=== PATIENT | female | born 1950 | race African-American/Black ===

== ENCOUNTER → 2020-05-21 10:21 | Outpatient (CLI) | payer MEDICARE, OTHER, SELFPAY ==
--- NOTE | ~2020-05-21 | MM_ITS ---
EXAMINATION: MM screening [facility] BI w delmy HISTORY: Screening TECHNIQUE: Craniocaudal and mediolateral oblique 3-D tomosynthesis images were obtained and synthetic 2-D images were generated. CAD analysis was submitted and interpreted. COMPARISON: Comparison to multiple prior studies sequentially, with oldest reviewed study dated 06/2014. BREAST PARENCHYMAL COMPOSITION: The breasts are heterogeneously dense, which may obscure small masses . FINDINGS: There is no evidence of suspicious mass, calcification, or architectural distortion to sugg est malignancy in either breast. There has been no suspicious interval change. IMPRESSION: 1. No mammographic evidence of malignancy. 2. Recommend routine screening mammography in one year. BI-RADS Category 1: Negative Reviewed, dictated and finalized at location A.
== END ==
PROVIDERS: PCP Family Medicine; Visit Provider Family Medicine
DX: Z12.31 Encounter for screening mammogram for malignant neoplasm of breast (principal)
CPT/HCPCS: 77063; 77067

== ENCOUNTER 2020-05-25 05:09 | Emergency (ER) | payer MEDICARE, OTHER, SELFPAY ==
[2020-05-25] VITALS (13 sets, daily range): BP systolic 131–153; BP diastolic 80–92; PULSE 80–97; RESP 15–27; TEMP 36.6; O2SAT 96–100
--- NOTE | ~2020-05-25 | CT_ITS ---
EXAMINATION: CT brain wo con DATE: 05/25/2020 06:30 INDICATION: Dizziness TECHNIQUE: Computed tomography (CT) of the head was performed without intravenous contrast. Sagittal and coronal reconstructions were performed. The mA was adjusted according to patient size. Iterative reconstruction technique was employed. The dose-length product was 605.33 mGy-cm. COMPARISON: None FINDINGS: No acute intracranial hemorrhage, acute infarction or abnormal extra axial fluid collection. There is moderate scattered white matter hypoattenuation consistent with chronic small vessel ischemic diseas e. Ventricles are normal and symmetric. No mass/mass effect. Mucosal thickening in the left maxillary and right ethmoid sinuses. The orbits and mastoid air cells are normal. IMPRESSION: 1. Moderate scattered white matter hypoattenuation consistent with chronic small vessel ischemic dise ase. No acute intracranial process. Reviewed, dictated and finalized at location A. IMPRESSION: 1. Moderate scattered white matter hypoattenuation consistent with chronic smal l vessel ischemic disease. No acute intracranial process.
--- NOTE | 2020-05-25 05:40 | PC.NURSE ---
Pt presents to ED with complaints of lightheadedness and dizziness that onset yesterday night at 1900 after eating dinner. Pt states she was sitting with when dizziness onset. Pt states she began to feel lightheaded and shortly after she vomit. 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 Pt states emesis and nausea onset every time she moved. Norvasc 10mg taken at approx 2130 and pt states shortly after she vomit. States that every time she ambulated she needed assistance from her because she felt as if she was being pushed backward. Pt denies similar events in the past and also denies dx of vertigo. Pt is alert and oriented x4 and resting on cart with complaints that the room feels as if it is spinning at times. present at bedside. Call button and personal items within reach. Advised to press call button for assistance.
--- NOTE | 2020-05-25 05:44 | ECG_ITS ---
Measurements Intervals [place] Rate: 84 P: 26 [place]: 203 QRS: -4 QRSD: 96 T: 20 QT: 387 QTc: 460 Interpretive Statements SINUS RHYTHM VOLTAGE CRITERIA FOR LVH BORDERLINE T WAVE ABNORMALITY- ANT/INF LEADS BASELINE ARTIFACT- I, II, V3-V4 BORDERLINE ECG Electronically Signed On 05-25-2020 8:46:11 CDT by Shahid Martin D.O.
--- NOTE | 2020-05-25 05:57 | ED.GENADULT ---
HPI - General Adult General Chief complaint: Dizziness <Kirill Arnold MD - Last Filed: 05/25/20 07:00> Stated complaint: dizzy/ light headed <Kirill Arnold MD - Last Filed: 05/25/20 07:00> Time Seen by Provider: 05/25/20 05:45 <Kirill Arnold MD - Last Filed: 05/25/20 07:00> History of Present Illness HPI narrative: Patient 69-year-old female presents the emergency department chief complaint of dizziness. Patient states that around 7 PM she noticed that it felt like the room was moving around her and felt like she was coming off balance patient reports that she started to become nauseated and vomited. Patient reports that earlier this week she been having some issues with constipation took 2 antivirals and has taken a laxative several times. The patient states that she has started to have a small bowel movement afterwards but now still feels as though she has not had complete elimination. Patient states that she is not having any chest pain or shortness of breath reports that she does have history of hypertension no prior history of stroke. Patient states that she is a non-smoker and nondrinker <Kirill Arnold MD - Last Filed: 05/25/20 07:00> Related Data Allergies/adverse reactions: Allergies Allergy/AdvReac Type Severity Reaction Status Date / Time propoxyphene Allergy Mild NAUSEA AND Verified 05/25/20 05:23 VOMITING NSAIDS (Non-Steroidal Allergy Unknown RASH Verified 05/25/20 05:23 Anti-Inflamma Opioids - Morphine Analogues Allergy Unknown RASH Verified 05/25/20 05:23 Sulfa (Sulfonamide Allergy Unknown Rash Verified 05/25/20 05:23 Antibiotics) acetaminophen AdvReac Intermediate Hives / Verified 05/25/20 05:23 Red Face oxycodone AdvReac Intermediate Hives / Verified 05/25/20 05:23 Red Face TUMERIC Allergy Unknown Rash Uncoded 05/25/20 05:23 <Kirill Arnold MD - Last Filed: 05/25/20 07:00> Review of Systems Review of Systems: Narrative: A 10 system review of systems was completed on the patient and is negative except for what is stated in the HPI. Nursing and ancillary documentation was reviewed. <Kirill Arnold MD - Last Filed: 05/25/20 07:00> PMFSH Family History Family History: Family History Sibling Family history of coronary artery disease Father Hypertension Mother Hypertension Family history of diabetes mellitus in first degree relative <Kirill Arnold MD - Last Filed: 05/25/20 07:00> Social History Social History: Social History Smoking status: Never smoker Second hand tobacco smoke exposure: No Alcohol intake: never Substance use: never Substance use type: does not use Gender identity (if verbalized by the patient): Female Sexual Orientation (if Verbalized by the Patient): Straight or Heterosexual <Kirill Arnold MD - Last Filed: 05/25/20 07:00> Exam Narrative: Exam Narrative: GENERAL: Well-appearing, well-nourished, and in no acute distress. HEAD: Normocephalic, atraumatic. EYES: PERRLA and EOMI. ENT: Nares clear, no rhinorrhea or epistaxis. Mucous membranes moist. NECK: Supple. CHEST: Clear to auscultation. No respiratory distress. HEART: Regular rate and rhythm. No murmur heard. Normal peripheral pulses. ABDOMEN: Soft, nontender, nondistended, normal active bowel sounds. EXTREMITIES: Normal range of motion. No edema. SKIN: Warm, dry, no rash. NEURO: No focal deficits. Alert and oriented x3. PSYCH: Normal mood and affect. <Kirill Arnold MD - Last Filed: 05/25/20 07:00> Course Course Emergency Course: Patient is starting to feel better now after the fluids nausea medication and Antivert <Kirill Arnold MD - Last Filed: 05/25/20 07:00> Vital Signs Vital signs: Vital Signs
[2020-05-25 06:07] LABS: Basophils Percent Auto 0.4 % (0.2-1.2); Eosinophils Percent Auto 0.1 % (0-4.4); Hematocrit 37.3 % (37.0-47.0); Hemoglobin 13.1 g/dL (12.0-15.0); Immature Granulocyte Absolute 0.03 K/mm3 (0.00-0.031); Immature Granulocyte Percent A 0.3 % (0-0.5); Lymphocytes Absolute Auto 1.18 K/mm3 (0.9-3.2); Lymphocytes Percent Auto 10.8 % (18.3-44.2); Mean Corpuscular HGB Conc 35.1 g/dl (32-36); Mean Corpuscular Hemoglobin 30.3 pg (26-34); Mean Corpuscular Volume 86.3 fl (80-100); Monocytes Absolute Auto 0.4 K/mm3 (0.1-0.6); Monocytes Percent Auto 3.8 % (2.6-8.5); Neutrophils Absolute Auto 9.3 K/mm3 (1.3-6.7); Neutrophils Percent Auto 84.6 % (45.5-73.1); Platelet Count Result 348 k/mm3 (150-375); Red Blood Count 4.32 M/mm3 (4.2-5.4); Red Cell Distribution Width 13.9 % (11.5-14.5)
[2020-05-25] MEDS: MECLIZINE HCL 25 MG TABLET PO (06:09)
[2020-05-25] MEDS: SODIUM CHLORIDE 0.9% IV 1,000 ML 999 ML IV CONT (06:09)
[2020-05-25] MEDS: PROCHLORPERAZINE EDISYLATE 10 MG/2 ML VIAL IV PUSH (06:09)
[2020-05-25 06:12] LABS: Alanine Aminotransferase 22 U/L (4-35); Albumin Level 4.7 g/dL (3.5-5.1); Alkaline Phosphatase 80 U/L (38-126); Anion Gap 9 mmol/L (8-16); Aspartate Amino Transferase 31 U/L (14-36); Bilirubin,Total 0.4 mg/dL (0.2-1.3); Blood Urea Nitrogen 19 mg/dL (7-17); Calcium 9.5 mg/dL (8.4-10.2); Carbon Dioxide 30 mmol/L (22-30); Chloride 105 mmol/L (98-107); Estimated CRCL calculation 46 ml/min; Estimated Glomerular Filt Rate > 60; Glucose 184 mg/dL (65-105); Potassium 3.2 mmol/L (3.4-5.0); Sodium 144 mmol/L (137-145)
[2020-05-25 06:32] LABS: Troponin I < 0.012 ng/mL (0.000-0.034)
[2020-05-25 06:47] LABS: Add Urine Microscopic? YES; Appearance Urine Cloudy (Clear); Bacteria Urine Trace /hpf; Bilirubin Urine Negative (Negative); Blood Urine Negative (Negative); Color Urine Yellow (Yellow); Glucose Urine UA Negative (Negative); Ketones Urine Negative (Negative); Leukocyte Esterase Ur 1+ LEU/UL (Negative); Nitrate Urine Negative (Negative); Protein Urine 1+ mg/dL (Negative); RBC Urine 0-2 /hpf (0-2); Specific Grav Ur 1.011 (1.001-1.035); Squamous Epithelial Cell Urine Rare /hpf (Few); Urobilinogen Urine Negative mg/dL (<2.0)
--- NOTE | 2020-05-25 06:50 | PC.NURSE ---
Pt states she feels better since administration of medications. Pt states dizziness is very mild at this time and denies nausea and emesis at this moment. Pt remains alert and oriented x4 with stable vitals and is in no obvious distress. Spouse remains at bedside. Pt advised to press call button for assistance.
[2020-05-25] MEDS: HYDROGEN PEROXIDE 3% SOLN(*SP) 473 ML BOTTLE (07:46)
[2020-05-25] MEDS: POTASSIUM CHLORIDE 20 MEQ PACKET (FOR LIQUID) 40 MEQ PO (10:14)
== END 2020-05-25 10:16 | disposition home or self-care (01) ==
PROVIDERS: Emergency Medicine; Emergency Provider Emergency Medicine; PCP Family Medicine
DX: R42 Dizziness and giddiness (principal); H61.21 Impacted cerumen, right ear; R82.998 Other abnormal findings in urine; R94.31 Abnormal electrocardiogram [ECG] [EKG]
CPT/HCPCS: 36415; 70450; 80053; 81001; 84484; 85025; 87086; 87088; 93005; 96361; 96374; 99284; A9270; J0780; J7030

== ENCOUNTER → 2021-08-05 10:45 | Outpatient (CLI) | payer MEDICARE, OTHER, SELFPAY ==
--- NOTE | ~2021-08-05 | MM_ITS ---
EXAMINATION: MM screening [facility] BI w delmy HISTORY: Screening TECHNIQUE: Craniocaudal and mediolateral oblique 3-D tomosynthesis images were obtained and synthetic 2-D images were generated. CAD analysis was submitted and interpreted. COMPARISON: Comparison to multiple prior studies sequentially, with oldest reviewed study dated 06/2014. BREAST PARENCHYMAL COMPOSITION: There are scattered areas of fibroglandular density. FINDINGS: There is no evidence of suspicious mass, calcification, or architectural distortion to sugg est malignancy in either breast. There has been no suspicious interval change. IMPRESSION: 1. No mammographic evidence of malignancy. 2. Recommend routine screening mammography in one year. BI-RADS Category 1: Negative Reviewed, dictated and finalized at location A.
== END ==
PROVIDERS: PCP Family Medicine; Visit Provider Family Medicine
DX: Z12.31 Encounter for screening mammogram for malignant neoplasm of breast (principal)
CPT/HCPCS: 77063; 77067

== ENCOUNTER → 2022-03-10 10:25 | Outpatient (CLI) | payer MEDICARE, OTHER, SELFPAY ==
--- NOTE | ~2022-03-10 | MMUS_ITS ---
EXAMINATION: MM diagnostic [facility] LT w delmy, US breast LT complete HISTORY: Left nipple itching TECHNIQUE: Additional 3-D tomosynthesis images of the left breast were performed and synthetic 2-D im ages were generated. CAD analysis was submitted and interpreted. High resolution complete left breast ultrasound was performed. COMPARISON: Comparison to multiple prior studies sequentially, with oldest reviewed study dated 03/2015. BREAST PARENCHYMAL COMPOSITION: The breasts are heterogeneously dense, which may obscure small masses FINDINGS: MAMMOGRAPHIC FINDINGS: There are no suspicious masses, calcifications or architectural distortion in the left breast to sugg est malignancy. ULTRASOUND: Complete US of all 4 quadrants of the left breast and retroareolar region was reviewed. At 3:00, 6 cm from the nipple there is a 4 mm cyst. No suspicious masses, calcifications or architectural distorti on in the left breast to suggest malignancy. IMPRESSION: 1. No evidence for malignancy in the left breast. 2. Routine yearly screening mammogram and regular clinical breast examination are recommended. BI-RADS Category 2: Benign finding(s). Reviewed, dictated and finalized at location A. 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 No evidence for malignancy in the left breast. 2. Routine yearly screening mammogram and regular clinical breast examination a re recommended. BI-RADS Category 2: Benign finding(s).
== END ==
PROVIDERS: PCP Family Medicine; Visit Provider Nurse Practitioner Obstetrics & Gynecology
DX: N63.20 Unspecified lump in the left breast, unspecified quadrant (principal); L29.9 Pruritus, unspecified; N64.53 Retraction of nipple
CPT/HCPCS: 76641; 77061; 77065; G0279

== ENCOUNTER → 2022-07-09 09:03 | Outpatient (CLI) | payer MEDICARE, OTHER, SELFPAY ==
--- NOTE | ~2022-07-09 | US_ITS ---
US breast LT complete DATE: 07/09/2022 09:53 INDICATION: Changes in breast examination since February 2022. Inflamed nipple, nipple tenderness. TECHNIQUE: Real-time imaging of complete left breast COMPARISON: 03/10/2022 diagnostic left mammogram and complete left breast ultrasound 08/05/2021 bilateral screening mammogram FINDINGS: 3:00 7 cm from nipple: Parallel circumscribed 1.3 x 4.5 x 6 mm circumscribed sonolucency without inte rnal vascular posterior shadowing, benign in appearance 6:00 subareolar area: Parallel circumscribed hypoechoic lesion measuring 2.5 x 1.2 x 3.2 mm, without internal vascularity or posterior shadowing. No suspicious mass or suspicious shadowing or suspicious vascularity of the breast is evident. If the clinical findings do not resolve or worsens, consider repeat diagnostic mammogram and possibly MR breast examination. Otherwise 6 month diagnostic left mammogram and left breast. Follow-up are re commended. IMPRESSION: BI-RADS Category 3: Probably benign Six-month follow-up diagnostic left mammogram and left breast ultrasound examination are recommended. If symptoms persist or increase, consider MR breast imaging. Reviewed, dictated and finalized at Location A. Reviewed, dictated and finalized at location A. IMPRESSION: BI-RADS Category 3: Probably benign Six-month follow-up diagnostic left mammogram and left breast ultrasound examin ation are recommended. If symptoms persist or increase, consider MR breast imag ing.
== END ==
PROVIDERS: PCP Nurse Practitioner Obstetrics & Gynecology; Visit Provider Nurse Practitioner Obstetrics & Gynecology
DX: L29.9 Pruritus, unspecified (principal); N63.20 Unspecified lump in the left breast, unspecified quadrant; N64.53 Retraction of nipple
CPT/HCPCS: 76641

== ENCOUNTER 2024-03-27 13:36 | Outpatient (CLI) | payer MEDICARE, OTHER, SELFPAY ==
[2024-03-27 14:40] LABS: Influenza A QL RT-PCR Negative (Negative); Influenza B QL RT-PCR Negative (Negative); RSV RNA, RT-PCR Negative (Negative); SARS-CoV-2 RNA PCR Positive (Negative)
--- OUTSIDE RECORDS SUMMARY | 2024-03-27 16:11 | XMS_ITS | Clinical Summary ---
Author Organization [facility] [address] [facility] Address [address] [place] [address] Phone Care Team Providers Care Field Sales Engineer Name Role Phone Ramyon Juarez MD Primary Care Provider Allergies Active Allergy Reactions Criticality Noted Date Comments Nsaids (Non-Steroidal Anti-I nflammatory Drug) Unknown 12/01/2016 Sulfa (Sulfonamide Antibiotics) Unknown 11/09 Medications amLODIPine (NORVASC) 10 mg tablet 08/19/2016 Active cholecalciferol , vitamin D3, (D3-2000 ORAL) Take 1,000 Int'l Units by mouth Active aspirin 81 mg enteric coated tablet Take 1 tablet (81 mg total) by mouth daily Active calcium citrate/vitamin D3 (CITRACAL + D ORAL) Take by mouth Active UNABLE TO FIND On 4 chemo meds Active alendronate (FOSAMAX) 70 mg tablet TAKE 1 TABLET BY MOUTH ONCE EVERY 7 DAYS BEFORE A MEAL. 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 Still with right shoulder pain with activity. Did receive a corticosteroid injection into right shoulder last month with benefit for a few days but not longer. Also with stiffness/pain in hips/proximal lower extremities with inactivity although pain resolved within a few minutes of activity. I suspect may have right shoulder and hip OA and possibly right rotator cuff tendonopathy. Feels well today and has no current clinical evidence of an inflammatory process although PMR remains possible with her proximal lower extremity involvement. CRP remains elevated at 14.4 mg/L which is improved. Pt is doing PT and water aerobics, both which she feels helps with her pain complaints. Would recommend to continue this. Will do a trial of skelaxin 800 mg qHS prn as she has been on this before with benefit. If symptoms progress will consider prednisone for PMR although my suspicion for this is low currently. Pt to call for follow up if symptoms fail to improve or worsen. Myalgia 11/10/2016 Overview (12/01/2016): Has had generalized pain and stiffness, worse in shoulder girdle and thighs since July. Has had difficulty ambulating and getting up from a sitted position due to symptoms in legs. Also with elevated CRP at 17.7 mg/L, 22.5 mg/L Symptoms resolved completely with medrol dose pack. Assessment & Plan (01/25/2017 4:03 PM VALVE MECHANIC): Assessment & Plan (12/01/2016 11:22 AM CDT): Symptoms worse in right shoulder and to lesser degree proximal lower extremities. All symptoms resolved with 21 day course of prednisone as prescribed by Dr. Juarez. Serology unremarkable other than CRP remains high at 22.5 mg/L, previously 17 mg/L. Based on distribution of symptoms, elevated CRP and response to prednisone PMR remains possible although is unusual left shoulder girdle is not affected. Symptoms are tolerable per pt and she is doing PT for right shoulder and water aerobics which she feels helps overall. I discussed starting prednisone for presumed PMR although pt wants to hold off and continue her current regimen of ibuprofen prn, PT for right shoulder and water aerobics. If symptoms progress she will reconsider. Will repeat ESR and CRP before next appointment. F/u 2 months. Assessment & Plan (11/10/2016 2:37 PM CDT): Has had generalized pain and stiffness, worse in shoulder girdle and thighs since July. Has had difficulty ambulating and getting up from a sitted position due to symptoms in legs. Also with elevated CRP at 17.7 mg/L. Symptoms resolved completely with medrol dose pack. Pt took last dose today and has essentially no complaints. Has no significant peripheral joint complaints. Exam findings minimal today and she reports feeling well. Based on distribution of symptoms, elevated CRP, and response to the medrol dose pack I suspect PMR. Other less likely etiologies are an inflammatory myositis, inflammatory arthritis, SpA, SLE, or other connective tissue disease. Will obtain labs as below. As she is feeling so well will hold off on resuming prednisone although will give her a script of prednisone 15 mg daily to start taking if her symptoms recur prior to her first follow up appointment. F/u 2 weeks. Hypertension Hypercholesterolemia Resolved Problems Problem Noted Date Diagnosed Date Resolved Date Abnormal laboratory test result 11/10/2016 12/01/2016 Assessment & Plan (11/10/2016 2:40 PM CDT): CRP 17.7 mg/L per labs last week as drawn by PCP for arthralgias, myalgias. Likely due to PMR based on history and exam findings. Will repeat labs as below. Surgical History Surgery Date Site/Laterality Comments ROTATOR CUFF REPAIR Bilateral Medical History Medical History Date Comments Hypertension Skin disorder left leg 2016 Heart valve disease Murmur Family History Medical History Relation Name Comments Parkinson Brother Heart failure Father Kidney failure Father Pneumonia Mother Relation Name Status Comments Brother (Age 70) Father (Age 90) Mother (Age 87) Social History Tobacco Use Types Packs/Day Years Used Date Smoking Tobacco: Never Smokeless Tobacco: Never Tobacco Cessation:Counseling Given: Not Answered Alcohol Use Standard Drinks/Week Comments No 0 (1 standard drink = 0.6 oz pur e alcohol) Personal Safety Answer Date Recorded Getting School Help Needed Not on file 02/18 Comments Unknown Sex and Gender Information Value Date Recorded Sex Assigned at Not on file Legal Sex Female 12:32 AM VALVE MECHANIC Gender Identity Not on file Sexual Orientation Not on file Obstetrics History Last Filed Vital Signs Vital Sign Reading Time Taken Comments Blood Pressure 118/72 10/18/2023 9:11 AM CDT Pulse 93 10/18/2023 9:11 AM CDT Temperature - - Respiratory Rate - - Oxygen Saturation 95% 10/18/2023 9:11 AM CDT Inhaled Oxygen Concentration - - Weight 62.6 kg (138 lb) 10/18/2023 9:11 AM CDT Height 157.5 cm (5' 2 ) 10/18/2023 9:11 AM CDT Body Mass Index 25.24 10/18/2023 9:11 AM CDT Plan of Treatment Health Maintenance Due Date Last Done Comments Colon Cancer Screening-Colonoscopy 1950 Depression Screening 1950 Fall Risk Assessment 1950 Hepatitis C Screening 1950 DTaP/Tdap/Td Vaccine (1 - Tdap) 1961 Hepatitis B Screening 1968 Pneumococcal vaccine 65+ (1 of 2 - PCV) 1969 Zoster Vaccine (1 of 2) 1969 Well Visit 65+ 06/01/2015 Influenza Vaccine (#1) 2023 Breast Cancer Screening-Mammogram 08/16/2024 08/17/2023, 08/17/2023, 08/13/2022 Osteoporosis Screening-Bone Density Scan 02/10/2025 02/10/2023, 02/10/2023 Insurance MEDICARE [place] MEDICARE [place] MEDICARE [facility] [place] [address] Care Teams Field Sales Engineer Relationship Specialty Start Date End Date Raymon Juarez MD [address] [facility] [address] [place], [place] [id number] PCP - General Family Medicine 11/05/16
--- OUTSIDE RECORDS SUMMARY | 2024-03-27 16:11 | XMS_ITS | Data Portability ---
Author Organization 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 Plan of Treatment Reminders Order Date Submit Date Provider Last Modified By Organization Details Last Modified Time Details Appointments None recorded. Lab None recorded. Referral breast surgery referral - Lump in central portion of left breast. Nipple mass/skin non-healing /itch.Jacque e contact this patient to schedule an appointment with a breast specialist KELLEE for a consultatio n.If you have any questions, please call [phone].Thank you,Shani, Referral's 2022 023 BARRY Chu MD ( [facility]), [address] [facility] [address], [place], [address], 3 05:01:16 Procedures None recorded. Surgeries None recorded. Imaging US, breast, unilateral, complete - Changes in breast exam today 2022 023 [facility], [address], [place], [address], 3 10:00:26 MAMMO, diagnostic, unilateral - Patient may leave once imaging is completed & our office will notify her of the next steps. 2022 023 jacky [facility], [address], [place], [address], 3 11:27:23 US, breast, unilateral, complete - Patient may leave once imaging is completed & our office will notify her of the next steps. 2022 023 [facility], [address], [place], [address], 3 16:07:36 Medication Orders triamcinolo ne acetonide 0.5 % topical ointment 2023 024 [facility] [address], [place], [address], 4 11:31:37 nystatin 100,000 unit/gram topical ointment [address] [facility] [address] [place], [address], 3 09:53:23 hydrocortis one 0.5 % topical ointment [address] [facility] [address] [place], [address], 3 11:03:31 Patient TargetsNo targets recorded. Patient InstructionsNo instructions recorded. Reason for Referral Breast Surgery Referral for Mass of central portion of left breast Nipple mass/skin non-healing/itch Lump in central portion of left breast. Nipple mass/skin non-healing/itch.Please contact this patient to schedule an appointment with a breast specialist KELLEE for a consultation.If you have any questions, please call [phone].Thank you,Shani Referral's Referring Physician: Yisel Sahu, AUTO TECHNICIAN MECHANIC, Encounter Date: 07/09/2022 Results Created Date Observation Date Name Description Value Unit Range Abnormal Flag Note LastModifiedBy Organization Detail LastModifiedTime 03/10/1903/10/2022 US, breas t, unila teral , compl ete No observ ation record ed. [email or web address] [facility] [address], [place], [address], 03/19/2022 16:08:22 07/10/19 23 07/09/2022 US, breas t, unila teral , compl ete No observ ation record ed. [facility] [address], [place], [address], 07/14/2022 10:00:27 Result Notes None recorded. Problems Name Problem SNOMED Code Status Onset Date Resolution Date Notes Provider Name and Address Organization Details Recorded Time Leukocyto sis 100819383 Active 2011 LEUKOCYTOS IS NOS;Record ed Elsewhere: No Locatio n: [facility] rce: EHR Chroni c: N Practice ID: 0001 Billa ble Time: 10:45:00 AM Not Available [facility] 0 18:10:46 Finding of trunk structure 387581251 Active 2012 Abdominal or pelvic swelling, mass, or lump, generalize d;Recorded Elsewhere: No Locatio n: [facility] rce: EHR Chroni c: N Practice ID: 0001 Billa ble Time: 03:30:00 PM Not Available [facility] 0 18:10:[address] Concept Active 2018 Encntr for general adult medical exam w/o abnormal findings;R ecorded Elsewhere: No Locatio n: [facility] rce: EHR Chroni c: N Practice ID: 0001 Billa ble Time: 08:30:00 AM Not Available [facility] 0 18:10:46 Left lower quadrant pain 177889771 Active 2016 LLQ pain;Recor ded Elsewhere: No Locatio n: [facility] rce: EHR Chroni c: N Practice ID: 0001 Billa ble Time: 11:30:00 AM Not Available [facility] 0 18:10:46 Pelvic and perineal pain 551513103 Active 2016 Pelvic and perineal pain;Recor ded Elsewhere: No Locatio n: [facility] rce: EHR Chroni c: N Practice ID: 0001 Billa ble Time: 09:00:00 AM Not Available [facility] 0 18:10:46 Specializ ed medical examinati on Active 2014 Gynecologi christopher Examinatio n;Recorded Elsewhere: No Locatio n: [facility] rce: EHR Chroni c: N Practice ID: 0001 Billa ble Time: 11:30:00 AM Not Available [facility] 0 18:10:46 Screening for malignant neoplasm of cervix Active 2016 Encounter for screening for malignant neoplasm of cervix;Rec orded Elsewhere: No Locatio n: [facility] rce: EHR Chroni c: N Practice ID: 0001 Billa ble Time: 11:30:00 AM Not Available [facility] 0 18:10:46 Adult health examinati on Active 2014 ROUTINE MEDICAL EXAM;Recor ded Elsewhere: No Locatio n: [facility] rce: EHR Chroni c: N Practice ID: 0001 Billa ble Time: 11:30:00 AM Not Available [facility] 0 18:10:46 Screening for malignant neoplasm of rectum Active 2019 Encounter for screening for malignant neoplasm of rectum;Rec orded Elsewhere: No Locatio n: [facility] rce: EHR Chroni c: N Practice ID: 0001 Billa ble Time: 08:45:00 AM Not Available [facility] 0 18:10:46 Pain of breast 15460245 Active 2011 Mastodynia ;Recorded Elsewhere: No Locatio n: [facility] rce: EHR Chroni c: N Practice ID: 0001 Billa ble Time: 04:00:00 PM Not Available [facility] 0 18:10:46 Finding of trunk structure 953763600 Active 2018 Generalize d intra-abd and pelvic swelling, mass and lump;Recor ded Elsewhere: No Locatio n: [facility] rce: EHR Chroni c: N Practice ID: 0001 Billa ble Time: 03:00:00 PM Not Available [facility] 0 18:10:[address] Concept Active 2015 Well woman check w/o abnormal finding;Re corded Elsewhere: No Locatio n: [facility] rce: EHR Chroni c: N Practice ID: 0001 Billa ble Time: 11:00:00 AM Not Available [facility] 0 18:10:47 Uterine leiomyoma 49892355 Active 2012 Leiomyoma of uterus, unspecifie d;Recorded Elsewhere: No Locatio n: [facility] rce: EHR Chroni c: N Practice ID: 0001 Billa ble Time: 03:30:00 PM Not Available [facility] 0 18:10:47 Screening for malignant neoplasm of colon Active 2010 Special screening for malignant neoplasms, colon;Prac domingo ID: 0001 Not Available [facility] 0 18:10:48 Problem Notes None recorded. Procedures Surgical History Date Name Laterality Status Provider Name and Address Organization Details Recorded Time 09/10/19 23 lumpectomy of breast completed Sangeeta Gupta [facility] 06/08/2023 11:16:32 07/10/19 22 Date of Last Mammogram completed Clara Camejo [facility] 03/10/2022 10:48:18 02/25/19 19 Date of Last Pap Smear completed [facility] 12/13/2021 09:20:04 02/08/19 09 Dilation and Curettage completed [facility] 12/13/2021 09:17:58 06/09/19 04 complete repair of rotator cuff completed [facility] 12/13/2021 09:18:37 02/08/18 79 Tubal Ligation completed [facility] 12/13/2021 09:17:23 shoulder manipulation completed [facility] 12/13/2021 09:18:19 Imaging Results Imaging Date Name Status LastModified by Organiz ation Details LastModified Time 03/10/2022 US, breast, unilateral, complete completed [email or web address] [facility] [address], [place], [address], 03/19/2022 16:08:22 07/09/2022 US, breast, unilateral, complete completed [facility] [address], [place], [address], 07/14/2022 10:00:27 Procedure Notes None recorded. Medical Equipment None Reported. Allergies Allergen ID Allergen Name Allergen Category Reaction Reaction Severity Criticality Documentation Date Start Date Code Code System Note Provider Name and Address Organization Details Recorded Time 46625 acetamino phen medicatio n Not available Not available Not available 01/26/2020 161 RxNorm Comme nt: [facility]at [facility] C[facility] sativ e Agent : Darvo cet-N 100; Not Available [facility] 0 14:14:54 69157 iodine medicatio n Not available Not available Not available 01/26/2020 5933 RxNorm React ion: hive (mild );Sev erity : mild; Comme nt: [facility]at [facility]; Not Available [facility] 0 14:14:54 68107 Non-stero idal anti-infl ammatory agent (product) medicatio n Not available Not available Not available 01/26/2020 38540 005 SNOMED Comme nt: [facility]at [facility]: [facility]; Not Available [facility] 0 14:14:55 26029 Substance with morphinan structure and opioid receptor agonist mechanism of action (substanc e) medicatio n Not available Not available Not available 01/26/2020 00008 9000 SNOMED Comme nt: [facility]at [facility]: [facility]; Not Available [facility] 0 14:14:55 98186 Substance with sulfonami de structure and antibacte rial mechanism of action (substanc e) medicatio n Not available Not available Not available 01/26/2020 19540 8003 SNOMED Comme nt: Locat ion: Karl burciaga; Not Available [facility] 0 14:14:55 01663 Product containin g glucocort icoid (product) medicatio n Not available Not available low 01/26/2020 66300 6006 SNOMED Oral only not topic alCom ment: Locat ion: [facility]; Sangeeta Gupta [facility] 3 09:39:58 56626 Product containin g 3-hydroxy -3-methyl glutaryl- coenzyme A reductase inhibitor (product) medicatio n Not available Not available Not available 03/10/2022 97473 009 SNOMED Clara Camejo [facility] 3 10:46:05 68379 Keflex medicatio n Not available Not available Not available 03/10/2022 80737 7 RxNorm Clara Camejo [facility] 3 10:46:17 Medications Name Sig Start Date Stop Date Status Note LastModified by Organization Details LastModified Time furosemid e 40 mg tablet TAKE 1 TABLET BY MOUTH ONCE DAILY FOR 5 DAYS THEN 1/2 (ONE-LAURA F) ONCE DAILY THEREAFT ER 06/07 completed Not Available Not Available Not Available silver sulfadiaz ine 1 % topical cream APPLY CREAM EXTERNAL LY TO AFFECTED AREA TWICE DAILY 06/07 completed Not Available Not Available Not Available anastrozo le 1 mg tablet TAKE 1 TABLET BY MOUTH ONCE DAILY active Not Available Not Available No t Available nystatin 100,000 unit/gram topical ointment APPLY OINTMENT TOPICALL Y TO AFFECTED AREA TWICE DAILY NEEDED active Not Available Not Available No t Available fluconazo le 150 mg tablet TAKE 1 TABLET BY MOUTH A ONE TIME DOSE 06/07 completed Not Available Not Available Not Available cephalexi n 250 mg capsule TAKE 1 CAPSULE BY MOUTH THREE TIMES DAILY FOR 10 DAYS 12/13 completed Not Available Not Available Not Available ondansetr on HCl 8 mg tablet TAKE 1 TABLET BY MOUTH EVERY 8 HOURS NEEDED FOR NAUSEA/V OMITING 06/07 completed Not Available Not Available Not Available alendrona te 70 mg tablet TAKE ONE TABLET BY MOUTH EVERY 7 DAYS BEFORE A MEAL , TAKE IN THE MORNING WITH A FULL GLASS OF WATER ON AN EMPTY STOMACH AND REMAIN UPRIGHT FOR 30 MINUTES active Not Available Not Available No t Available triamcino lone acetonide 0.5 % topical ointment APPLY A THIN LAYER OF OINTMENT TOPICALL Y TO THE AFFECTED AREA(S) TWICE DAILY NEEDED active Not Available Not Available No t Available fluocinon pooja 0.05 % topical ointment APPLY TO THE AFFECTED AREAS ON THE LEG TWICE DAILY FOR 2 WEEKS PER MONTH. active Not Available Not Available No t Available prochlorp erazine maleate 10 mg tablet TAKE 1 TABLET BY MOUTH EVERY 6 HOURS NEEDED FOR NAUSEA/V OMITING active Not Available Not Available No t Available aspirin 81 mg tablet,de layed release take 1 tablet by oral route every day 12/13 completed Prescrib ed Elsewher e: Yes Loca tion: Santhosh radha [facility] odify By: mitch jackson DateTime : 02/28/19 08:45:00 AM Not Available Not Available Not Available amoxicill in 500 mg tablet take 1 tablet by oral route 3 times every day for 10 days 10/20 completed Prescrib ed Elsewher e: No Locat ion: Vikash garcia [facility] odify By: mónica Patel r DateTime : 10/12/19 15 02:38:38 PM Not Available Not Available Not Available lidocaine -prilocai ne 2.5 %-2.5 % topical cream APPLY 2.5G TO AFFECTED AREA ONCE FOR 1 DOSE 06/07 completed Not Available Not Available Not Available Vitamin B-12 50 mcg tablet active Prescrib ed Elsewher e: Yes Loca tion: Vikash [facility] odify By: vinh hamlin DateTime : 07/28/19 12 04:00:00 PM Not Available Not Available Not Available flaxseed oil 1,000 mg capsule 04/15 completed Prescrib ed Elsewher e: Yes Loca tion: Vikash garcia [facility] odify By: karen Patel r DateTime : 07/28/19 12 04:00:00 PM Not Available Not Available Not Available Vitamin D3 10 mcg (400 unit) tablet 10/01 completed Prescrib jeyson Vargas e: Yes Loca tion: Vikash garcia [facility] Lizbet baltazar By: garcia Radha renetta DateTime : 09/08/19 12 10:45:00 AM Not Available Not Available Not Available potassium chloride ER 20 mEq tablet,ex tended release(p art/cryst ) TAKE 1 TABLET BY MOUTH ONCE DAILY active Not Available Not Available No t Available amlodipin e 10 mg tablet TAKE 1 TABLET BY MOUTH ONCE DAILY active Not Available Not Available No t Available benzonata te 100 mg capsule TAKE 1 TO 2 CAPSULES BY MOUTH THREE TIMES DAILY NEEDED FOR COUGH . DO NOT EXCEED 6 PER 24 HOURS . 06/07 completed Not Available Not Available Not Available hydrocodo ne 7.5 mg-acetam inophen 325 mg tablet TAKE 1 TABLET BY MOUTH EVERY 6 HOURS NEEDED FOR PAIN 06/07 completed Not Available Not Available Not Available methylpre dnisolone 8 mg tablet PLEASE TAKE FOUR TABLETS BY MOUTH [address] SCAN AND FOUR TABLETS [address] SCAN. 06/07 completed Not Available Not Available Not Available pantopraz ole 40 mg tablet,de layed release TAKE 1 TABLET BY MOUTH ONCE DAILY active Not Available Not Available No t Available triamcino lone acetonide 0.1 % topical ointment APPLY TO RED, ITCHY AREAS ON THE LEGS TWICE DAILY FOR UP TO 2 WEEKS PER MONTH. 12/13 completed Not Available Not Available Not Available dexametha sone 4 mg tablet DURING CYCLES 1 THROUGH 6, TAKE 2 TABLETS BY MOUTH ONCE DAILY ON DAY 2,3,4 OF EACH 21 DAY CYCLE. 06/07 completed Not Available Not Available Not Available prednison e 50 mg tablet TAKE 1 TABLET BY MOUTH 13 HOURS, 7 HOURS, AND 1 HOUR BEFORE CONTRAST MEDIUM ADMINIST RATION 06/07 completed Not Available Not Available Not Available lorazepam 1 mg tablet TAKE 1 TABLET BY MOUTH 30 MINUTES BEFORE MRI AND THEN REPEAT IF NEEDED. 06/07 completed Not Available Not Available Not Available hydrocort isone 0.5 % topical ointment APPLY A THIN LAYER TO THE AFFECTED AREA(S) BY TOPICAL ROUTE 2 TIMES PER DAY PRN 01/31/ 2023 active Not Available Not Available Not Avai lable methylpre dnisolone 4 mg tablets in a dose pack TAKE BY MOUTH DIRECTED ON INSIDE OF PACKAGE 12/13 completed Not Available Not Available Not Available Os-Christopher 500 + D3 500 mg-5 mcg (200 unit) tablet active Prescrib ed Elsewher e: Yes Loca tion: [facility] odify By: taz Garcia ncounter DateTime : 09/01/19 13 09:30:00 AM Not Available Not Available Not Available Asprin Ec Low Dose 81 mg tablet,de layed release Take 1 tablet every day by oral route. 07/09 completed Not Available Not Available Not Available rosuvasta tin 5 mg tablet TAKE 1 TABLET BY MOUTH ONCE DAILY 03/10 completed Not Available Not Available Not Available Norvasc 07/09 completed Not Available Not Available Not Available Vitamin D3 50 mcg (2,000 unit) capsule take 1 by Oral route once 2014 active Prescrib ed Elsewher e: Yes Loca tion: [facility] odify By: garcia Garcia ncounter DateTime : 10/02/19 15 11:30:00 AM Not Available Not Available Not Available Multi Vitamin 9 mg iron/15 mL oral liquid 2016 active Prescrib ed Elsewher e: Yes Loca tion: [facility] odify By: garcia Garcia ncounter DateTime : 12/23/19 17 11:30:00 AM Not Available Not Available Not Available Phesgo 1,200 mg-600 mg-30,000 unit/15 mL subcutane ous solution Inject by subcutan eous route. active Not Available Not Available No t Available Paxlovid 300 mg (150 mg x 2)-100 mg tablets in a dose pack TAKE 3 TABLETS TOGETHER (TWO 150 MG NIRMATRE LVIR TABLETS AND ONE 100 MG RITONAVI R TABLET) BY MOUTH TWICE DAILY FOR 5 DAYS. 06/07 completed Not Available Not Available Not Available Vitals Date Recorded Body height Body mass index (BMI) Body weight Provider Name and Address Organization Details Last Updated DateTime 12/13/2021 154.94 cm 25.9 kg/m2 18789.15 g Isabel Skelton [place] [facility] 12/13/2021 10:57:01 Date Recorded Systolic blood pressure Diastolic blood pressure Provider Name and Address Organization Details Last Updated DateTime 12/13/2021 126 mm[Hg] 76 mm[Hg] Yisel Sahu, [facility]- [address], [place], [address], [facility] 12/13/2021 11:07:42 Date Recorded Body height Body mass index (BMI) Body weight Systolic blood pressure Diastolic blood pressure Provider Name and Address Organization Details Last Updated DateTime 03/10/2022 154.94 cm 26.3 kg/m2 76623.06 g 127 mm[Hg] 75 mm[Hg] Clara Camejo [facility] 3 10:45:58 Date Recorded Body height Body mass index (BMI) Body weight Systolic blood pressure Diastolic blood pressure Provider Name and Address Organization Details Last Updated DateTime 07/09/2022 154.94 cm 26.1 kg/m2 85069.75 g 127 mm[Hg] 74 mm[Hg] Sangeeta [facility] 3 09:39:44 Date Recorded Body height Body mass index (BMI) Body weight Systolic blood pressure Diastolic blood pressure Provider Name and Address Organization Details Last Updated DateTime 06/08/2023 154.94 cm 25.9 kg/m2 12657.15 g 124 mm[Hg] 69 mm[Hg] Sangeeta [facility] 4 11:09:23 Social History Question Answer Notes LastModified by Organizat ion Details LastModified Time Tobacco Smoking Status Never Smoker Isabel romero, [facility] 12/13/2021 09:18:54 What Is Your Level Of Alcohol Consumption? None Information not available 12/13/2021 Are You Blind Or Do You Have Difficulty Seeing? No Information n ot available 03/10/2022 In The 14 Days Before Symptom Onset, Have You Had Close Contact With A Laboratory-confirm ed COVID-19 While That Case Was Ill? No Information n ot available 07/09/2022 In The 14 Days Before Symptom Onset, Have You Had Close Contact With A Person Who Is Under Investigation For COVID-19 While That Person Was Ill? No Information not available 07/09/2022 Have You Been To An Area Known To Be High Risk For COVID-19? No Information not available 07/09/2022 Are You Deaf Or Do You Have Serious Difficulty Hearing? No Information not available 03/10/2022 What Type Of Diet Are You Following? REGULAR Information n ot available 03/10/2022 Do You Use Any Illicit Or Recreational Drugs? No Information not available 12/13/2021 Has Tobacco Cessation Counseling Been Provided? No Information not available 12/13/2021 Do You Or Have You Ever Used Any Other Forms Of Tobacco Or Nicotine? No Information not available 12/13/2021 Sex: Unknown Functional Status Question Answer Note LastModified by Organizat ion Details LastModified Time Do you have difficulty walking or climbing stairs? No Information not available 03/10/2022 Are you able to walk? YESWOREST Information not available 03/10/2022 Are you able to care for yourself? Yes Information not available 03/10/2022 Do you have difficulty dressing or bathing? No Information not available 03/10/2022 What is your exercise level? Moderate Information not available 03/10/2022 Mental Status None recorded. Family History Relationship Description Onset Age of this Age Resolved Age Notes LastModified by Organization Details LastModified Time Brother Parkinson's disease Not available 2022 10:47:28 Father Hypertensive disorder Not available 2022 10:47:33 Mother Hypertensive disorder Not available 2022 10:47:38 Mother Diabetes mellitus Not available 2022 10:47:44 Medical History Condition Response Allergies (Food, seasonal, environmental ) N Other N Breast Cancer Y Drug/Latex Allergies/Reactions N Blood Transfusion N Dermatologic Disorders N Lung Disease N Defects or Inherited Disease N Breast Problem N Gestational Diabetes N Hematologic disorders N Anesthesia Complications N History of STI N Deep Vein Thrombosis N Polycystic ovary syndrome N Anxiety Disorder N Autoimmune disease N Arthritis N Infertility N Polyps N Acid Reflux (GERD) N History of abnormal pap N Cancer N Stroke N Varicosities N Neurologic/Epilepsy N Endometriosis N High Cholesterol N Headaches N Fibromyalgia N Kidney Disease N Heart Problems N Kidney or Bladder Problems N Thyroid Problems N GI Problems N Eating Disorder N Anemia N Art (IVF or FET) N Psychiatric Illness N Ovarian Cancer N Diabetes N Pulmonary (TB, Asthma) N Hepatitis/Liver Disease N No Past Medical History N Eczema N Urinary Tract Infection N Abuse/Domestic Violence N Asthma N Trauma/Violence N Depression/ depression N Heart Disease N Pre-Eclampsia N Hypertension Y Osteoporosis N Thrombophilias N Gynecological History Statement/Question Response If Post Menopausal, Age at Menopause Date of Last Mammogram 07/09/2021 Date of LMP 02/08/2006 Sexually Active? Y STIs/STDs N Menses Monthly N Age of first menstrual cycle 18 HPV Vaccine N Date of Last Pap Smear 02/25/2018 Sexual Problems? N Current Control Method Tubal Ligat ion LMP Unknown Obstetrics History GPAL:G 2 P 2 0 0 2 Type Value Full Term 2 Living 2 Total 2 Past Encounters Encounter ID Performer Location Encounter Start Date Encounter Closed Date Diagnosis/Indication Diagnosis SNOMED-CT Code Diagnosis ICD10 Code Diagnosis Note [id number] Yisel Sahu [facility] [address] [address] 12/13/2021 10:45:05 12/23/2021 15:18:26 Skin irritation 424576294 L30.9 Exam WNLAdvised use of coconut oil or solid crisco for dry skin especially in winter months.Rec ent Mammo was wnlMonthly SBE encouraged RTO x 1yr or prn Time spent in visit is a total of 15 mins with at least 50% of visit consisting of counseling and review of plan of care. [id number] [facility] [address] [address] 03/10/2022 10:36:27 03/10/2022 11:27:23 Mass of central portion of left breast [id number] 15134 N63.20 N64.53 L29.9 Today we agreed on updated diagnostic mammo with US of left breastConc erns of nipple itching, notable.Un certain of prognosis at this time.Once we have imaging we will determine next steps.Ques tion if biopsy of this area is required & breast specialist referral.A ll questions answeredSt at order placed to preferred location. Time spent in visit is a total of 26 mins with at least 50% of visit consisting of counseling and review of plan of care. [id number] [place] [address] [address] 07/09/2022 09:23:38 07/09/2022 10:10:56 Mass of central portion of left breast [id number] 64963 N63.20 N64.53 L29.9 Today we agreed on updated US of left breast as feel this area is now more prominent. Uncertain of prognosis at this time.Did not contact office after trial of ointment after a couple of weeks.We will refer to breast specialist for further consultati on/evaluat ion.All questions answered Time spent in visit is a total of 26 mins with at least 50% of visit consisting of counseling and review of plan of care. 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 She will use triamcinol one prn.She already follows VCG'sShe is not a cadidate for vaginal estrogen due to breast cancer hx/treatme nt.Likely anastrozol e adds to these drying postmenopa usal effects.Un derstandin g verbalized . Time spent in visit is a total of 22 mins with at least 50% of visit consisting of counseling and review of plan of care. Health Concerns Section Related Observation LastModified by Organization Detai ls LastModified Time None Recorded Concern Status LastModified by Organization Details LastModified Time None Recorded Advance Directives Directive None Recorded Payers Encounter Date Sequence Insurance Name Policy Number Policy Jiménez Covered Member ID Jiménez Member ID Guarantor Name 12/13/2021 1 [place] Zaida Flores [id number] Zaida B Flores 12/13/2021 2 [employer] [place] (MEDICARE SUPPLEMENT) Zaida B Flores [id number] Zaida B Flores 03/10/2022 1 [place] Zaida B Flores [id number] Zaida B Flores 03/10/2022 2 [employer] [place] (MEDICARE [place]PPLE[place]) Zaida B Flores [id number] Zaida B Flores 07/09/2022 1 [place] Zaida B Flores [id number] Zaida B Flores 07/09/2022 2 [employer] [place] (MEDICARE [place]PPLE[place]) Zaida B Flores [id number] Zaida B Flores 06/08/2023 1 [place] Zaida B Flores [id number] Zaida B Flores 06/08/2023 2 [employer] [place] (MEDICARE [place]PPLE[place]) Zaida B Flores [id number] Zaida B Flores Notes Date Note Type Note Provider Name and Address Organization Details Recorded Time 12/13/2021 text/html Breast ProblemsReported bypatient.Location:le ft; at the nipple (Ext nipple/areola feels irritated. Bought new sports bra-works out 5 days a week; thinks it might have rubbed the skin until it was irritated but wanted to have a breast exam to ensure no other issues. She does her own SBE's. Had recent mammogram 07/2021 WNL (Copy of report viewed)) Onset/Timin day; unrelated to menses (Postmenopausal) Duration:constant Quality:asymptomatic; no bloody discharge; no brown discharge; no milky discharge; no yellow-clear discharge; no yellow-green discharge; non-tender; improving; no mass Severity:mild Context:prior mammogram normal; performs breast self-examination; no breast implants; no family history of breast cancer; no history of breast cancer; no radiation treatment; no chemotherapy; no cancer; no previous biopsies; no miscarriages; recent MRI normal; lymph node status negative; postmenopausal; no current estrogen use Modifying Factors:no recent change in exercise habits; no recent changes in weight; no recent changes in diet; no recent changes in medication dosage of hormone replacement therapy Aggravating Factors:none Associated Symptoms:no fever; no chills; no breast reddening; no nipple discharge; no sore nipples; no nipple inversion; breasts feel normal; no breast swelling; no arm pain; no arm swelling; no chest pain; no malaise; no breast lump; no change in breast skin [address], [place], [address], [facility] 12/23/2021 09:31:08 03/10/2022 text/html Breast PainRepor angelina bypatient.Location:le ft; central (Nipple); at the nipple Onset/Timing:>1 month (>1yr) Duration:constant Quality:localized (Itches & sometimes feels irritated. Noticeably irritated on outside.) Severity:mild Context:post menopause Associated Symptoms:no fever; no chills; no skin redness; no nipple discharge; breasts not full, sore, unable to express milk; no breast swelling; no arm pain; no arm swelling; no chest pain; no malaise; no breast lump;sore nipples(left over) [address], [place], [address], [facility] 03/10/2022 11:15:56 07/09/2022 text/html Here today for continued nipple lump/non-healing skin on top nipple/itch.Has been using ointment triamcinolone and coconut oil.It has not cleared up this area.Did not reach out after 2wks of this trial as originally planned but presents now for this ongoing problem.Unsure, but feels it looks different. Nothing is helping. [address], [place], [address], [facility] 07/09/2022 10:04:45 06/08/2023 text/html Vaginal/Vulvar ProblemReported bypatient.Location:vu lva Onset/Timing:abrupt Duration:present for 1-7 days Quality:itching; irritation; dry Severity:moderate Context:not sexually active (monogamous); postmenopausal Alleviating Factors:none Aggravating Factors:OTC antifungal medication Associated Symptoms:no vaginal itching; no vaginal irritation; no vaginal pain; no vulvar swelling/erythema; no vulvar pain; no vulvar lesions; no pelvic pain; no dyspareunia; no dysuria; no fever; no abdominal pain;vulvar itching/irritation Yisel Sahu LAINA- [address], [place], [address], [facility] 06/08/2023 11:36:27 OBGyn Episode Ob Episode Information Episode Created Date Number of Fetuses Patient Bloodtype Patient rh Status Prepregnancy Weight lbs Domestic Partner Domestic Partner Phone Father Name Home Specialist Status 12/14/19 22 1 CLOSED Fetus Data First Name Last Name Admitted to NICU Weight (g) Sex Living Outcome Pediatric Complications Fetus ID Race Codes Race Delivery Type F Full Term [id number] Vaginal Delivery Bony Calculation Initial Bony Date Initial Exam Date Initial Exam Provider Initial Ultrasound Date Last Menstrual Period Date Ultra Sound Weeks Gestation 0 Eighteen To Twenty Week Bony Update Ultra Sound Date Fundal Height At Umbil Quickening Date Ultra Sound Latest Weeks Gestation Final Bony Confirmed By Final Bony Confirmed Date Final Bony Date Ultra Sound Latest Days Gestation 0 0 Menstrual History Last Menstrual Date Menses Monthly On Bcp Conception Prior Menses Frequency Hcg Plus Date Menarche Onset Age Delivery Information Delivery Date Delivery Type Labor Anesthesia Weeks Gestation Incision Type Labor Labor Length Hrs Delivered By Post Complications Tubal Sterilization Discharge Date Comments 3 Discharge Information Feeding Method Contraceptive Method Maternal HG B and HCT Levels Ob Episode Information Episode Created Date Number of Fetuses Patient Bloodtype Patient rh Status Prepregnancy Weight lbs Domestic Partner Domestic Partner Phone Father Name Home Specialist Status 12/14/19 22 1 CLOSED Fetus Data First Name Last Name Admitted to NICU Weight (g) Sex Living Outcome Pediatric Complications Fetus ID Race Codes Race Delivery Type F Full Term [id number] Vaginal Delivery Bony Calculation Initial Bony Date Initial Exam Date Initial Exam Provider Initial Ultrasound Date Last Menstrual Period Date Ultra Sound Weeks Gestation 0 Eighteen To Twenty Week Bony Update Ultra Sound Date Fundal Height At Umbil Quickening Date Ultra Sound Latest Weeks Gestation Final Bony Confirmed By Final Bony Confirmed Date Final Bony Date Ultra Sound Latest Days Gestation 0 0 Menstrual History Last Menstrual Date Menses Monthly On Bcp Conception Prior Menses Frequency Hcg Plus Date Menarche Onset Age Delivery Information Delivery Date Delivery Type Labor Anesthesia Weeks Gestation Incision Type Labor Labor Length Hrs Delivered By Post Complications Tubal Sterilization Discharge Date Comments 1 Discharge Information Feeding Method Contraceptive Method Maternal HG B and HCT Levels
--- OUTSIDE RECORDS SUMMARY | 2024-03-27 16:11 | XMS_ITS | Referral Summary ---
Author Organization [facility] [address] Address [address] [place] [address] Phone Care Team Providers Care Fitness Management Director Name Role Phone Raymon Juarez MD Primary Care Provider Allergies Active [...] 01/25/2017 Assessment & Plan (01/25/2017 4:10 PM TOOL GRINDER OPERATOR EXTERNAL): Feeling better overall. Still with right shoulder [...] pack. Assessment & Plan (01/25/2017 4:03 PM TOOL GRINDER OPERATOR EXTERNAL): Assessment & Plan (12/01/2016 11:22 AM CDT): [...] exam findings. Will repeat labs as below. Social History Tobacco Use Types Packs/Day Years [...] on file Legal Sex Female 12:32 AM TOOL GRINDER OPERATOR EXTERNAL Gender Identity Not on file Sexual Orientation Not on file Last Filed Vital Signs Vital Sign Reading [...] 10/18/2023 9:11 AM CDT Plan of Treatment Not on file Insurance MEDICARE [facility] MEDICARE [employer] [place] MEDICARE [employer] [place] Care Teams Fitness Management Director Relationship Specialty Start Date End Date Raymon Juarez MD [address] [facility] [address] [place] [address] PCP - General Family Medicine 11/05/16
--- OUTSIDE RECORDS SUMMARY | 2024-03-27 16:12 | XMS_ITS | Encounter Summary ---
Author Organization [facility] Health Address [address] [facility] [place] [address] Care Team Providers Care Wire Insulator Name Role Phone Raymon Juarez MD Primary Care Provider [phone] Encounter Details Date Type Department Care Team (Late Contact Info) Description 11/03/2023 [facility] Outpatient Visit [facility] [address] [address] Taj Childers MD [address] [place] [address] Social History Tobacco Use Types Packs/Day Years Used Date Smoking Tobacco: Never Smokeless Tobacco: Never Alcohol Use Standard Drinks/Week Comments Never 0 (1 standard drink = 0.6 oz pur e alcohol) PHQ-2 Answer Date Recorded Patient Health Questionnaire-2 Score 0 11/03/2023 Hunger Vital Sign Answer Date Recorded Within the past 12 months, y ou worried that your food would run out before you got the money to buy more. Never true 08/08/19 23 Within the past 12 months, t he food you bought just didn't last and you didn't have money to get more. Never true 08/07/2022 Sex and Gender Information Value Date Recorded Sex Assigned at Not on file Gender Identity Not on file Sexual Orientation Not on file documented as of this encounter Plan of Treatment Upcoming Encounters Date Type Department Care Team (Late Contact Info) Description 06/05/2024 1:20 PM CDT Documentation [facility] [address] [facility] [address] [place] [address] 06/05/2024 1:40 PM CDT Office Visit [facility] [address] [facility] [address] [place] [phone] Lori Rodríguez, CLAIMS ATTORNEY-FURNITURE SANDER [address] [facility] [address] [place] [address] 08/17/2024 10:00 AM CDT Appointment [facility] Breast Care [address] [place] [address] 08/17/2024 10:30 AM CDT Office Visit [facility] Medical [facility] - Surgery [address] [place] [address], [address] [phone] Valeria Chu MD [address] [place] [address] 10/05/2024 1:20 PM CDT Documentation [facility] Cancer Care [address] [place] [address] 10/05/2024 1:40 PM CDT Office Visit [facility] [address] [address] Taj Childers MD [address] [address] 02/19/2025 11:[address] PRODUCTION GENERAL MANAGER Office Visit [facility] - Rad/Onc [address] [place] [phone] Michaela Anderson MD [facility] [place] [phone] documented as of this encounter Visit Diagnoses Not on filedocumented in this encounter Care Teams Wire Insulator Relationship Specialty Start Date End Date Raymon Juarez MD [address] [place] [address] PCP - General Family Medicine 07/30/22 documented as of this encounter
--- OUTSIDE RECORDS SUMMARY | 2024-03-27 16:12 | XMS_ITS | Encounter Summary ---
Author Organization [facility] Health Address [address] [facility] [place] [address] Care Team Providers Care It Trainee Name Role Phone Raymon Juarez MD Primary Care Provider [phone] Encounter Details Date Type Department Care Team (Late Contact Info) Description 10/06/2023 [facility] Outpatient Visit [facility] [address] [address] Taj Childesr MD [address] [place] [address] Social History Tobacco Use Types Packs/Day Years Used Date Smoking Tobacco: Never Smokeless Tobacco: Never Alcohol Use Standard Drinks/Week Comments Never 0 (1 standard drink = 0.6 oz pur e alcohol) PHQ-2 Answer Date Recorded Patient Health Questionnaire-2 Score 0 10/06/2023 Hunger Vital Sign Answer Date Recorded Within [...] CDT Documentation [facility] [address] [facility] [address] [place] [address] 06/05/2024 1:40 PM CDT Office Visit [facility] Care [address] [facility] [address] [place] [phone] Lori Rodríguez, TECHNOLOGY MANAGER-COORDINATOR CARDIOPULMONARY SERVICES [address] [facility] [address] [place] [address] 08/17/2024 10:00 AM CDT Appointment [facility] Breast Care [address] [place] [address] 08/17/2024 10:30 AM CDT Office Visit [facility] Medical [facility] - Surgery [address] [place] [address], [address] [phone] Valeria Chu MD [address] [place] [address] 10/05/2024 1:20 PM CDT Documentation [facility] Care [address] [place] [address] 10/05/2024 1:40 PM CDT Office Visit [facility] [address] [address] Taj Childers MD [address] [address] 02/19/2025 11:00 AM TIEDOWN OPERATOR Office Visit [facility] - Rad/Onc [address] [place] [phone] Michaela [place] MD [facility] [place] [phone] documented as of this encounter Visit Diagnoses Not on filedocumented in this encounter Care Teams It Trainee Relationship Specialty Start Date End Date Raymon Juarez MD [address] [place] [address] PCP - General Family Medicine 07/30/22 documented as of this encounter
--- OUTSIDE RECORDS SUMMARY | 2024-03-27 16:12 | XMS_ITS ---
Author Organization [facility] Address [address] [place] [address] Care Team Providers Care Marketing Information Analyst Name Role Phone Raymon Juarez MD Primary Care Provider [phone] Active Problems Problem Noted Date Diagnosed Date High risk for chemotherapy-induced infectious co mplication 10/07/2022 Hepatic cyst 09/22/2022 Encounter for long-term (current) use of medicat ions 08/07/2022 Essential hypertension 08/07/2022 Mitral valve prolapse 08/07/2022 Malignant neoplasm of centra l portion of left breast in female, estrogen receptor positive 07/30/2022 Cancer Staging:Clinical stage from 08/06/2022:Stage IIIB(cT4b, cN0, cM0, G2, ER+, VA-, HER2+) - Signed by Valeria Chu MD on 09/20/2022 Pathologic stage from 09/20/2022:Stage IIIB(pT4b, pN0(i+)(sn), cM0, G2, ER+, VA-, HER2+) - Signed by Valeria Chu MD on 09/20/2022 Overview (01/22/2023): Breast Cancer Diagnosis/Pathology: Pathology- surgical pathology: infiltrating ductal carcinoma, grade 2, 16 mm and DCIS Direct extension into epidermis with focal cutaneous ulceration and perineural and lymphovascular space invasion including invasion of dermal lymphatics Negative margins, on of 2 sentinel lymph nodes with isolated tumor cells ER Positive, VA Negative , Her2 Positive on prior core biopsy CT and bone scan no metastatic disease, liver masses most consistent with cysts per MRI abdomen. Diagnosis: 07/30/22 Ultrasound-guided core needle biopsy left breast, of a an area of hypoechoic tissue and the sub areolar region directly posterior to the nipple, pathology: Invasive ductal carcinoma, grade 2, at least 12 mm in diameter on core needle biopsy, ER positive 91-100%, VA negative, Her2 positive 3+, Ki-67- 80 % Breast Cancer Treatment: Breast Surgery: 09/09/22 left partial mastectomy/lumpectomy (with removal of nipple areolar complex) and left axillary sentinel lymph node biopsy , Radiation Oncology: will plan referral after chemotherapy, patient aware radiation will be recommended Medical Oncology: adjuvant chemotherapy TCHP started 10/07/22 - aure prior to surgery and discussed option of neoadjuvant chemotherapy, but patient opted to have surgery first Current Oncology Plans BREAST ADJ (PERTUZUMAB/TRASTUZUMAB SUBCUTANEOUS DOCETAXEL CARBOPLATIN) Q21 DAYS --> (PERTUZUMAB/TRASTUZUMAB SUBCUTANEOUS) Q21 DAYS TO COMPLETE 1 YEAR* Plan Start Date:10/06/2022 Plan Provider:Taj Childers MD Linked Problems Malignant neoplasm of centra l portion of left breast in female, estrogen receptor positive (HCC) Treatment Medications CARBOplatin (Paraplatin) Inf usion (AUC Dosing)DOCEtaxel (Taxotere)DOCEtaxel (Taxotere) 250 mL ulfoupupeulzezwoth-yvxtiioiyzg-kehsxgsiukjar-zzxf (Phesgo) [phone] mg-mg-u/15 oSjplsacwxrp-ssaopqmugjm-qjkkwxokfcsiq-zzxf (Phesgo) [phone] mg-mg-u/10 mL Past Plans No past plan information found. Radiation Treatments * Plan Last Treated On Elapsed Days Fractions Treated Prescribed Fraction Dose Prescribed Total Dose Lt Breast Bst 04/09/2023 8 of 8 1,600 cGy DIBH L Breast 03/30/2023 28 5,040 cGy Reference Point Last Treated On Elapsed Days Session Dose Total Dose Lifetime Dose Tracking * Chemical Lifetime Dose Automatic Entry Manual Entr y Dose Length Product 1,245.23 mGy-cm 1,245.23 mGy-cm 0 mGy-cm
--- OUTSIDE RECORDS SUMMARY | 2024-03-27 16:12 | XMS_ITS | Clinical Summary ---
Author Organization [facility] Address [address] [facility] [address] [facility] [place] [address] Care Team Providers Care Farm Contractor Buyer Name Role Phone Raymon Juarez MD Primary Care Provider [phone] Source Comments [facility],non-owned Affiliates and Associated Physician Practices is amultiple site organization consisting of ambulatory clinics and hospital sitesin [place], [place], [place] and [place]. This disclosure is being madepursuant to the Care Everywhere program and may not contain all information available regarding this patient. Last updated 17.[facility] Allergies Active Allergy Reactions Criticality Noted Date Comments Cephalexin Other 07/30/2022 Hmg-Coa-R Inhibitors Other 07/30/2022 Medications * Be aware that medications may not be up to date on this document. Alwaysverify current medications with the patient. Medication Sig Dispensed Refills Start Date End Date Status amLODIPine (Norvasc) 10 MG tablet amlodipine 10 mg tablet TAKE 1 TABLET BY MOUTH ONCE DAILY Active Nutritional Supplements (ENSURE PLUS PO) Take by mouth once daily Active prochlorperazine (Compazine) 10 MG tabletIndications: Malignant neoplasm of central portion of left breast in female, estrogen receptor positive (HCC) Take 1 (one) tablet by mouth every 6 hours as needed for Nausea/Vomiting 30 tablet 6 09/30/2022 Active Additional Information Patient not taking.Reported on 07/14/2023 ondansetron (Zofran) 8 MG tabletIndications: Malignant neoplasm of central portion of left breast in female, estrogen receptor positive (HCC) Take 1 (one) tablet by mouth every 8 hours as needed for Nausea/Vomiting 20 tablet 6 09/30/2022 Active Additional Information Patient not taking.Reported on 07/14/2023 Biotin 5000 MCG Active acetaminophen (Tylenol) 500 MG tablet Take 1 (one) tablet by mouth every 4 hours as needed for Fever or Pain Maximum allowable Acetaminophen amount = 4 Grams (4000 mg) / 24 hours. Active Cholecalciferol (Vitamin D-3) 125 MCG (5000 UT) Take by mouth once daily Active triamcinolone acetonide (Kenalog) 0.5 % ointment APPLY A THIN LAYER OF OINTMENT TOPICALLY TO THE AFFECTED AREA(S) TWICE DAILY NEEDED 06/09/2023 Active anastrozole (Arimidex) 1 MG tablet Take 1 (one) tablet by mouth once daily -90 day supply 90 tablet 4 02/03/2024 Active cyclobenzaprine (Flexeril) 5 MG tabletIndications: Malignant neoplasm of central portion of left breast in female, estrogen receptor positive (HCC),Osteopenia of multiple sites,Normocytic anemia,Muscle spasm Take 1 (one) tablet by mouth 3 times daily as needed 60 tablet 1 02/03/2024 Active Active Problems Problem Noted Date Diagnosed Date High risk for chemotherapy-induced infectious co mplication 10/07/2022 Hepatic cyst 09/22/2022 Encounter for long-term (current) use of medicat ions 08/07/2022 Essential hypertension 08/07/2022 Mitral valve prolapse 08/07/2022 Malignant neoplasm of centra l portion of left breast in female, estrogen receptor positive 07/30/2022 Cancer Staging:Clinical stage from 08/06/2022:Stage IIIB(cT4b, cN0, cM0, G2, ER+, MI-, HER2+) - Signed by Valeria Chu MD on 09/20/2022 Pathologic stage from 09/20/2022:Stage IIIB(pT4b, pN0(i+)(sn), cM0, G2, ER+, MI-, HER2+) - Signed by Valeria Chu MD on 09/20/2022 Overview (01/22/2023): Breast Cancer Diagnosis/Pathology: Pathology- surgical pathology: infiltrating ductal carcinoma, grade 2, 16 mm and DCIS Direct extension into epidermis with focal cutaneous ulceration and perineural and lymphovascular space invasion including invasion of dermal lymphatics Negative margins, on of 2 sentinel lymph nodes with isolated tumor cells ER Positive, MI Negative , Her2 Positive on prior core [...] on core needle biopsy, ER positive 91-100%, MI negative, Her2 positive 3+, Ki-67- 80 % Breast Cancer Treatment: Breast Surgery: 09/09/22 left partial mastectomy/lumpectomy (with removal of nipple areolar complex) and left axillary sentinel lymph node biopsy , Radiation Oncology: will plan referral after chemotherapy, patient aware radiation will be recommended Medical Oncology: adjuvant chemotherapy TCHP started 10/07/22 - saw prior to surgery and discussed option of neoadjuvant chemotherapy, but patient opted to have surgery first Encounters Date Type Department Care Team Description 03/24/2024 1:20 PM ASTROCHEMIST Office Visit [facility] - [facility] [address] [facility] [address] [place] [address] Belen Early MD Arrived 03/24/2024 Travel 02/21/2024 10:30 AM ASTROCHEMIST - 03/24/2024 11:59 PM ASTROCHEMIST Hospital Encounter [facility] - Radiation Oncology [address] [place] [id number] Michaela Anderson MD Discharge Disposition: Home or Self Care 02/21/2024 10:30 AM ASTROCHEMIST Office Visit [facility] - Rad/Onc [address] [place] [address] Michaela Anderson MD Malignant neoplasm of central portion of left breast in female, estrogen receptor positive (HCC) (Primary Dx) 02/21/2024 Travel 02/07/2024 Telephone [facility] [address] [facility] [address] [place] [address] Taj Childers MD General 02/03/2024 1:20 PM ASTROCHEMIST Office Visit [facility] [address] [facility] [address] [place] [address] Taj Childers MD Malignant neoplasm of central portion of left breast in female, estrogen receptor positive (HCC) (Primary Dx); Osteopenia of multiple sites; Normocytic anemia; Muscle spasm; Anti-cardiolipin antibody positive 01/28/2024 Travel from Last 3 Months Immunizations Name Administration Dates Next Due COVID PFIZER BIVALENT 12Y+ 30mcg/0.3ML Family History Medical History Relation Name Comments Other Maternal Cousin 1 GI cancer Cancer - Breast Maternal Cousin 2 Relation Name Status Comments Maternal Cousin 1 Alive Maternal Cousin 2 Alive Social History Tobacco Use Types Packs/Day Years Used Date Smoking Tobacco: Never Smokeless Tobacco: Never Tobacco Cessation:Counseling Given: Not Answered Alcohol Use Standard Drinks/Week Comments Never 0 (1 standard drink = 0.6 oz pur e alcohol) PHQ-2 Answer Date Recorded Patient Health Questionnaire-2 Score 0 02/21/2024 Hunger Vital Sign Answer Date Recorded Within [...] Sign Reading Time Taken Comments Blood Pressure 120/70 03/24/2024 2:34 PM ASTROCHEMIST Pulse 90 02/21/2024 10:39 AM ASTROCHEMIST Temperature 36.9 C (98.4 F) 02/21/2024 10:39 AM ASTROCHEMIST Respiratory Rate 18 02/21/2024 10:39 AM ASTROCHEMIST Oxygen Saturation 97% 02/21/2024 10:39 AM ASTROCHEMIST Inhaled Oxygen Concentration - - Weight 59.9 kg (132 lb) 03/24/2024 2:34 PM ASTROCHEMIST Height 157.5 cm (5' 2 ) 03/24/2024 2:34 PM ASTROCHEMIST Body Mass Index 24.14 03/24/2024 2:34 PM ASTROCHEMIST Plan of Treatment Upcoming Encounters Date Type Department Care Team (Late st Contact Info) Description 06/05/2024 1:20 PM CDT Documentation [facility] [address] [place] [address] [place] [phone] 06/05/2024 1:40 PM CDT Office Visit [facility] [address] [place] [address] [place] [phone] Marcos Lori E, PHLEBOTOMY INSTRUCTOR-EEG TECHNICIAN [address] [facility] [address] [place] [address] 08/17/2024 10:00 AM CDT Appointment [facility] [address] [place] [address] [place] [address] 08/17/2024 10:30 AM CDT Office Visit [facility] - Surgery [address] [place] [address], [facility] [address] [place] [phone] Valeria Chu MD [address] [place] [address] 10/05/2024 1:20 PM CDT Documentation [facility] [address] [place] [address] 10/05/2024 1:40 PM CDT Office Visit [facility] [address] [address] [place] [address] [place] [address] 02/19/2025 11:00 AM ASTROCHEMIST Office Visit [facility] - Rad/Onc [address] [place] [phone] Michaela Anderson MD [facility] [place] [phone] Health Maintenance Due Date Last Done Comments COLOGUARD (AGES 45-75) - COLON CA SCREENING 1950 COLON MONITORING 1950 COLONOSCOPY - COLON CA SCREENING 1950 CT COLONOGRAPHY - COLON CA SCREENING 1950 Colorectal Cancer Screening 1950 FIT - COLON CA SCREENING 1950 FLEX SIG - COLON CA SCREENING 1950 MEDICARE AWV 12 MONTHS 1950 HEPATITIS C SCREENING 05/26/1968 DTAP/TDAP/TD VACCINES (1 - Tdap) 1969 PNEUMOCOCCAL VACCINE 50+ (1 of 1 - PCV) 2000 ZOSTER VACCINE (1 of 2) 2000 Respiratory Syncytial Virus (RSV) Vaccine Pt: or over 60 yrs (1 - Risk 60-74 years 1-dose series) 2010 COVID-19 VACCINE (2023- season) 2023 12/07/2022, 01/08/2022, 06/07/2021, Additional history exists INFLUENZA VACCINE (#1) 2023 MAMMOGRAM 08/16/2025 08/17/2023, 07/0 07/2022, 08/13/2022, Additional history exists LIPID TESTING 08/24/2028 08/25/2023 BONE DENSITY TESTING Completed 02/10/2023 DEPRESSION SCREENING Completed 02/21/2024, 02/10/2023, 08/07/2022 HEPATITIS B VACCINE Aged Out No longe r eligible based on patient's age to complete this topic HIB VACCINE Aged Out No longer eligi ble based on patient's age to complete this topic HPV VACCINE Aged Out No longer eligi ble based on patient's age to complete this topic MENINGOCOCCAL (Group B) VACCINE Aged Out No longer eligible based on patient's age to complete this topic MENINGOCOCCAL VACCINE Aged Out No shorty tatyana eligible based on patient's age to complete this topic Medical Devices Implanted Type Area Mechanical Design Drafter Device Identifier Shelf Expiration Date Model / Serial / Lot Port Implinfn Powerport Mri Argd Chrnflx Implanted:Qty: 1 on 10/02/2022 by Valeria Chu MD at [facility] Right: Chest [employer] Peripheral Vascular 09/08/2023 [id number] / / [id number] Procedures Procedure Name Priority Date/Time Associated Diagnosis Comments CARDIOLIPIN ANTIBODY IGG/IGM PANEL Routine 02/03/2024 2:52 PM ASTROCHEMIST PHOSPHORUS BLOOD Routine 02/03/2024 2:52 PM ASTROCHEMIST MAGNESIUM BLOOD Routine 02/03/2024 2:52 PM ASTROCHEMIST C-REACTIVE PROTEIN Routine 02/03/2024 2: 52 PM ASTROCHEMIST IMMUNOGLOBULINS IGG/IGM/IGA PANEL Routine 02/03/2024 2:52 PM ASTROCHEMIST Malignant neoplasm of central portion of left breast in female, estrogen receptor positive (HCC) Osteopenia of multiple sites Normocytic anemia Muscle spasm VITAMIN D 25-HYDROXY Routine 02/03/2024 2:52 PM ASTROCHEMIST Malignant neoplasm of central portion of left breast in female, estrogen receptor positive (HCC) Osteopenia of multiple sites Normocytic anemia Muscle spasm COMPREHENSIVE METABOLIC PANEL Routine 02/03/2024 2:52 PM ASTROCHEMIST Malignant neoplasm of central portion of left breast in female, estrogen receptor positive (HCC) Osteopenia of multiple sites Normocytic anemia Muscle spasm CBC W AUTO DIFFERENTIAL (CANCER CARE) Routine 02/03/2024 1:16 PM ASTROCHEMIST Malignant neoplasm of central portion of left breast in female, estrogen receptor positive (HCC) Normocytic anemia LIPID PROFILE Routine 08/25/2023 10:19 AM CDT Malignant neoplasm of central portion of left breast in female, estrogen receptor positive (HCC) Osteopenia of multiple sites Encounter for long-term (current) use of medications Normocytic anemia Aromatase inhibitor use MAMMO BILAT DIAGNOSTIC W KENYA Routine 08/17/2023 10:26 AM CDT Malignant neoplasm of central portion of left breast in female, estrogen receptor positive (HCC) DEXA BONE DENSITY AXIAL SKELETON Routine 02/10/2023 11:11 AM ASTROCHEMIST Malignant neoplasm of central portion of left breast in female, estrogen receptor positive (HCC) Anemia, unspecified type Essential hypertension Asymptomatic menopausal state from Last 3 Months or Most Recently Relevant to Health Maintenance Results * (ABNORMAL) CARDIOLIPIN ANTIBODY IGG/IGM PANEL (02/03/2024 2:52 PM ASTROCHEMIST) [facility] Cardiolipin Antibody IgG <9 0 - 14 GPL U/mL [facility] INSURANCE BILL Comment: Negative: <15 Indeterminate: 15 - 20 Low-Med Positive: >20 - 80 High Positive: >80 Cardiolipin Antibody IgM 26(H) 0 - 12 MPL U/mL [facility] INSURANCE BILL Comment: Negative: <13 Indeterminate: 13 - 20 Low-Med Positive: >20 - 80 High Positive: >80 02/03/2024 2:52 PM ASTROCHEMIST 02/03/2024 Comment:Blood Release to [facility] INSURANCE BILL - 02/04/2024 3:07 PM ASTROCHEMIST Performed at: [address] [place] [address] [place] [id number] Ethylbenzene Oxidizer: Blair Michael PhD, Phone: [phone] Taj Childers MD LAB - SEROLOGY ORDER TALI [facility] INSURANCE BILL [address] [place] [address] * C-REACTIVE PROTEIN (02/03/2024 2:52 PM ASTROCHEMIST) [facility] C-Reactive Protein 0.23 <=0.50 mg/dL [facility] INSURANCE BILL 02/03/2024 2:52 PM ASTROCHEMIST 02/03/2024 Comment:Blood Release to [facility] INSURANCE BILL - 02/03/2024 9:06 PM ASTROCHEMIST Performed at: [address] [place] [address] [place] [id number] Ethylbenzene Oxidizer: Michael Baxter MD, Phone: [phone] Taj Childers MD LAB - CHEMISTRY TREMAINE FIORE Performing Organization Address City/[facility]/ZIP Co de Phone Number [facility] INSURANCE BILL [address] [place] [address] * VITAMIN D 25-HYDROXY (02/03/2024 2:52 PM ASTROCHEMIST) [facility] Vitamin D, 25 Hydroxy 31.7 30 - 80 ng/mL [facility] INSURANCE BILL Comment: Vitamin D Status: Deficiency <20 ng/mL Insufficiency 20-30 ng/mL Sufficiency 30-100 ng/mL Toxicity >100 ng/mL Blood BLOOD SPECIMEN / Unknown 02/03/2024 2:52 PM ASTROCHEMIST 02/03/2024 Comment:Blood Release to [facility] INSURANCE BILL - 02/03/2024 11:06 PM ASTROCHEMIST Performed at: [address] [place] [id number] Ethylbenzene Oxidizer: Michael Baxter MD, Phone: [phone] Taj Childers MD LAB - CHEMISTRY TREMAINE FIORE [facility] INSURANCE BILL [address] [place] [address] * (ABNORMAL) COMPREHENSIVE METABOLIC PANEL (02/03/2024 2:52 PM ASTROCHEMIST) Pathologist [facility] Glucose 86 70 - 99 mg/dL [facility] INSURANCE BILL BUN 21 7 - 26 mg/dL [facility] INSURANCE BILL Creatinine 0.92 0.57 - 1.11 mg/dL [facility] INSURANCE BILL eGFR by CKD-EPI 66(L) >=90 mL/min/1.7 3 m2 [facility] INSURANCE BILL Sodium 140 136 - 145 mmol/L [facility] INSURANCE BILL Potassium 3.9 3.5 - 5.1 mmol/L [facility] INSURANCE BILL Chloride 107 98 - 107 mmol/L [facility] INSURANCE BILL CO2 27 22 - 29 mmol/L [facility] INSURANCE BILL Calcium 9.3 8.4 - 10.4 mg/dL [facility] INSURANCE BILL Protein Total 6.9 6.4 - 8.3 gm/dL [facility] INSURANCE BILL Albumin 3.7 3.4 - 5.0 gm/dL [facility] INSURANCE BILL Bilirubin Total 0.4 0.2 - 1.2 mg/dL [facility] INSURANCE BILL Alkaline Phosphatase 41 40 - 150 U/L [facility] INSURANCE BILL AST 15 5 - 34 U/L [facility] INSURANCE BILL ALT 18 0 - 55 U/L [facility] INSURANCE BILL Blood BLOOD SPECIMEN / Unknown 02/03/2024 2:52 PM ASTROCHEMIST 02/03/2024 Comment:Blood Release to pat i Narrative [facility] INSURANCE BILL - 02/03/2024 9:06 PM ASTROCHEMIST Performed at: [address] [place] [id number] Ethylbenzene Oxidizer: Michael Baxter MD, Phone: [phone] Taj Childers MD LAB - CHEMISTRY TREMAINE FIORE Performing Organization Address City/[facility] Co de Phone Number [facility] INSURANCE BILL [address] [place] [address] * PHOSPHORUS BLOOD (02/03/2024 2:52 PM ASTROCHEMIST) Phosphorus 3.2 3.0 - 4.3 mg/dL [facility] INSURANCE BILL 02/03/2024 2:52 PM ASTROCHEMIST 02/03/2024 Comment:Blood Release to pa ti Narrative [facility] INSURANCE BILL - 02/04/2024 11:08 AM ASTROCHEMIST Performed at: [address] [id number] Ethylbenzene Oxidizer: Blair Michael PhD, Phone: [phone] Taj Childers MD LAB - CHEMISTRY TREMAINE FIORE Performing Organization Address [facility] Co de Phone Number [facility] INSURANCE BILL [address] [place] [address] * MAGNESIUM BLOOD (02/03/2024 2:52 PM ASTROCHEMIST) Magnesium 2.3 1.6 - 2.6 mg/dL [facility] INSURANCE BILL 02/03/2024 2:52 PM ASTROCHEMIST 02/03/2024 Comment:Blood Release to pat i Narrative [facility] INSURANCE BILL - 02/03/2024 9:06 PM ASTROCHEMIST Performed at: [address] [place] [id number] Ethylbenzene Oxidizer: Mcihael Baxter MD, Phone: [phone] Taj Childers MD LAB - CHEMISTRY TREMAINE FIORE [facility] INSURANCE BILL [address] [place] [address] * IMMUNOGLOBULINS IGG/IGM/IGA PANEL (02/03/2024 2:52 PM ASTROCHEMIST) [facility] IgG Quantitative 1,108 586 - 1,602 mg/dL [facility] INSURANCE BILL IgA Quantitative 169 64 - 422 mg/dL [facility] INSURANCE BILL IgM Quantitative 136 26 - 217 mg/dL [facility] INSURANCE BILL Blood BLOOD SPECIMEN / Unknown 02/03/2024 2:52 PM ASTROCHEMIST 02/03/2024 Comment:Blood Release to [facility] INSURANCE BILL - 02/04/2024 7:07 AM ASTROCHEMIST Performed at: [address] [id number] Ethylbenzene Oxidizer: Blair Michael PhD, Phone: [phone] Taj Childers MD LAB - CHEMISTRY TREMAINE FIORE Performing Organization Address City/[facility]/ZIP Co de Phone Number [facility] INSURANCE BILL [address] [place] [address] * (ABNORMAL) CBC W AUTO DIFFERENTIAL (CANCER CARE) (02/03/2024 1:16 PM ASTROCHEMIST) [facility] WBC 7.3 4.4 - 10.7 x10E9/L 02/03/2024 1:23 PM ASTROCHEMIST [facility] Neutrophils % 73.6(H) 44.0 - 73.0 % 02/03/2024 1:23 PM ASTROCHEMIST [facility] Lymphocytes % 17.8(L) 20.0 - 43.0 % 02/03/2024 1:23 PM ASTROCHEMIST [facility] Monocytes % 7.6 5.0 - 13.0 % 02/03/2024 1:23 PM ASTROCHEMIST [facility] Eosinophils % 0.0 0.0 - 6.0 % 02/03/2024 1:23 PM ASTROCHEMIST [facility] Basophils % 0.3 0.0 - 2.0 % 02/03/2024 1:23 PM ASTROCHEMIST [facility] Immature Granulocytes 0.7 <=1 % 02/03/2024 1:23 PM ASTROCHEMIST [facility] Neutrophil Absolute 5.35 2.01 - 7.14 x10E9/L 02/03/2024 1:23 PM [facility] Lymphocytes Absolute 1.29 1.07 - 3.94 x10E9/L 02/03/2024 1:23 PM [facility] Monocytes Absolute 0.55 0.26 - 1.07 x10E9/L 02/03/2024 1:23 PM [facility] Eosinophils Absolute 0.00 0 - 0.47 x10E9/L 02/03/2024 1:23 PM [facility] Basophils Absolute 0.02 0 - 0.08 x10E9/L 02/03/2024 1:23 PM [facility] RBC 3.74(L) 3.80 - 5.20 x10E12/L 02/03/2024 1:23 PM [facility] Hemoglobin 11.7(L) 12.0 - 15.6 gm/dL 02/03/2024 1:23 PM [facility] Hematocrit 34.3(L) 35.9 - 45.5 % 02/03/2024 1:23 PM [facility] MCV 91.7 80.7 - 98.3 fl 02/03/2024 1:23 PM [facility] MCH 31.3 26.7 - 34.0 pg 02/03/2024 1:23 PM [facility] MCHC 34.1 30.8 - 35.9 gm/dL 02/03/2024 1:23 PM [facility] RDW-CV 16.0(H) 12.1 - 14.9 % 02/03/2024 1:23 PM [facility] Platelet Count 250 153 - 416 x10E9/L 02/03/2024 1:23 PM [facility] MPV 8.5(L) 9.4 - 12.9 fl 02/03/2024 1:23 PM [facility] NRBC 0.0 <=0 /100 WBC 02/03/2024 1:23 PM [facility] Blood BLOOD SPECIMEN / Unknown 02/03/2024 1:16 PM ASTROCHEMIST 02/03/2024 1:16 PM ASTROCHEMIST Taj Childers MD LAB - HEMATOLOGY ORD ERABLES [facility] [address] [address], [facility] * (ABNORMAL) LIPID PROFILE (LIPID PANEL) (08/25/2023 10:19 AM CDT) Cholesterol 199 <200 mg/dL [facility] INSURANCE BILL Triglycerides 75 <150 mg/dL [facility] INSURANCE BILL HDL Cholesterol 48 >40 mg/dL [facility] INSURANCE BILL VLDL Calculated 15 <=30 mg/dL [facility] INSURANCE BILL LDL Calculated 136(H) <130 mg/dL [facility] INSURANCE BILL Blood BLOOD SPECIMEN / Unknown 08/25/2023 10:19 AM CDT 08/25/2023 Narrative Resulting Agency Comment Lab Testing performed at: [facility] [address] [facility] [id number] Lori Rodríguez APRN-EEG TECHNICIAN LAB - CHEM ISTRY ORDERABLES [facility] INSURANCE BILL [address] [place] [address] * MAMMO BILAT DIAGNOSTIC W KENYA (08/17/2023 10:26 AM CDT) Anatomical Region Laterality Modality Breast Bilateral Mammography 08/17/2023 10:3 4 AM CDT Impressions 08/17/2023 10:38 AM CDT : There are findings of left breast conservation therapy are noted. To the extent of visualization, no new suspicious abnormality is identified within either breast. OVERALL FINAL ASSESSMENT: BI-RADS Category 2: Benign. Annual diagnostic mammography is recommended. > Interpreting Provider: Criselda Mesa MD on 08/17/2023 10:38 AM Narrative 08/17/2023 10:38 AM CDT EXAMINATION: BILATERAL DIGITAL DIAGNOSTIC MAMMOGRAM AND BILATERAL BREAST TOMOSYNTHESIS HISTORY: Personal history of left breast cancer in 2022, treated with left breast conserving therapy. COMPARISON: Serial examinations dating back to 2022 TECHNIQUE: BILATERAL digital breast tomosynthesis (DBT) and synthetic 2D digital mammogram images were obtained (bilateral craniocaudal and mediolateral oblique projections) including computer aided detection (CAD.) BREAST PARENCHYMAL COMPOSITION: Category C: The breasts are heterogeneously dense which may obscure small masses. MAMMOGRAM FINDINGS: Imaging is suboptimal due to patient's exquisite tenderness. There is inadequate compression and motion artifact. Findings compatible with prior left breast conservation therapy are noted. Grossly, no new suspicious abnormality is identified within either breast. Valeria Chu MD MAMMO ORDERABLES * DEXA BONE DENSITY AXIAL SKELETON (02/10/2023 11:11 AM ASTROCHEMIST) Anatomical Region Laterality Modality Nuclear Medicine 02/10/2023 11:2 2 AM ASTROCHEMIST Impressions 02/10/2023 11:22 AM ASTROCHEMIST IMPRESSION: WHO category: Osteopenia WORLD HEALTH ORGANIZATION DEFINITIONS NORMAL= T-Score at or above -1.0 SD OSTEOPENIA = T-Score between -1 and -2.5 SD OSTEOPOROSIS = T-Score at or below -2.5 SD > Interpreting Provider: Dharmesh Harris DO on 02/10/2023 11:22 AM Narrative 02/10/2023 11:22 AM ASTROCHEMIST PROCEDURE: DEXA BONE DENSITY AXIAL SKELETON DATE/TIME OF EXAM: 02/10/2023 11:11 AM CLINICAL INFORMATION: None relevant/not provided if blank. Indication: C50.112: Malignant neoplasm of central portion of left female breast (CMS-HCC) Z17.0: Estrogen receptor positive status (ER+) D64.9: Anemia, unspecified I10: Essential (primary) hypertension Z78.0: Asymptomatic menopausal state COMPARISON: None. INDICATION: 72-year-old for osteoporosis screening. FINDINGS: The mean bone mineral content of the lumbar spine is 1.055 g/cm2 and T-score is -1.0. The mean bone mineral content of the left femoral neck is 0.824 g/cm2 and T-score is -1.5. The mean bone mineral content of the left total hip is 0.802 g/cm2 and T-score is -1.6. The mean bone mineral content of the right femoral neck is 0.819 g/cm2 and T-score is -1.6. The mean bone mineral content of the right total hip is 0.786 g/cm2 and T-score is -1.8. FRAX 10 year fracture risk Major osteoporotic fracture: 4.9% Hip fracture: 0.9% Procedure Note Dharmesh Harris DO - 03/02/2023 PROCEDURE: DEXA BONE DENSITY AXIAL SKELETON DATE/TIME OF EXAM: 02/10/2023 11:11 AM CLINICAL INFORMATION: None relevant/not provided if blank. Indication: C50.112: Malignant neoplasm of central portion of leftfemale breast ([facility]) Z17.0: Estrogen receptor positive status (ER+) D64.9: Anemia, unspecified I10: Essential (primary) hypertension Z78.0: Asymptomatic menopausal state COMPARISON: None. INDICATION: 72-year-old for osteoporosis screening. FINDINGS: The mean bone mineral content of the lumbar spine is 1.055 g/cm2 and T-score is -1.0. The mean bone mineral content of the left femoral neck is 0.824 g/cm2and T-score is -1.5. The mean bone mineral content of the left total hip is 0.802 g/cm2 and T-score is -1.6. The mean bone mineral content of the right femoral neck is 0.819 g/cm2and T-score is -1.6. The mean bone mineral content of the right total hip is 0.786 g/cm2 and T-score is -1.8. FRAX 10 year fracture risk Major osteoporotic fracture: 4.9% Hip fracture: 0.9% IMPRESSION: WHO category: Osteopenia WORLD HEALTH ORGANIZATION DEFINITIONS NORMAL= T-Score at or above -1.0 SD OSTEOPENIA = T-Score between -1 and -2.5 SD OSTEOPOROSIS = T-Score at or below -2.5 SD > Interpreting Provider: Dharmesh Harris DO on 02/10/2023 11:22 AM Taj Childers MD DEXA ORDERABLES from Last 3 Months or Most Recently Relevant to Health Maintenance Advance Directives Documents on File Type Date Recorded Patient Nuclear Unit Operator Expl anation Adv Directive/Living Will/POA 09/11/2022 3:53 PM Care Teams Farm Contractor Buyer Relationship Specialty Start Date End Date Raymon Juarez MD [address] [employer] [address] [place] [address] PCP - General Family Medicine 07/30/22
--- OUTSIDE RECORDS SUMMARY | 2024-03-27 16:12 | XMS_ITS | Referral Summary ---
Author Organization [facility] Address [address] [place] [address] Care Team Providers Care Orthotist Prosthetist Name Role Phone Raymon Juarez MD Primary Care Provider [phone] Source Comments [facility],non-owned Affiliates and Associated Physician Practices is amultiple site organization consisting of ambulatory clinics and hospital sitesin [place], [place], [place] and [place]. This disclosure is being madepursuant to the Care Everywhere program and may not contain all information available regarding this patient. Last updated 17.[facility] Encounters Date Type Department Care Team Description 03/24/2024 Travel 03/24/2024 1:20 PM RACE STEWARD Office Visit [facility] - SENIOR ELECTRICAL CONTROLS ENGINEER [address] [facility] [address] [place] [address] Belen Early MD Arrived 02/21/2024 10:30 AM RACE STEWARD - 03/24/2024 11:59 PM RACE STEWARD Hospital Encounter [facility] - Radiation Oncology [address] [place] [address] Michaela Anderson MD Discharge Disposition: Home or Self Care 02/21/2024 Travel 02/21/2024 10:30 AM RACE STEWARD Office Visit [facility] - Rad/Onc [address] [place] [phone] Michaela Anderson MD Malignant neoplasm of central portion of left breast in female, estrogen receptor positive (HCC) (Primary Dx) 02/07/[address] [address] Taj Childers MD General 02/03/2024 1:20 PM RACE STEWARD Office Visit [address] [address] Taj Childers MD Malignant neoplasm of central portion of left breast in female, estrogen receptor positive (HCC) (Primary Dx); Osteopenia of multiple sites; Normocytic anemia; Muscle spasm; Anti-cardiolipin antibody positive 01/28/2024 Travel from Last 3 Months Allergies Active Allergy Reactions Criticality Noted Date [...] from 08/06/2022:Stage IIIB(cT4b, cN0, cM0, G2, ER+, IN-, HER2+) - Signed by Valeria Chu MD on 09/20/2022 Pathologic stage from 09/20/2022:Stage IIIB(pT4b, pN0(i+)(sn), cM0, G2, ER+, IN-, HER2+) - Signed by Valeria Chu MD on 09/20/2022 Overview (01/22/2023): Breast Cancer Diagnosis/Pathology: Pathology- surgical pathology: infiltrating ductal carcinoma, grade 2, 16 mm and DCIS Direct extension into epidermis with focal cutaneous ulceration and perineural and lymphovascular space invasion including invasion of dermal lymphatics Negative margins, on of 2 sentinel lymph nodes with isolated tumor cells ER Positive, IN Negative , Her2 Positive on prior core [...] on core needle biopsy, ER positive 91-100%, IN negative, Her2 positive 3+, Ki-67- 80 % [...] but patient opted to have surgery first Immunizations Name Administration Dates Next Due COVID PFIZER BIVALENT 12Y+ 30mcg/0.3ML Social History Tobacco Use Types Packs/Day Years [...] Comments Blood Pressure 120/70 03/24/2024 2:34 PM RACE STEWARD Pulse 90 02/21/2024 10:39 AM RACE STEWARD Temperature 36.9 C (98.4 F) 02/21/2024 10:39 AM RACE STEWARD Respiratory Rate 18 02/21/2024 10:39 AM RACE STEWARD Oxygen Saturation 97% 02/21/2024 10:39 AM RACE STEWARD Inhaled Oxygen Concentration - - Weight 59.9 kg (132 lb) 03/24/2024 2:34 PM RACE STEWARD Height 157.5 cm (5' 2 ) 03/24/2024 2:34 PM RACE STEWARD Body Mass Index 24.14 03/24/2024 2:34 PM RACE STEWARD Plan of Treatment Upcoming Encounters Date Type Department Care Team (Late st Contact Info) Description 06/05/2024 1:20 PM CDT Documentation [address] [address] 06/05/2024 1:40 PM CDT Office Visit [facility] [address] [facility] [address] [place] [phone] Lori Rodríguez APRN-DIRECTOR HOUSEKEEPING [address] [facility] [address] [place] [address] 08/17/2024 10:00 AM CDT Appointment [facility] Breast [facility] [address] [place] [address] [address] [place] [address] 08/17/2024 10:30 AM CDT Office Visit [facility] Medical [facility] - Surgery [address] [place] [address], [facility] [address] [place] [phone] Valeria Chu MD [facility] [address] [address] 10/05/2024 1:20 PM CDT Documentation [facility] Cancer [facility] [address] [address] 10/05/2024 1:40 PM CDT Office Visit [facility] Cancer [facility] [address] [place] [address] Taj Childers MD [address] [address] 02/19/2025 11:00 AM RACE STEWARD Office Visit [facility] - Rad/Onc [address] [place] [phone] Michaela Anderson MD [facility] [place] [phone] Medical Devices Implanted Type Area Cancer Program Director Device Identifier Shelf Expiration Date Model / Serial / Lot Port Implinfn Powerport Mri Argd Chrnflx Implanted:Qty: 1 on 10/02/2022 by Valeria Chu MD at [facility] Right: Chest [employer] 09/08/2023 [id number] / / [id number] Procedures Procedure Name Priority Date/Time Associated Diagnosis Comments CARDIOLIPIN ANTIBODY IGG/IGM PANEL Routine 02/03/2024 2:52 PM RACE STEWARD PHOSPHORUS BLOOD Routine 02/03/2024 2:52 PM RACE STEWARD MAGNESIUM BLOOD Routine 02/03/2024 2:52 PM RACE STEWARD C-REACTIVE PROTEIN Routine 02/03/2024 2: 52 PM RACE STEWARD IMMUNOGLOBULINS IGG/IGM/IGA PANEL Routine 02/03/2024 2:52 PM RACE STEWARD Malignant neoplasm of central portion of left breast in female, estrogen receptor positive (HCC) Osteopenia of multiple sites Normocytic anemia Muscle spasm VITAMIN D 25-HYDROXY Routine 02/03/2024 2:52 PM RACE STEWARD Malignant neoplasm of central portion of left breast in female, estrogen receptor positive (HCC) Osteopenia of multiple sites Normocytic anemia Muscle spasm COMPREHENSIVE METABOLIC PANEL Routine 02/03/2024 2:52 PM RACE STEWARD Malignant neoplasm of central portion of left breast in female, estrogen receptor positive (HCC) Osteopenia of multiple sites Normocytic anemia Muscle spasm CBC W AUTO DIFFERENTIAL (CANCER CARE) Routine 02/03/2024 1:16 PM RACE STEWARD Malignant neoplasm of central portion of left [...] DENSITY AXIAL SKELETON Routine 02/10/2023 11:11 AM RACE STEWARD Malignant neoplasm of central portion of left breast in female, estrogen receptor positive (HCC) Anemia, unspecified type Essential hypertension Asymptomatic menopausal state from Last 3 Months or Most Recently Relevant to Health Maintenance Results * (ABNORMAL) CARDIOLIPIN ANTIBODY IGG/IGM PANEL (02/03/2024 2:52 PM RACE STEWARD) Cardiolipin Antibody IgG <9 0 - 14 GPL U/mL [facility] INSURANCE BILL Comment: Negative: <15 Indeterminate: 15 - 20 Low-Med Positive: >20 - 80 High Positive: >80 Cardiolipin Antibody IgM 26(H) 0 - 12 MPL U/mL [facility] INSURANCE BILL Comment: Negative: <13 Indeterminate: 13 - 20 Low-Med Positive: >20 - 80 High Positive: >80 02/03/2024 2:52 PM RACE STEWARD 02/03/2024 Comment:Blood Release to [facility] INSURANCE BILL - 02/04/2024 3:07 PM RACE STEWARD Performed at: [address] [place] [id number] Patented Hogshead Assembler: Blair Michael PhD, Phone: [phone] Taj Childers MD LAB - SEROLOGY ORDER TALI Performing Organization Address City/[facility] Co de Phone Number [email or web address] INSURANCE BILL [address] [place] [address] * C-REACTIVE PROTEIN (02/03/2024 2:52 PM RACE STEWARD) Pathologist [facility] C-Reactive Protein 0.23 <=0.50 mg/dL [facility] INSURANCE BILL 02/03/2024 2:52 PM RACE STEWARD 02/03/2024 Comment:Blood Release to [facility] INSURANCE BILL - 02/03/2024 9:06 PM RACE STEWARD Performed at: [address] [place] [address] [address] [place], [place] [id number] Patented Hogshead Assembler: Michael Baxter MD, Phone: [phone] Taj Childers MD LAB - CHEMISTRY TREMAINE FIORE Performing Organization Address City/[facility]/ZIP Co de Phone Number [facility] INSURANCE BILL [address] [place] [address] * VITAMIN D 25-HYDROXY (02/03/2024 2:52 PM RACE STEWARD) Vitamin D, 25 Hydroxy 31.7 30 - 80 ng/mL [facility] INSURANCE BILL Comment: Vitamin D Status: Deficiency <20 ng/mL Insufficiency 20-30 ng/mL Sufficiency 30-100 ng/mL Toxicity >100 ng/mL Blood BLOOD SPECIMEN / Unknown 02/03/2024 2:52 PM RACE STEWARD 02/03/2024 Comment:Blood Release to [facility] anita Grissom [facility] INSURANCE BILL - 02/03/2024 11:06 PM RACE STEWARD Performed at: [address] [place] [id number] Patented Hogshead Assembler: Michael Baxter MD, Phone: [phone] Taj Childers MD LAB - CHEMISTRY TREMAINE FIORE [facility] INSURANCE BILL [address] [place] [address] * (ABNORMAL) COMPREHENSIVE METABOLIC PANEL (02/03/2024 2:52 PM RACE STEWARD) Glucose 86 70 - 99 mg/dL [facility] [...] BLOOD SPECIMEN / Unknown 02/03/2024 2:52 PM RACE STEWARD 02/03/2024 Comment:Blood Release to pat i Narrative [facility] INSURANCE BILL - 02/03/2024 9:06 PM RACE STEWARD Performed at: [address] [place] [id number] Patented Hogshead Assembler: Michael Baxter MD, Phone: [phone] Taj Childers MD LAB - CHEMISTRY TREMAINE FIORE Performing Organization Address City/[facility]/ZIP Co de Phone Number [facility] INSURANCE BILL [address] [place] [address] * PHOSPHORUS BLOOD (02/03/2024 2:52 PM RACE STEWARD) Phosphorus 3.2 3.0 - 4.3 mg/dL [facility] INSURANCE BILL 02/03/2024 2:52 PM RACE STEWARD 02/03/2024 Comment:Blood Release to pat i Narrative [facility] INSURANCE BILL - 02/04/2024 11:08 AM RACE STEWARD Performed at: [address] [id number] Patented Hogshead Assembler: Blair Michael PhD, Phone: [phone] Taj Childers MD LAB - CHEMISTRY TREMAINE FIORE Performing Organization Address City/[facility]/ZIP Co de Phone Number [facility] INSURANCE BILL [address] [place] [address] * MAGNESIUM BLOOD (02/03/2024 2:52 PM RACE STEWARD) Magnesium 2.3 1.6 - 2.6 mg/dL [facility] INSURANCE BILL 02/03/2024 2:52 PM RACE STEWARD 02/03/2024 Comment:Blood Release to pat i Narrative [facility] INSURANCE BILL - 02/03/2024 9:06 PM RACE STEWARD Performed at: [address] [place] [id number] Patented Hogshead Assembler: Michael Baxter MD, Phone: [phone] Taj Childers MD LAB - CHEMISTRY TREMAINE FIORE Performing Organization Address City/[facility]/ZIP Co de Phone Number [facility] INSURANCE BILL [address] [place] [address] * IMMUNOGLOBULINS IGG/IGM/IGA PANEL (02/03/2024 2:52 PM RACE STEWARD) Pathologist [facility] IgG Quantitative 1,108 586 - 1,602 mg/dL [facility] INSURANCE BILL IgA Quantitative 169 64 - 422 mg/dL [facility] INSURANCE BILL IgM Quantitative 136 26 - 217 mg/dL [facility] INSURANCE BILL Blood BLOOD SPECIMEN / Unknown 02/03/2024 2:52 PM RACE STEWARD 02/03/2024 Comment:Blood Release to [facility] INSURANCE BILL - 02/04/2024 7:07 AM RACE STEWARD Performed at: [address] [place] [id number] Patented Hogshead Assembler: Blair Michael PhD, Phone: [phone] Taj Childers MD LAB - CHEMISTRY TREMAINE FIORE Performing Organization Address [facility] Co de Phone Number [facility] INSURANCE BILL [address] [place] [address] * (ABNORMAL) CBC W AUTO DIFFERENTIAL (CANCER CARE) (02/03/2024 1:16 PM RACE STEWARD) Pathologist [facility] WBC 7.3 4.4 - 10.7 x10E9/L 02/03/2024 1:23 PM RACE STEWARD [facility] Neutrophils % 73.6(H) 44.0 - 73.0 % 02/03/2024 1:23 PM RACE STEWARD [facility] Lymphocytes % 17.8(L) 20.0 - 43.0 % 02/03/2024 1:23 PM RACE STEWARD [facility] Monocytes % 7.6 5.0 - 13.0 % 02/03/2024 1:23 PM RACE STEWARD [facility] Eosinophils % 0.0 0.0 - 6.0 % 02/03/2024 1:23 PM RACE STEWARD [facility] Basophils % 0.3 0.0 - 2.0 % 02/03/2024 1:23 PM RACE STEWARD [facility] Immature Granulocytes 0.7 <=1 % 02/03/2024 1:23 PM RACE STEWARD [facility] Neutrophil Absolute 5.35 2.01 - 7.14 x10E9/L 02/03/2024 1:23 PM RACE STEWARD [facility] Lymphocytes Absolute 1.29 1.07 - 3.94 x10E9/L 02/03/2024 1:23 PM RACE STEWARD [facility] Monocytes Absolute 0.55 0.26 - 1.07 x10E9/L 02/03/2024 1:23 PM RACE STEWARD [facility] Eosinophils Absolute 0.00 0 - 0.47 x10E9/L 02/03/2024 1:23 PM RACE STEWARD [facility] Basophils Absolute 0.02 0 - 0.08 x10E9/L 02/03/2024 1:23 PM RACE STEWARD [facility] RBC 3.74(L) 3.80 - 5.20 x10E12/L 02/03/2024 1:23 PM RACE STEWARD [facility] Hemoglobin 11.7(L) 12.0 - 15.6 gm/dL 02/03/2024 1:23 PM RACE STEWARD [facility] Hematocrit 34.3(L) 35.9 - 45.5 % 02/03/2024 1:23 PM RACE STEWARD [facility] MCV 91.7 80.7 - 98.3 fl 02/03/2024 1:23 PM RACE STEWARD [facility] MCH 31.3 26.7 - 34.0 pg 02/03/2024 1:23 PM RACE STEWARD [facility] MCHC 34.1 30.8 - 35.9 gm/dL 02/03/2024 1:23 PM RACE STEWARD [facility] RDW-CV 16.0(H) 12.1 - 14.9 % 02/03/2024 1:23 PM RACE STEWARD [facility] Platelet Count 250 153 - 416 x10E9/L 02/03/2024 1:23 PM RACE STEWARD [facility] MPV 8.5(L) 9.4 - 12.9 fl 02/03/2024 1:23 PM RACE STEWARD [facility] NRBC 0.0 <=0 /100 WBC 02/03/2024 1:23 PM RACE STEWARD [facility] Blood BLOOD SPECIMEN / Unknown 02/03/2024 1:16 PM RACE STEWARD 02/03/2024 1:16 PM RACE STEWARD Taj Childers MD LAB - HEMATOLOGY ORD ERABLES Performing Organization Address City/[facility]/ZIP Co de Phone Number [facility] [address] * (ABNORMAL) LIPID PROFILE (LIPID PANEL) (08/25/2023 [...] Resulting Agency Comment Lab Testing performed at: [facility] [address] [facility] [id number] Lori Rodríguez APRN-DIRECTOR HOUSEKEEPING LAB - CHEM ISTRY ORDERABLES Performing Organization Address City/[facility]/ZIP Co de Phone Number [facility] INSURANCE BILL [address] [place] [address] * MAMMO BILAT DIAGNOSTIC W KENYA (08/17/2023 [...] BONE DENSITY AXIAL SKELETON (02/10/2023 11:11 AM RACE STEWARD) Anatomical Region Laterality Modality Nuclear Medicine 02/10/2023 11:2 2 AM RACE STEWARD Impressions 02/10/2023 11:22 AM RACE STEWARD IMPRESSION: WHO category: Osteopenia WORLD HEALTH ORGANIZATION DEFINITIONS NORMAL= T-Score at or above -1.0 SD OSTEOPENIA = T-Score between -1 and -2.5 SD OSTEOPOROSIS = T-Score at or below -2.5 SD > Interpreting Provider: Dharmesh Harris DO on 02/10/2023 11:22 AM Narrative 02/10/2023 11:22 AM RACE STEWARD PROCEDURE: DEXA BONE DENSITY AXIAL SKELETON DATE/TIME [...] neoplasm of central portion of leftfemale breast (CMS-HCC) Z17.0: Estrogen receptor positive status [...] Documents on File Type Date Recorded 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
--- OUTSIDE RECORDS SUMMARY | 2024-03-27 16:12 | XMS_ITS | Patient Health Summary ---
Author Organization [facility] Address [address] [place] [address] Care Team Providers Care Nailing Machine Feeder Name Role Phone Raymon Juarez MD Primary Care Provider [phone] Note from [facility],non-owned Affiliates and Associated Physician Practices is amultiple site organization consisting of ambulatory clinics and hospital sitesin [place], [place], [place] and [place]. This disclosure is being madepursuant to the Care Everywhere program and may not contain all information available regarding this patient. Last updated 17.[facility] Allergies * Cephalexin(Other) * Hmg-Coa-R Inhibitors(Other) * Acetaminophen(Unknown),Inactive * Allergy(Rash) -Medium Criticality,Inactive * Contrast-Iodinated Agents For Ct/Other(Other),Inactive * Iodine(Other),Inactive * Morphine(Other,Unknown),Inactive * Nsaids(Other),Inactive * Sulfa Drugs(Unknown),Inactive Medications * Be aware that medications may not be up to date on this document. Alwaysverify current medications with the patient. * amLODIPine (Norvasc) 10 MG tablet amlodipine 10 mg tablet TAKE 1 TABLET BY MOUTH ONCE DAILY * Nutritional Supplements (ENSURE PLUS PO) Take by mouth once daily * prochlorperazine (Compazine) 10 MG tablet(Started 09/30/2022) Take 1 (one) tablet by mouth every 6 hours as needed for Nausea/Vomiting 6 refills by 09/30/2023 * ondansetron (Zofran) 8 MG tablet(Started 09/30/2022) Take 1 (one) tablet by mouth every 8 hours as needed for Nausea/Vomiting 6 refills by 09/30/2023 * Biotin 5000 MCG * acetaminophen (Tylenol) 500 MG tablet Take 1 (one) tablet by mouth every 4 hours as needed for Fever or Pain Maximum allowable Acetaminophen amount = 4 Grams (4000 mg) / 24 hours. * Cholecalciferol (Vitamin D-3) 125 MCG (5000 UT) Take by mouth once daily * triamcinolone acetonide (Kenalog) 0.5 % ointment(Started 06/09/2023) APPLY A THIN LAYER OF OINTMENT TOPICALLY TO THE AFFECTED AREA(S) TWICE DAILY NEEDED * anastrozole (Arimidex) 1 MG tablet(Started 02/03/2024) Take 1 (one) tablet by mouth once daily -90 day supply 4 refills by 02/02/2025 * cyclobenzaprine (Flexeril) 5 MG tablet(Started 02/03/2024) Take 1 (one) tablet by mouth 3 times daily as needed 1 refill by 02/02/2025 Active Problems Problem Noted Date Diagnosed Date High risk for chemotherapy-induced infectious co mplication 10/07/2022 Hepatic cyst 09/22/2022 Encounter for long-term (current) use of medicat ions 08/07/2022 Essential hypertension 08/07/2022 Mitral valve prolapse 08/07/2022 Malignant neoplasm of centra l portion of left breast in female, estrogen receptor positive 07/30/2022 Cancer Staging:Clinical stage from 08/06/2022:Stage IIIB(cT4b, cN0, cM0, G2, ER+, AZ-, HER2+) - Signed by Valeria Chu MD on 09/20/2022 Pathologic stage from 09/20/2022:Stage IIIB(pT4b, pN0(i+)(sn), cM0, G2, ER+, AZ-, HER2+) - Signed by Valeria Chu MD on 09/20/2022 Immunizations * COVID PFIZER BIVALENT 12Y+ 30mcg/0.3ML(Given 12/07/2022) Social History Tobacco Use Types Packs/Day Years [...] Comments Blood Pressure 120/70 03/24/2024 2:34 PM 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 Pulse 90 02/21/2024 10:39 AM 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 Temperature 36.9 C (98.4 F) 02/21/2024 10:39 AM 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 Respiratory Rate 18 02/21/2024 10:39 AM 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 Oxygen Saturation 97% 02/21/2024 10:39 AM 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 Inhaled Oxygen Concentration - - Weight 59.9 kg (132 lb) 03/24/2024 2:34 PM 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 Height 157.5 cm (5' 2 ) 03/24/2024 2:34 PM 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 Body Mass Index 24.14 03/24/2024 2:34 PM 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 Medical Devices Implanted Type 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 Device 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 Shelf Expiration Date Model / Serial / Lot Port Implinfn Powerport Mri Argd Chrnflx Implanted:Qty: 1 on 10/02/2022 by Valeria Chu MD at [facility] Right: Chest [employer] 09/08/2023 [id number] / / [id number] Procedures * CARDIOLIPIN ANTIBODY IGG/IGM PANEL(Performed 02/03/2024) * PHOSPHORUS BLOOD(Performed 02/03/2024) * MAGNESIUM BLOOD(Performed 02/03/2024) * C-REACTIVE PROTEIN(Performed 02/03/2024) * IMMUNOGLOBULINS IGG/IGM/IGA PANEL(Performed 02/03/2024) Performed for Malignant neoplasm of central portion of left breast in female, estrogen receptor positive (HCC), Osteopenia of multiple sites, Normocytic anemia, Muscle spasm * VITAMIN D 25-HYDROXY(Performed 02/03/2024) Performed for Malignant neoplasm of central portion of left breast in female, estrogen receptor positive (HCC), Osteopenia of multiple sites, Normocytic anemia, Muscle spasm * COMPREHENSIVE METABOLIC PANEL(Performed 02/03/2024) Performed for Malignant neoplasm of central portion of left breast in female, estrogen receptor positive (HCC), Osteopenia of multiple sites, Normocytic anemia, Muscle spasm * CBC W AUTO DIFFERENTIAL (CANCER CARE)(Performed 02/03/2024) Performed for Malignant neoplasm of central portion of left breast in female, estrogen receptor positive (HCC), Normocytic anemia * AMB REFERRAL TO RHEUMATOLOGY(Performed 11/18/2023) Performed for Malignant neoplasm of central portion of left breast in female, estrogen receptor positive (HCC), History of high risk medication treatment, Joint stiffness, Osteopenia of multiple sites, High risk for chemotherapy- induced infectious complication, Aromatase inhibitor use, Normocytic anemia * BETA-2 GLYCOPROTEIN 1 ANTIBODY IGG/IGM PANEL(Performed 11/03/2023) Performed for Malignant neoplasm of central portion of left breast in female, estrogen receptor positive (HCC), History of high risk medication treatment, Joint stiffness, Osteopenia of multiple sites, High risk for chemotherapy- induced infectious complication, Aromatase inhibitor use, Normocytic anemia * CARDIOLIPIN ANTIBODY IGG/IGM PANEL(Performed 11/03/2023) Performed for Malignant neoplasm of central portion of left breast in female, estrogen receptor positive (HCC), History of high risk medication treatment, Joint stiffness, Osteopenia of multiple sites, High risk for chemotherapy- induced infectious complication, Aromatase inhibitor use, Normocytic anemia * LUPUS ANTICOAGULANT PANEL(Performed 11/03/2023) Performed for Malignant neoplasm of central portion of left breast in female, estrogen receptor positive (HCC), History of high risk medication treatment, Joint stiffness, Osteopenia of multiple sites, High risk for chemotherapy- induced infectious complication, Aromatase inhibitor use, Normocytic anemia * COMPREHENSIVE METABOLIC PANEL(Performed 11/03/2023) Performed for Malignant neoplasm of central portion of left breast in female, estrogen receptor positive (HCC) * MAGNESIUM BLOOD(Performed 11/03/2023) Performed for Malignant neoplasm of central portion of left breast in female, estrogen receptor positive (HCC), History of high risk medication treatment * CBC W AUTO DIFFERENTIAL (CANCER CARE)(Performed 11/03/2023) Performed for Malignant neoplasm of central portion of left breast in female, estrogen receptor positive (HCC) * NM BONE SCAN WHOLE BODY(Performed 10/25/2023) Performed for Malignant neoplasm of central portion of left breast in female, estrogen receptor positive (HCC) * CT CHEST ABDOMEN PELVIS W CONT(Performed 10/25/2023) Performed for Malignant neoplasm of central portion of left breast in female, estrogen receptor positive (HCC) * COMPREHENSIVE METABOLIC PANEL(Performed 10/06/2023) Performed for Malignant neoplasm of central portion of left breast in female, estrogen receptor positive (HCC) * MAGNESIUM BLOOD(Performed 10/06/2023) Performed for Malignant neoplasm of central portion of left breast in female, estrogen receptor positive (HCC) * CBC W AUTO DIFFERENTIAL (CANCER CARE)(Performed 10/06/2023) Performed for Malignant neoplasm of central portion of left breast in female, estrogen receptor positive (HCC) * MARY CARMEN 12 PLUS PROFILE(Performed 10/06/2023) * CARLOS STAINING PATTERNS REFLEXED(Performed 09/15/2023) * CK BLOOD(Performed 09/15/2023) Performed for Malignant neoplasm of central portion of left breast in female, estrogen receptor positive (HCC), Encounter for long-term (current) use of medications, Osteopenia of multiple sites, Normocytic anemia, Joint stiffness, History of high risk medication treatment * ERYTHROCYTE SEDIMENTATION RATE(Performed 09/15/2023) Performed for Malignant neoplasm of central portion of left breast in female, estrogen receptor positive (HCC), Encounter for long-term (current) use of medications, Osteopenia of multiple sites, Normocytic anemia, Joint stiffness, History of high risk medication treatment * C-REACTIVE PROTEIN(Performed 09/15/2023) Performed for Malignant neoplasm of central portion of left breast in female, estrogen receptor positive (HCC), Encounter for long-term (current) use of medications, Osteopenia of multiple sites, Normocytic anemia, Joint stiffness, History of high risk medication treatment * RHEUMATOID FACTOR BLOOD QUANTITATIVE(Performed 09/15/2023) Performed for Malignant neoplasm of central portion of left breast in female, estrogen receptor positive (HCC), Encounter for long-term (current) use of medications, Osteopenia of multiple sites, Normocytic anemia, Joint stiffness, History of high risk medication treatment * MARY CARMEN BLOOD SCREEN W/REFLEX TITER(Performed 09/15/2023) Performed for Malignant neoplasm of central portion of left breast in female, estrogen receptor positive (HCC), Encounter for long-term (current) use of medications, Osteopenia of multiple sites, Normocytic anemia, Joint stiffness, History of high risk medication treatment * MAGNESIUM BLOOD(Performed 09/15/2023) Performed for Malignant neoplasm of central portion of left breast in female, estrogen receptor positive (HCC) * COMPREHENSIVE METABOLIC PANEL(Performed 09/15/2023) Performed for Malignant neoplasm of central portion of left breast in female, estrogen receptor positive (HCC) * CBC W AUTO DIFFERENTIAL (CANCER CARE)(Performed 09/15/2023) Performed for Malignant neoplasm of central portion of left breast in female, estrogen receptor positive (HCC) * ECHO COMPLETE W CONTRAST(Performed 09/09/2023) Performed for Malignant neoplasm of central portion of left female breast, unspecified estrogen receptor status (HCC), Aromatase inhibitor use, Hx of high risk medication treatment * PHOSPHORUS BLOOD(Performed 08/25/2023) Performed for Malignant neoplasm of central portion of left breast in female, estrogen receptor positive (HCC), Osteopenia of multiple sites, Encounter for long-term (current) use of medications, Normocytic anemia, Aromatase inhibitor use, History of high risk medication treatment * VITAMIN D 25-HYDROXY(Performed 08/25/2023) Performed for Malignant neoplasm of central portion of left breast in female, estrogen receptor positive (HCC), Osteopenia of multiple sites, Encounter for long-term (current) use of medications, Normocytic anemia, Aromatase inhibitor use, History of high risk medication treatment * LIPID PROFILE(Performed 08/25/2023) Performed for Malignant neoplasm of central portion of left breast in female, estrogen receptor positive (HCC), Osteopenia of multiple sites, Encounter for long-term (current) use of medications, Normocytic anemia, Aromatase inhibitor use * MAGNESIUM BLOOD(Performed 08/25/2023) Performed for Malignant neoplasm of central portion of left breast in female, estrogen receptor positive (HCC), Osteopenia of multiple sites, Encounter for long-term (current) use of medications, Normocytic anemia, Aromatase inhibitor use * COMPREHENSIVE METABOLIC PANEL(Performed 08/25/2023) Performed for Malignant neoplasm of central portion of left breast in female, estrogen receptor positive (HCC), Osteopenia of multiple sites, Encounter for long-term (current) use of medications, Normocytic anemia, Aromatase inhibitor use * CBC W AUTO DIFFERENTIAL (CANCER CARE)(Performed 08/25/2023) Performed for Malignant neoplasm of central portion of left breast in female, estrogen receptor positive (HCC), Osteopenia of multiple sites, Encounter for long-term (current) use of medications, Normocytic anemia, Aromatase inhibitor use * MAMMO BILAT DIAGNOSTIC W KENYA(Performed 08/17/2023) Performed for Malignant neoplasm of central portion of left breast in female, estrogen receptor positive (HCC) * HEMOGLOBIN A1C(Performed 08/04/2023) Performed for Malignant neoplasm of central portion of left breast in female, estrogen receptor positive (HCC), Essential hypertension, High risk for chemotherapy-induced infectious complication, Normocytic anemia, Encounter for long-term (current) use of medications * COMPREHENSIVE METABOLIC PANEL(Performed 08/04/2023) Performed for Malignant neoplasm of central portion of left breast in female, estrogen receptor positive (HCC) * MAGNESIUM BLOOD(Performed 08/04/2023) Performed for Malignant neoplasm of central portion of left breast in female, estrogen receptor positive (HCC) * CBC W AUTO DIFFERENTIAL (CANCER CARE)(Performed 08/04/2023) Performed for Malignant neoplasm of central portion of left breast in female, estrogen receptor positive (HCC), Anemia, unspecified type * COMPREHENSIVE METABOLIC PANEL(Performed 07/14/2023) Performed for Malignant neoplasm of central portion of left breast in female, estrogen receptor positive (HCC) * MAGNESIUM BLOOD(Performed 07/14/2023) Performed for Malignant neoplasm of central portion of left breast in female, estrogen receptor positive (HCC) * CBC W AUTO DIFFERENTIAL (CANCER CARE)(Performed 07/14/2023) Performed for Malignant neoplasm of central portion of left breast in female, estrogen receptor positive (HCC), Anemia, unspecified type * COMPREHENSIVE METABOLIC PANEL(Performed 06/23/2023) Performed for Malignant neoplasm of central portion of left breast in female, estrogen receptor positive (HCC) * MAGNESIUM BLOOD(Performed 06/23/2023) Performed for Malignant neoplasm of central portion of left breast in female, estrogen receptor positive (HCC) * CBC W AUTO DIFFERENTIAL (CANCER CARE)(Performed 06/23/2023) Performed for Malignant neoplasm of central portion of left breast in female, estrogen receptor positive (HCC), Anemia, unspecified type * VITAMIN D 25-HYDROXY(Performed 06/02/2023) Performed for Osteopenia of multiple sites * MAGNESIUM BLOOD(Performed 06/02/2023) Performed for Malignant neoplasm of central portion of left breast in female, estrogen receptor positive (HCC), Anemia, unspecified type * COMPREHENSIVE METABOLIC PANEL(Performed 06/02/2023) Performed for Malignant neoplasm of central portion of left breast in female, estrogen receptor positive (HCC), Anemia, unspecified type * CBC W AUTO DIFFERENTIAL (CANCER CARE)(Performed 06/02/2023) Performed for Malignant neoplasm of central portion of left breast in female, estrogen receptor positive (HCC), Anemia, unspecified type * COMPREHENSIVE METABOLIC PANEL(Performed 05/12/2023) Performed for Malignant neoplasm of central portion of left breast in female, estrogen receptor positive (HCC), Anemia, unspecified type * MAGNESIUM BLOOD(Performed 05/12/2023) Performed for Malignant neoplasm of central portion of left breast in female, estrogen receptor positive (HCC), Anemia, unspecified type * CBC W AUTO DIFFERENTIAL (CANCER CARE)(Performed 05/12/2023) Performed for Malignant neoplasm of central portion of left breast in female, estrogen receptor positive (HCC), Anemia, unspecified type * ECHO COMPLETE(Performed 05/11/2023) Performed for Malignant neoplasm of central portion of left breast in female, estrogen receptor positive (HCC), High risk for chemotherapy-induced infectious complication * MAGNESIUM BLOOD(Performed 04/21/2023) Performed for Malignant neoplasm of central portion of left breast in female, estrogen receptor positive (HCC) * COMPREHENSIVE METABOLIC PANEL(Performed 04/21/2023) Performed for Malignant neoplasm of central portion of left breast in female, estrogen receptor positive (HCC) * CBC W AUTO DIFFERENTIAL (CANCER CARE)(Performed 04/21/2023) Performed for Malignant neoplasm of central portion of left breast in female, estrogen receptor positive (HCC) * RAD ONC ARIA SESSION SUMMARY(Performed 04/09/2023) * RAD ONC ARIA SESSION SUMMARY(Performed 04/08/2023) * RAD ONC ARIA SESSION SUMMARY(Performed 04/07/2023) * RAD ONC ARIA SESSION SUMMARY(Performed 04/06/2023) * RAD ONC ARIA SESSION SUMMARY(Performed 04/05/2023) * RAD ONC ARIA SESSION SUMMARY(Performed 04/02/2023) * RAD ONC ARIA SESSION SUMMARY(Performed 04/01/2023) * MAGNESIUM BLOOD(Performed 03/31/2023) Performed for Malignant neoplasm of central portion of left breast in female, estrogen receptor positive (HCC), Essential hypertension, Mitral valve prolapse, Anemia, unspecified type, High risk for chemotherapy-induced infectious complication * COMPREHENSIVE METABOLIC PANEL(Performed 03/31/2023) Performed for Malignant neoplasm of central portion of left breast in female, estrogen receptor positive (HCC), Essential hypertension, Mitral valve prolapse, Anemia, unspecified type, High risk for chemotherapy-induced infectious complication * CBC W AUTO DIFFERENTIAL (CANCER CARE)(Performed 03/31/2023) Performed for Malignant neoplasm of central portion of left breast in female, estrogen receptor positive (HCC), Essential hypertension, Mitral valve prolapse, Anemia, unspecified type, High risk for chemotherapy-induced infectious complication * RAD ONC ARIA SESSION SUMMARY(Performed 03/31/2023) * RAD ONC ARIA SESSION SUMMARY(Performed 03/30/2023) * RAD ONC ARIA SESSION SUMMARY(Performed 03/26/2023) * RAD ONC ARIA SESSION SUMMARY(Performed 03/25/2023) * RAD ONC ARIA SESSION SUMMARY(Performed 03/24/2023) * RAD ONC ARIA SESSION SUMMARY(Performed 03/23/2023) * RAD ONC ARIA SESSION SUMMARY(Performed 03/22/2023) * RAD ONC ARIA SESSION SUMMARY(Performed 03/19/2023) * RAD ONC ARIA SESSION SUMMARY(Performed 03/18/2023) * RAD ONC ARIA SESSION SUMMARY(Performed 03/17/2023) * RAD ONC ARIA SESSION SUMMARY(Performed 03/16/2023) * RAD ONC ARIA SESSION SUMMARY(Performed 03/15/2023) * RAD ONC ARIA SESSION SUMMARY(Performed 03/12/2023) * RAD ONC ARIA SESSION SUMMARY(Performed 03/11/2023) * COMPREHENSIVE METABOLIC PANEL(Performed 03/10/2023) Performed for Malignant neoplasm of central portion of left breast in female, estrogen receptor positive (HCC), Anemia, unspecified type * MAGNESIUM BLOOD(Performed 03/10/2023) Performed for Malignant neoplasm of central portion of left breast in female, estrogen receptor positive (HCC), Anemia, unspecified type * CBC W AUTO DIFFERENTIAL (CANCER CARE)(Performed 03/10/2023) Performed for Malignant neoplasm of central portion of left breast in female, estrogen receptor positive (HCC), Anemia, unspecified type * RAD ONC ARIA SESSION SUMMARY(Performed 03/10/2023) * RAD ONC ARIA SESSION SUMMARY(Performed 03/09/2023) * RAD ONC ARIA SESSION SUMMARY(Performed 03/08/2023) * RAD ONC ARIA SESSION SUMMARY(Performed 03/05/2023) * RAD ONC ARIA SESSION SUMMARY(Performed 03/04/2023) * RAD ONC ARIA SESSION SUMMARY(Performed 03/03/2023) * RAD ONC ARIA SESSION SUMMARY(Performed 03/02/2023) * RAD ONC ARIA SESSION SUMMARY(Performed 02/26/2023) * RAD ONC ARIA SESSION SUMMARY(Performed 02/25/2023) * RAD ONC ARIA SESSION SUMMARY(Performed 02/24/2023) * RAD ONC ARIA SESSION SUMMARY(Performed 02/23/2023) * RAD ONC ARIA SESSION SUMMARY(Performed 02/22/2023) * RAD ONC ARIA SESSION SUMMARY(Performed 02/19/2023) * RAD ONC ARIA SESSION SUMMARY(Performed 02/18/2023) * MAGNESIUM BLOOD(Performed 02/17/2023) Performed for Malignant neoplasm of central portion of left breast in female, estrogen receptor positive (HCC), Anemia, unspecified type * COMPREHENSIVE METABOLIC PANEL(Performed 02/17/2023) Performed for Malignant neoplasm of central portion of left breast in female, estrogen receptor positive (HCC), Anemia, unspecified type * CBC W AUTO DIFFERENTIAL (CANCER CARE)(Performed 02/17/2023) Performed for Malignant neoplasm of central portion of left breast in female, estrogen receptor positive (HCC), Anemia, unspecified type * RAD ONC ARIA SESSION SUMMARY(Performed 02/17/2023) * COMPREHENSIVE METABOLIC PANEL(Performed 02/10/2023) Performed for Malignant neoplasm of central portion of left breast in female, estrogen receptor positive (HCC), Anemia, unspecified type * MAGNESIUM BLOOD(Performed 02/10/2023) Performed for Malignant neoplasm of central portion of left breast in female, estrogen receptor positive (HCC), Anemia, unspecified type * IRON + TIBC + FERRITIN(Performed 02/10/2023) Performed for Malignant neoplasm of central portion of left breast in female, estrogen receptor positive (HCC), Anemia, unspecified type, Essential hypertension, High risk for chemotherapy-induced infectious complication, Mitral valve prolapse, APONTE (dyspnea on exertion), Cough, unspecified type * VITAMIN B12 FOLATE PANEL(Performed 02/10/2023) Performed for Malignant neoplasm of central portion of left breast in female, estrogen receptor positive (HCC), Anemia, unspecified type, Essential hypertension, High risk for chemotherapy-induced infectious complication, Mitral valve prolapse, APONTE (dyspnea on exertion), Cough, unspecified type * B-TYPE NATRIURETIC PEPTIDE(Performed 02/10/2023) Performed for Malignant neoplasm of central portion of left breast in female, estrogen receptor positive (HCC), Anemia, unspecified type, Essential hypertension, High risk for chemotherapy-induced infectious complication, Mitral valve prolapse, APONTE (dyspnea on exertion), Cough, unspecified type * ECHO COMPLETE(Performed 02/10/2023) Performed for Malignant neoplasm of central portion of left breast in female, estrogen receptor positive (HCC), Mitral valve prolapse * XR CHEST 2VW(Performed 02/10/2023) Performed for Malignant neoplasm of central portion of left breast in female, estrogen receptor positive (HCC), APONTE (dyspnea on exertion), Cough, unspecified type * DEXA BONE DENSITY AXIAL SKELETON(Performed 02/10/2023) Performed for Malignant neoplasm of central portion of left breast in female, estrogen receptor positive (HCC), Anemia, unspecified type, Essential hypertension, Asymptomatic menopausal state * CBC W AUTO DIFFERENTIAL (CANCER CARE)(Performed 02/10/2023) Performed for Malignant neoplasm of central portion of left breast in female, estrogen receptor positive (HCC), Anemia, unspecified type * MAGNESIUM BLOOD(Performed 01/20/2023) Performed for Malignant neoplasm of central portion of left breast in female, estrogen receptor positive (HCC), Anemia, unspecified type, Essential hypertension, Mitral valve prolapse, High risk for chemotherapy-induced infectious complication * COMPREHENSIVE METABOLIC PANEL(Performed 01/20/2023) Performed for Malignant neoplasm of central portion of left breast in female, estrogen receptor positive (HCC), Anemia, unspecified type, Essential hypertension, Mitral valve prolapse, High risk for chemotherapy-induced infectious complication * CBC W AUTO DIFFERENTIAL (CANCER CARE)(Performed 01/20/2023) Performed for Malignant neoplasm of central portion of left breast in female, estrogen receptor positive (HCC), Anemia, unspecified type * MAGNESIUM BLOOD(Performed 12/30/2022) Performed for Malignant neoplasm of central portion of left breast in female, estrogen receptor positive (HCC) * COMPREHENSIVE METABOLIC PANEL(Performed 12/30/2022) Performed for Malignant neoplasm of central portion of left breast in female, estrogen receptor positive (HCC) * CBC W AUTO DIFFERENTIAL (CANCER CARE)(Performed 12/30/2022) Performed for Malignant neoplasm of central portion of left breast in female, estrogen receptor positive (HCC), Anemia, unspecified type * COMPREHENSIVE METABOLIC PANEL(Performed 12/16/2022) Performed for Malignant neoplasm of central portion of left breast in female, estrogen receptor positive (HCC) * MAGNESIUM BLOOD(Performed 12/16/2022) Performed for Malignant neoplasm of central portion of left breast in female, estrogen receptor positive (HCC) * CBC W AUTO DIFFERENTIAL (CANCER CARE)(Performed 12/16/2022) Performed for Malignant neoplasm of central portion of left breast in female, estrogen receptor positive (HCC), Anemia, unspecified type * COMPREHENSIVE METABOLIC PANEL(Performed 12/09/2022) Performed for Malignant neoplasm of central portion of left breast in female, estrogen receptor positive (HCC) * MAGNESIUM BLOOD(Performed 12/09/2022) Performed for Malignant neoplasm of central portion of left breast in female, estrogen receptor positive (HCC) * CBC W AUTO DIFFERENTIAL (CANCER CARE)(Performed 12/09/2022) Performed for Malignant neoplasm of central portion of left breast in female, estrogen receptor positive (HCC), Anemia, unspecified type * IRON + TIBC + FERRITIN(Performed 11/25/2022) Performed for Malignant neoplasm of central portion of left breast in female, estrogen receptor positive (HCC), Anemia, unspecified type * MAGNESIUM BLOOD(Performed 11/25/2022) Performed for Malignant neoplasm of central portion of left breast in female, estrogen receptor positive (HCC) * COMPREHENSIVE METABOLIC PANEL(Performed 11/25/2022) Performed for Malignant neoplasm of central portion of left breast in female, estrogen receptor positive (HCC) * CBC W AUTO DIFFERENTIAL (CANCER CARE)(Performed 11/25/2022) Performed for Malignant neoplasm of central portion of left breast in female, estrogen receptor positive (HCC) * MAGNESIUM BLOOD(Performed 11/18/2022) Performed for Malignant neoplasm of central portion of left breast in female, estrogen receptor positive (HCC) * COMPREHENSIVE METABOLIC PANEL(Performed 11/18/2022) Performed for Malignant neoplasm of central portion of left breast in female, estrogen receptor positive (HCC) * CBC W AUTO DIFFERENTIAL (CANCER CARE)(Performed 11/18/2022) Performed for Malignant neoplasm of central portion of left breast in female, estrogen receptor positive (HCC), Encounter for long-term (current) use of medications * COMPREHENSIVE METABOLIC PANEL(Performed 11/04/2022) Performed for Malignant neoplasm of central portion of left breast in female, estrogen receptor positive (HCC) * MAGNESIUM BLOOD(Performed 11/04/2022) Performed for Malignant neoplasm of central portion of left breast in female, estrogen receptor positive (HCC) * CBC W AUTO DIFFERENTIAL (CANCER CARE)(Performed 11/04/2022) Performed for Malignant neoplasm of central portion of left breast in female, estrogen receptor positive (HCC) * MAGNESIUM BLOOD(Performed 10/28/2022) Performed for Malignant neoplasm of central portion of left breast in female, estrogen receptor positive (HCC) * COMPREHENSIVE METABOLIC PANEL(Performed 10/28/2022) Performed for Malignant neoplasm of central portion of left breast in female, estrogen receptor positive (HCC) * CBC W AUTO DIFFERENTIAL (CANCER CARE)(Performed 10/28/2022) Performed for Malignant neoplasm of central portion of left breast in female, estrogen receptor positive (HCC), Encounter for long-term (current) use of medications * GGT(Performed 10/14/2022) * LIPASE BLOOD(Performed 10/14/2022) * AMYLASE BLOOD(Performed 10/14/2022) * COMPREHENSIVE METABOLIC PANEL(Performed 10/14/2022) Performed for Malignant neoplasm of central portion of left breast in female, estrogen receptor positive (HCC) * MAGNESIUM BLOOD(Performed 10/14/2022) Performed for Malignant neoplasm of central portion of left breast in female, estrogen receptor positive (HCC) * CBC W AUTO DIFFERENTIAL (CANCER CARE)(Performed 10/14/2022) Performed for Malignant neoplasm of central portion of left breast in female, estrogen receptor positive (HCC) * COMPREHENSIVE METABOLIC PANEL(Performed 10/07/2022) Performed for Malignant neoplasm of central portion of left breast in female, estrogen receptor positive (HCC) * MAGNESIUM BLOOD(Performed 10/07/2022) Performed for Malignant neoplasm of central portion of left breast in female, estrogen receptor positive (HCC) * CBC W AUTO DIFFERENTIAL (CANCER CARE)(Performed 10/07/2022) Performed for Malignant neoplasm of central portion of left breast in female, estrogen receptor positive (HCC), Encounter for long-term (current) use of medications * CARDIAC RHYTHM STRIP ORDER(Performed 10/06/2022) * XR CHEST POST PROCEDURE(Performed 10/02/2022) Performed for Malignant neoplasm of central portion of left female breast, unspecified estrogen receptor status (HCC) * FL CENTRAL VENOUS ACCESS DEVICE(Performed 10/02/2022) Performed for Pain * [place] INSJ LEANNE CTR CTR VAD W/SUBQ PORT UNDER 5 YR(Performed 10/02/2022) Performed for Malignant neoplasm of central portion of left female breast, unspecified estrogen receptor status (HCC) * ECHO COMPLETE(Performed 09/29/2022) Performed for Malignant neoplasm of central portion of left breast in female, estrogen receptor positive (HCC) * CARDIAC RHYTHM STRIP ORDER(Performed 09/11/2022) * MAMMO BREAST LEFT SPECIMEN(Performed 09/09/2022) Performed for Malignant neoplasm of central portion of left breast in female, estrogen receptor positive (HCC) * PATHOLOGY TISSUE EXAM (STL)(Performed 09/09/2022) Performed for Malignant neoplasm of central portion of left female breast, unspecified estrogen receptor status (HCC) * LARYNGEAL MASK AIRWAY(Performed 09/09/2022) * AZ MASTECTOMY, PARTIAL(Performed 09/09/2022) Performed for Malignant neoplasm of central portion of left female breast, unspecified estrogen receptor status (HCC) * NM SENTINEL NODE INJECTION(Performed 09/09/2022) Performed for Malignant neoplasm of central portion of left female breast, unspecified estrogen receptor status (HCC) * MRI ABDOMEN WWO CONTRAST(Performed 09/05/2022) Performed for Malignant neoplasm of central portion of left breast in female, estrogen receptor positive (HCC), Liver lesion * NM BONE SCAN WHOLE BODY(Performed 08/24/2022) Performed for Malignant neoplasm of central portion of left breast in female, estrogen receptor positive (HCC) * CT CHEST ABDOMEN PELVIS W CONT(Performed 08/24/2022) Performed for Malignant neoplasm of central portion of left breast in female, estrogen receptor positive (HCC) * US BREAST BILATERAL COMPLETE(Performed 08/13/2022) Performed for Malignant neoplasm of central portion of left breast in female, estrogen receptor positive (HCC) * MAMMO BILAT DIAGNOSTIC W KENYA(Performed 08/13/2022) Performed for Malignant neoplasm of central portion of left breast in female, estrogen receptor positive (HCC) * CBC W AUTO DIFFERENTIAL (CANCER CARE)(Performed 08/07/2022) Performed for Malignant neoplasm of central portion of left breast in female, estrogen receptor positive (HCC), Encounter for long-term (current) use of medications * VITAMIN D 25-HYDROXY(Performed 08/07/2022) Performed for Malignant neoplasm of central portion of left breast in female, estrogen receptor positive (HCC), Encounter for long-term (current) use of medications * LDH BLOOD(Performed 08/07/2022) Performed for Malignant neoplasm of central portion of left breast in female, estrogen receptor positive (HCC) * COMPREHENSIVE METABOLIC PANEL(Performed 08/07/2022) Performed for Malignant neoplasm of central portion of left breast in female, estrogen receptor positive (HCC) * MAMMO LEFT POST CLIP OR WIRE(Performed 07/30/2022) Performed for Subareolar mass of left breast * PATHOLOGY TISSUE EXAM (STL)(Performed 07/30/2022) Performed for Subareolar mass of left breast Results * (ABNORMAL) CARDIOLIPIN ANTIBODY IGG/IGM PANEL (02/03/2024 2:52 PM 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) Only the most recent of2 resultswithin the time period is included. Cardiolipin Antibody IgG <9 0 - 14 GPL U/mL [facility] INSURANCE BILL Comment: Negative: <15 Indeterminate: 15 - 20 Low-Med Positive: >20 - 80 High Positive: >80 Cardiolipin Antibody IgM 26(H) 0 - 12 MPL U/mL [facility] INSURANCE BILL Comment: Negative: <13 Indeterminate: 13 - 20 Low-Med Positive: >20 - 80 High Positive: >80 02/03/2024 2:52 PM 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 02/03/2024 Comment:Blood Release to [facility] INSURANCE BILL - 02/04/2024 3:07 PM 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 Performed at: - [address] [id number] Grease Machine Worker: Blair Michael PhD, Phone: [phone] Taj Childers MD LAB - SEROLOGY ORDER TALI [facility] INSURANCE BILL [address] [place] [address] * C-REACTIVE PROTEIN (02/03/2024 2:52 PM 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) Only the most recent of2 resultswithin the time period is included. Pathologist [facility] C-Reactive Protein 0.23 <=0.50 mg/dL [facility] INSURANCE BILL 02/03/2024 2:52 PM 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 02/03/2024 Comment:Blood Release to pat i Narrative [facility] INSURANCE BILL - 02/03/2024 9:06 PM 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 Performed at: [address] [place] [id number] Grease Machine Worker: Michael Baxter MD, Phone: [phone] Taj Childers MD LAB - CHEMISTRY ORDPrashanth FIORE Performing Organization Address City/[facility]/ZIP Co de Phone Number [facility] INSURANCE BILL [address] [place] [address] * VITAMIN D 25-HYDROXY (02/03/2024 2:52 PM 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) Only the most recent of4 resultswithin the time period is included. Pathologist [facility] Vitamin D, 25 Hydroxy 31.7 30 - 80 ng/mL [facility] INSURANCE BILL Comment: Vitamin D Status: Deficiency <20 ng/mL Insufficiency 20-30 ng/mL Sufficiency 30-100 ng/mL Toxicity >100 ng/mL Blood BLOOD SPECIMEN / Unknown 02/03/2024 2:52 PM 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 02/03/2024 Comment:Blood Release to pat i Narrative [facility] INSURANCE BILL - 02/03/2024 11:06 PM 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 Performed at: [address] [place] [id number] Grease Machine Worker: Michael Baxter MD, Phone: [phone] Taj Childers MD LAB - CHEMISTRY TREMAINE FIORE Performing Organization Address City/[facility]/ZIP Co de Phone Number [facility] INSURANCE BILL [address] [place] [address] * (ABNORMAL) COMPREHENSIVE METABOLIC PANEL (02/03/2024 2:52 PM 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) Only the most recent of26 resultswithin the time period is included. Glucose 86 70 - 99 mg/dL [facility] [...] BLOOD SPECIMEN / Unknown 02/03/2024 2:52 PM 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 02/03/2024 Comment:Blood Release to pat i Narrative [facility] INSURANCE BILL - 02/03/2024 9:06 PM 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 Performed at: [address] [id number] Grease Machine Worker: Michael Baxter MD, Phone: [phone] Taj Childers MD LAB - CHEMISTRY TREMAINE FIORE [facility] Organization Address City/State/ZIP Co de Phone Number [facility] INSURANCE BILL [address] [place] [address] * PHOSPHORUS BLOOD (02/03/2024 2:52 PM 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) Only the most recent of2 resultswithin the time period is included. [facility] Phosphorus 3.2 3.0 - 4.3 mg/dL [facility] INSURANCE BILL 02/03/2024 2:52 PM 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 02/03/2024 Comment:Blood Release to pat i Narrative [facility] INSURANCE BILL - 02/04/2024 11:08 AM 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 Performed at: [address] [place] [id number] Grease Machine Worker: Blair Michael PhD, Phone: [phone] Taj Childers MD LAB - CHEMISTRY TREMAINE FIORE Performing Organization Address City/[facility] Co de Phone Number [facility] INSURANCE BILL [address] [place] [address] * MAGNESIUM BLOOD (02/03/2024 2:52 PM 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) Only the most recent of25 resultswithin the time period is included. Magnesium 2.3 1.6 - 2.6 mg/dL [facility] INSURANCE BILL 02/03/2024 2:52 PM 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 02/03/2024 Comment:Blood Release to pat i Narrative [facility] INSURANCE BILL - 02/03/2024 9:06 PM 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 Performed at: [address] [id number] Grease Machine Worker: Michael Baxter MD, Phone: [phone] Taj Childers MD LAB - CHEMISTRY TREMAINE FIORE Performing Organization Address [facility] Co de Phone Number [facility] INSURANCE BILL [address] [place] [address] * IMMUNOGLOBULINS IGG/IGM/IGA PANEL (02/03/2024 2:52 PM 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) IgG Quantitative 1,108 586 - 1,602 mg/dL [facility] INSURANCE BILL IgA Quantitative 169 64 - 422 mg/dL [facility] INSURANCE BILL IgM Quantitative 136 26 - 217 mg/dL [facility] INSURANCE BILL Blood BLOOD SPECIMEN / Unknown 02/03/2024 2:52 PM 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 02/03/2024 Comment:Blood Release to pat i Narrative [facility] INSURANCE BILL - 02/04/2024 7:07 AM 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 Performed at: [facility] [address] [place] [id number] Grease Machine Worker: Blair Michael PhD, Phone: [phone] Taj Childers MD LAB - CHEMISTRY TREMAINE FIORE Performing Organization Address City/[facility] Co de Phone Number [facility] INSURANCE BILL [address] [place] [address] * (ABNORMAL) CBC W AUTO DIFFERENTIAL (CANCER CARE) (02/03/2024 1:16 PM 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) Only the most recent of26 resultswithin the time period is included. WBC 7.3 4.4 - 10.7 x10E9/L 02/03/2024 1:23 PM 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 [facility] Neutrophils % 73.6(H) 44.0 - 73.0 % 02/03/2024 1:23 PM 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 [facility] Lymphocytes % 17.8(L) 20.0 - 43.0 % 02/03/2024 1:23 PM 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 [facility] Monocytes % 7.6 5.0 - 13.0 % 02/03/2024 1:23 PM 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 [facility] Eosinophils % 0.0 0.0 - 6.0 % 02/03/2024 1:23 PM 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 [facility] Basophils % 0.3 0.0 - 2.0 % 02/03/2024 1:23 PM 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 [facility] Immature Granulocytes 0.7 <=1 % 02/03/2024 1:23 PM 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 [facility] Neutrophil Absolute 5.35 2.01 - 7.14 x10E9/L 02/03/2024 1:23 PM 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 [facility] Lymphocytes Absolute 1.29 1.07 - 3.94 x10E9/L 02/03/2024 1:23 PM 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 [facility] Monocytes Absolute 0.55 0.26 - 1.07 x10E9/L 02/03/2024 1:23 PM 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 [facility] Eosinophils Absolute 0.00 0 - 0.47 x10E9/L 02/03/2024 1:23 PM 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 [facility] Basophils Absolute 0.02 0 - 0.08 x10E9/L 02/03/2024 1:23 PM 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 [facility] RBC 3.74(L) 3.80 - 5.20 x10E12/L 02/03/2024 1:23 PM 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 [facility] Hemoglobin 11.7(L) 12.0 - 15.6 gm/dL 02/03/2024 1:23 PM 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 [facility] Hematocrit 34.3(L) 35.9 - 45.5 % 02/03/2024 1:23 PM 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 [facility] MCV 91.7 80.7 - 98.3 fl 02/03/2024 1:23 PM 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 [facility] STM MCH 31.3 26.7 - 34.0 pg 02/03/2024 1:23 PM 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 [facility] STM MCHC 34.1 30.8 - 35.9 gm/dL 02/03/2024 1:23 PM 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 [facility] RDW-CV 16.0(H) 12.1 - 14.9 % 02/03/2024 1:23 PM 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 [facility] Platelet Count 250 153 - 416 x10E9/L 02/03/2024 1:23 PM [facility] MPV 8.5(L) 9.4 - 12.9 fl 02/03/2024 1:23 PM [facility] STM NRBC 0.0 <=0 /100 WBC 02/03/2024 1:23 PM [facility] Blood BLOOD SPECIMEN / Unknown 02/03/2024 1:16 PM 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 02/03/2024 1:16 PM 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 Taj Childers MD LAB - HEMATOLOGY ORD ERABLES [facility] CC LAB [facility] [address] * AMB REFERRAL TO RHEUMATOLOGY (11/18/2023 3:07 PM CDT) Taj Childers MD OUTPATIENT REFERRALS * LUPUS ANTICOAGULANT PANEL (11/03/2023 1:45 PM CDT) Dilute Prothrombin Time 38.5 0.0 - 47.6 sec [facility] INSURANCE BILL dPT Confirm Ratio 1.03 0.00 - 1.34 Ratio [facility] INSURANCE BILL Thrombin Time 18.7 0.0 - 23.0 sec [facility] INSURANCE BILL PTT-LA 37.6 0.0 - 43.5 sec [facility] INSURANCE BILL dRVVT 40.1 0.0 - 47.0 sec [facility] INSURANCE BILL Interpretation Comment: [facility] INSURANCE BILL Comment:No lupus anticoagula nt was detected. Blood BLOOD SPECIMEN / Unknown 11/03/2023 1:45 PM CDT 11/03/2023 Comment:Blood Release to pat i Narrative [facility] INSURANCE BILL - 11/05/2023 6:12 AM CDT Performed at: - [address] [id number] Grease Machine Worker: Raymond Montez MD, Phone: [phone] Taj Childers MD LAB - HEMATOLOGY ORD ERABLES [facility] INSURANCE BILL [address] [place] [address] * BETA-2 GLYCOPROTEIN 1 ANTIBODY IGG/IGM PANEL (11/03/2023 1:45 PM CDT) [facility] Beta-2 Glycoprotein I Antibody IgG <9 0 - 20 GPI IgG units [facility] INSURANCE BILL Comment: The reference interval reflects a 3SD or 99th percentile interval, which is thought to represent a potentially clinically significant result in accordance with the International Consensus Statement on the classification criteria for definitive antiphospholipid syndrome (APS). J Thromb Haem 2006;4:295-306. Beta-2 Glycoprotein I Antibody IgM 22 0 - 32 GPI IgM units [facility] INSURANCE BILL Comment: The reference interval reflects a 3SD or 99th percentile interval, which is thought to represent a potentially clinically significant result in accordance with the International Consensus Statement on the classification criteria for definitive antiphospholipid syndrome (APS). J Thromb Haem 2006;4:295-306. Blood BLOOD SPECIMEN / Unknown 11/03/2023 1:45 PM CDT 11/03/2023 Comment:Blood Release to pat i Narrative [facility] INSURANCE BILL - 11/04/2023 3:09 PM CDT Performed at: - [facility] [address] [place] [id number] Grease Machine Worker: Blair Michael PhD, Phone: [phone] Taj Childers MD LAB - CHEMISTRY ORDE ADEBAYO Performing Organization Address City/[facility]/ZIP Co de Phone Number [facility] INSURANCE BILL [address] [place] [address] * NM Bone Scan Whole Body (10/25/2023 12:24 PM CDT) Only the most recent of2 resultswithin the time period is included. Anatomical Region Laterality Modality Abdomen Nuclear Medicine 10/25/2023 1:08 PM CDT Impressions 10/25/2023 1:09 PM CDT IMPRESSION: 1. No scintigraphic evidence of osseous metastasis. 2. Degenerative changes as above. > Interpreting Provider: Dharmesh Harris DO on 10/25/2023 1:09 PM Narrative 10/25/2023 1:09 PM CDT PROCEDURE: NM BONE SCAN WHOLE BODY DATE/TIME OF EXAM: 10/25/2023 12:25 PM CLINICAL INFORMATION: None relevant/not provided if blank. Indication: C50.112: Malignant neoplasm of central portion of left female breast (HCC) Z17.0: Estrogen receptor positive status (ER+) COMPARISON: Bone scan dated 08/24/[address] dated 10/25/2023 HISTORY: 73-year-old with breast cancer. TECHNIQUE: The patient was injected with 25.0 mCi of [id number] MDP IV in the right antecubital fossa. Anterior and posterior whole body images were obtained after 3 hours. Additional images of the chest were also obtained. FINDINGS: Subtle increased radiotracer activity in the mid to lower thoracic spine, likely degenerative. There is otherwise grossly homogenous uptake throughout the remaining spine without focal abnormality. Mild degenerative changes in the bilateral shoulders, hips, knees and feet. The biodistribution of radiopharmaceutical is normal. Procedure Note Dharmesh Harris DO - 10/25/2023 PROCEDURE: NM BONE SCAN WHOLE BODY DATE/TIME OF EXAM: 10/25/2023 12:25 PM CLINICAL INFORMATION: None relevant/not provided if blank. Indication: C50.112: Malignant neoplasm of central portion of leftfemale breast (HCC) Z17.0: Estrogen receptor positive status (ER+) COMPARISON: Bone scan dated 08/24/[address] dated 10/25/2023 HISTORY: 73-year-old with breast cancer. TECHNIQUE: The patient was injected with 25.0 mCi of [id number] MDPIV in the right antecubital fossa. Anterior and posterior whole body images were obtained after 3 hours. Additional images of the chest were also obtained. FINDINGS: Subtle increased radiotracer activity in the mid to lower thoracic spine, likely degenerative. There is otherwise grosslyhomogenous uptake throughout the remaining spine without focal abnormality. Mild degenerative changes in the bilateral shoulders, hips, knees and feet.The biodistribution of radiopharmaceutical is normal. IMPRESSION: 1. No scintigraphic evidence of osseous metastasis. 2. Degenerative changes as above. > Interpreting Provider: Dharmesh Harris DO on 10/25/2023 1:09 PM Taj Childers MD NM ORDERABLES * CT THORAX ABDOMEN PELVIS W CONT (10/25/2023 12:03 PM CDT) Only the most recent of2 resultswithin the time period is included. Anatomical Region Laterality Modality Chest, Abdomen, Pelvis Computed Tomography 10/25/2023 12:2 2 PM CDT Impressions 10/25/2023 12:36 PM CDT IMPRESSION: 1. No chest mass or adenopathy. 2. Chronic left breast postop changes. CT abdomen and pelvis: Overall liver size and enhancement is normal. Several chronic hepatic cysts are unchanged and were evaluated in more detail on the prior MRI. No suspicious hepatic lesion. The portal and hepatic veins are patent. The gallbladder is unremarkable and there is no dilatation of the biliary tree or common duct. The pancreas and pancreatic duct are normal. The spleen is normal. Adrenal glands are normal. The kidneys are normal in size and enhancement and contain several simple cysts measuring no more than 1 cm. The abdominal aorta is mildly atherosclerotic and normal in size. The IVC is unremarkable. There is no retroperitoneal or iliac chain adenopathy. Small hiatus hernia is noted. The stomach is unremarkable. The duodenum and small bowel are normal. The terminal ileum is normal. Scattered stool in colon without obstructive or inflammatory changes. The uterus remains enlarged and lobulated indicating fibroids measuring up to 5 cm. The ovaries are not enlarged. No free fluid, free air or abscess. No significant bony findings. IMPRESSION: 1. No abdominal or pelvic metastasis or adenopathy. 2. Chronic uterine fibroids. > Interpreting Provider: Femi Polo MD on 10/25/2023 12:36 PM Narrative 10/25/2023 12:36 PM CDT PROCEDURE: CT CHEST ABDOMEN PELVIS W CONT DATE/TIME OF EXAM: 10/25/2023 12:03 PM CLINICAL INFORMATION: None relevant/not provided if blank. Indication: C50.112: Malignant neoplasm of central portion of left female breast (HCC) Z17.0: Estrogen receptor positive status (ER+) Additional History: COMPARISON: Body CT from 08/24/2022 and abdominal MRI from 09/05/2022 TECHNIQUE: CT of the chest, abdomen and pelvis was performed following intravenous contrast utilizing standard protocol. CT dose reduction technique was used, including Automated Exposure Control. CONTRAST: IOPAMIDOL 76 % IV SOLN:100 mL FINDINGS: CT chest: There is no pulmonary mass or suspicious nodule. Incidental linear atelectasis in the lingula. There are a few calcified granulomas. No pneumonia or pleural effusion. The heart size is normal and without pericardial effusion. Localized calcified plaque in the left coronary arteries. No significant mediastinal or axillary adenopathy. Chronic postop changes in the left breast and axilla. There are several subcentimeter chronic cysts in the thyroid. Incidental metallic anchors in both humeral heads. 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 Procedure Note Femi Polo MD - 10/25/2023 PROCEDURE: CT CHEST ABDOMEN PELVIS W CONT DATE/TIME OF EXAM: 10/25/2023 12:03 PM CLINICAL INFORMATION: None relevant/not provided if blank. Indication: C50.112: Malignant neoplasm of central portion of leftfemale breast (HCC) Z17.0: Estrogen receptor positive status (ER+) Additional History: COMPARISON: Body CT from 08/24/2022 and abdominal MRI from 09/05/2022 TECHNIQUE: CT of the chest, abdomen and pelvis was performed following intravenous contrast utilizing standard protocol. CT dose reduction technique was used, including Automated ExposureControl. CONTRAST: IOPAMIDOL 76 % IV SOLN:100 mL FINDINGS: CT chest: There is no pulmonary mass or suspicious nodule. Incidental linear atelectasis in the lingula. There are a few calcified granulomas. No pneumonia or pleural effusion. The heart size is normal and without pericardial effusion. Localized calcified plaque in the left coronary arteries. No significantmediastinal or axillary adenopathy. Chronic postop changes in the left breast and axilla. There are several subcentimeter chronic cysts in the thyroid. Incidental metallic anchorsin both humeral heads. Chronic degenerative disc disease in themidthoracic spine. IMPRESSION: 1. No chest mass or adenopathy. 2. Chronic left breast postop changes. CT abdomen and pelvis: Overall liver size and enhancement is normal. Several chronic hepatic cysts are unchanged and were evaluated in more detail on the prior MRI.No suspicious hepatic lesion. The portal and hepatic veins are patent.The gallbladder is unremarkable and there is no dilatation of the biliarytree or common duct. The pancreas and pancreatic duct are normal. Thespleen is normal. Adrenal glands are normal. The kidneys are normal in sizeand enhancement and contain several simple cysts measuring no more than 1cm. The abdominal aorta is mildly atherosclerotic and normal in size. TheIVC is unremarkable. There is no retroperitoneal or iliac chain adenopathy. Small hiatus hernia is noted. The stomach is unremarkable. Theduodenum and small bowel are normal. The terminal ileum is normal. Scatteredstool in colon without obstructive or inflammatory changes. The uterus remains enlarged and lobulated indicating fibroids measuringup to 5 cm. The ovaries are not enlarged. No free fluid, free air or abscess. No significant bony findings. IMPRESSION: 1. No abdominal or pelvic metastasis or adenopathy. 2. Chronic uterine fibroids. > Interpreting Provider: Femi Polo MD on 10/25/2023 12:36 PM Taj Childers MD CT ORDERABLES * (ABNORMAL) MARY CARMEN 12 PLUS PROFILE (10/06/2023 12:00 AM CDT) MARY CARMEN Pattern IFA Positive(A ) Negative [facility] ACCOUNT BILL Comment: Performed at: 01 - [facility] [address] [place] [phone] Grease Machine Worker: Fortunato Arrington MD, Phone: [phone] Speckled Pattern 1:160(H) <1:40 [facility] ACCOUNT BILL Note Comment [facility] ACCOUNT BILL Comment:MARY CARMEN performed by Ind irect Fluorescent Antibody (IFA) Anti-Centromere Antibody <1:40 <1:40 [facility] ACCOUNT BILL Anti-dsDNA <8.0 <8.0 IU/mL [facility] ACCOUNT BILL Anti-Sm Ab <20 <20 Units [facility] ACCOUNT BILL Anti-U1 COGNOS LEAD By EIA <20 <20 Units [facility] ACCOUNT BILL Anti-Ro (SS-A) Ab (RDL) <20 <20 Units [facility] ACCOUNT BILL SS-B LA Antibody <20 <20 Units [facility] ACCOUNT BILL Anti SCL-70 Antibody <20 <20 Units [facility] ACCOUNT BILL Cardiolipin Antibody IgG 16 <15 GPL U/mL [facility] ACCOUNT BILL Cardiolipin Antibody IgA <12 <12 APL U/mL [facility] ACCOUNT BILL Cardiolipin Antibody IgM 34(H) <13 MPL U/mL [facility] ACCOUNT BILL Complement C3 202(H) 82 - 167 mg/dL [facility] ACCOUNT BILL Complement C4 46(H) 14 - 44 mg/dL [facility] ACCOUNT BILL Thyroid Peroxidase TPO Antibody <9.0 <9.0 IU/mL [facility] ACCOUNT BILL Anti-Chromatin Ab IgG 25(H) <20 Units [facility] ACCOUNT BILL Anti-CCP IgG & IgA <20 <20 Units [facility] ACCOUNT BILL Rheumatoid Factor 23(H) <14 IU/mL [facility] ACCOUNT BILL Interpretation MARY CARMEN Plus 12 Comment [facility] ACCOUNT BILL Comment: Interpretation for Anti-Sm, Anti-U1 COGNOS LEAD, Anti-Ro, Anti-La: Negative: <20 Weak Positive: 20 - 39 Moderate Positive: 40 - 80 Strong Positive: >80 Interpretation for Anti-CCP Ab, IgG / IgA: Negative: <20 Weak Positive: 20 - 39 Moderate Positive: 40 - 59 Strong Positive: >59 Interpretation for Anti-Cardiolipin Ab: Negative: GPL <15, APL <12, MPL <13 Indeterminate: GPL 15-20, APL 12-20, MPL 13-20 Low Positive: GPL, APL, MPL >20 - 40 Med Positive: GPL, APL, MPL >40 - 80 High Positive: GPL, APL, MPL >80 SLE classification criteria are based on Med to High titer (>40) Anti-Cardiolipin Ab (aCL). aCL may be elevated transiently with certain infections and may increase spuriously in the presence of rheumatoid factor. 10/06/2023 10/06/2023 Narrative [facility] ACCOUNT BILL - 10/30/2023 3:08 PM CDT Test(s) [id number]-Atexiff Ab by IFA (RDL); [id number]-Xhmtfsfq Pattern; [id number]-Grtf-bxOAX Ab by Kalyani(RDL); [id number]- Anti-CCP Ab, IgG + IgA (RDL) was developed and its performance characteristics determined by [facility]. It has not been cleared or approved by the Food and Drug Administration. Performed at: 01 - [facility] [address] [place] [address] [id number] Grease Machine Worker: Fortunato Arrington MD, Phone: [phone] Taj Childers MD LAB - CHEMISTRY TREMAINE FIORE Performing Organization Address City/[facility]/ZIP Co de Phone Number [facility] ACCOUNT BILL [address] [place] [address] * (ABNORMAL) CARLOS STAINING PATTERNS REFLEXED (09/15/2023 2:01 PM CDT) Homogeneous Pattern 1:160(A) <1:80 [facility] INSURANCE BILL Comment: Methodology: Indirect Immunofluorescence Assay (IFA) [facility] Hep-2-Gamma cells. Nucleolar Pattern 1:160(A) <1:80 [facility] INSURANCE BILL 09/15/2023 2:01 PM CDT 09/15/2023 Narrative Resulting Agency Comment Lab Testing performed at: [address] [phone] Taj Childers MD LAB - PATHOLOGY/CYTO LOGY ORDERABLES Performing Organization Address [facility] Co de Phone Number [facility] INSURANCE BILL [address] [place] [address] * RHEUMATOID FACTOR BLOOD QUANTITATIVE (09/15/2023 2:01 PM CDT) Rheumatoid Factor 25 <30 IU/mL [facility] INSURANCE BILL Blood BLOOD SPECIMEN / Unknown 09/15/2023 2:01 PM CDT 09/15/2023 Narrative Resulting Agency Comment Lab Testing performed at: [address] [phone] Taj Childers MD LAB - CHEMISTRY TREMAINE FIORE [facility] INSURANCE BILL [address] [place] [address] * (ABNORMAL) MARY CARMEN BLOOD SCREEN W/REFLEX TITER (09/15/2023 2:01 PM CDT) MARY CARMEN Positive (A) Negative [facility] INSURANCE BILL Comment: Methodology: Indirect Immunofluorescence Assay (IFA) myra Hep-2-Gamma cells. Blood BLOOD SPECIMEN / Unknown 09/15/2023 2:01 PM CDT 09/15/2023 Narrative Resulting Agency Comment Lab Testing performed at: [address] [phone] Taj Childers MD LAB - CHEMISTRY TREMAINE FIORE Performing Organization Address [facility] Co de Phone Number [facility] INSURANCE BILL [address] [place] [address] * ERYTHROCYTE SEDIMENTATION RATE (09/15/2023 2:01 PM CDT) Pathologist [facility] Erythrocyte Sedimentation Rate Westergren 18 0 - 30 MM/HR [facility] INSURANCE BILL Blood BLOOD SPECIMEN / Unknown 09/15/2023 2:01 PM CDT 09/15/2023 Narrative Resulting Agency Comment Lab Testing performed at: [address] [phone] Taj Childers MD LAB - HEMATOLOGY ORD ERABLES Performing Organization Address City/[facility]/ZIP Co de Phone Number [facility] INSURANCE BILL [address] [place] [address] * CK BLOOD (09/15/2023 2:01 PM CDT) Pathologist [facility] CK 115 29 - 168 U/L [facility] INSURANCE BILL Blood BLOOD SPECIMEN / Unknown 09/15/2023 2:01 PM CDT 09/15/2023 Narrative Resulting Agency Comment Lab Testing performed at: [address] [phone] Taj Childers MD LAB - CHEMISTRY TREMAINE FIORE [facility] INSURANCE BILL [address] [place] [address] * ECHO COMPLETE W CONTRAST (09/09/2023 3:55 PM CDT) Only the most recent of4 resultswithin the time period is included. LV EDV A2C 63.5 ml SSM CV FU JI PACS LV EDV A4C 83.3 ml SSM CV FU JI PACS LV ESV A2C 18.6 ml SSM CV FU JI PACS LV ESV A4C 35.7 ml SSM CV FU JI PACS IVSd 2D 1 cm SSM CV FUJ I PACS LVIDd 4.45 cm SSM CV FUJ I PACS LVIDs 3.06 cm SSM CV FUJ I PACS LVOT diam 1.7 cm SSM CV FUJ I PACS LVOT VTI 26.5 cm SSM CV FUJ I PACS LVOT pk tio 127 cm/s SSM CV F UJI PACS LVPWd 1.02 cm SSM CV FUJ I PACS MV E' lateral tio 8.55 cm/s SSM CV FUJI PACS GLS -15.9 % SSM CV FUJ I PACS LV A2C EF 70.709 % SSM CV FUJ I PACS LV A4C EF 57.143 % SSM CV FUJ I PACS LV biplane EF 64.12 % SSM CV FUJI PACS LA vol BP 50.1 ml SSM CV FUJ I PACS LA size 3 cm SSM CV FUJ I PACS LA vol index 0.03 l/m SSM CV FUJI PACS AV PHT 0.377 s SSM CV FUJ I PACS AV pk tio regurg 445 cm/s SSM CV FUJI PACS AV pk tio 144 cm/s SSM CV FUJ I PACS AV mn grad 5 mmHg SSM CV FU JI PACS AV VTI 29.4 cm SSM CV FUJ I PACS IVC Diam Expiration 1.47 cm SSM CV FUJI PACS MV A pk tio 117 cm/s SSM CV F UJI PACS MV E pk tio 80.1 cm/s SSM CV F UJI PACS PV pk tio 100 cm/s SSM CV FUJ I PACS TAPSE 1.97 cm SSM CV FUJ I PACS TR pk tio 221 cm/s SSM CV [employer] I PACS Myocardial strain charge 1 unitless SSM CV FUJI PACS Anatomical Region Laterality Modality Ultrasound 09/09/2023 2:50 PM CDT Narrative 09/09/2023 5:03 PM CDT Summary * The left ventricle is normal in size. * Left ventricular systolic function is normal with an estimated ejection fraction of 64% by biplane method of disks. * Left ventricular segmental wall motion is normal. * The left ventricular diastolic function is consistent with grade I diastolic dysfunction. * Left ventricular wall thickness is borderline increased. * Global longitudinal strain of the left ventricle is -15.9% (normal > 18%). Mildly reduced global strain, but no significant pattern. * The right ventricle is normal in size. * Right ventricular systolic function is normal. * There is mild and mild to moderate aortic valve regurgitation. * There is mild mitral valve regurgitation. * There is mild tricuspid valve regurgitation. * The pulmonary artery systolic pressure is normal, 23 mmHg. Patient Info Name: Zaida Flores Age: 73 years : 1950 Gender: Female Ht: 62 in Wt: 136 lb BSA: 1.65 m2 HR: 74 bpm BP: 132 / 73 mmHg Exam Date: 09/09/2023 2:50 PM Patient Status: O/P Study Site: [facility] Primary Location: [facility] EStudy Info Technical Quality: Fair Exam Type: ECHO COMPLETE W CONTRAST Indications C50.112 - Malignant neoplasm of central portion of left female breast, unspecified estrogen receptor status (HCC) Z79.811 - Aromatase inhibitor use Z92.29 - Hx of high risk medication treatment Procedure(s) * A complete 2D, color Doppler, spectral Doppler and M-Mode transthoracic echocardiogram was performed with an Ultrasound Enhancing Agent (UEA) and Strain. * Strain imaging performed per cardiology department protocol to evaluate and/or monitor myocardial function. Staff Referring Physician: Lori Rodríguez Ordering Provider: Lori Rodríguez Attending Physician: Raymon Juarez Chiropractic Physician: Rahel Hoyt Left Ventricle The left ventricle is normal in size. Left ventricular systolic function is normal with an estimated ejection fraction of 64% by biplane method of disks. Left ventricular segmental wall motion is normal. The left ventricular diastolic function is consistent with grade I diastolic dysfunction. Left ventricular wall thickness is borderline increased. Global longitudinal strain of the left ventricle is -15.9% (normal > 18%). Mildly reduced global strain, but no significant pattern. Right Ventricle The right ventricle is normal in size. Right ventricular systolic function is normal. Left Atrium The left atrium is normal in size with a left atrial volume index of 30 ml/m2 by BP MOD. Right Atrium The right atrium is normal in size. Aortic Valve The aortic valve is trileaflet. There is no aortic valve stenosis. There is mild and mild to moderate aortic valve regurgitation. Pulmonic Valve The pulmonic valve is normal. There is no pulmonic valve stenosis. There is no pulmonic regurgitation. Mitral Valve The mitral valve is normal. There is no mitral valve stenosis. There is mild mitral valve regurgitation. Tricuspid Valve The tricuspid valve is normal. There is mild tricuspid valve regurgitation. The pulmonary artery systolic pressure is normal, 23 mmHg. Inferior Vena Cava The inferior vena cava is normal in size (< 2.1 cm). There is > 50% collapse of the IVC upon inspiration with an estimated right atrial pressure of 3 mmHg. Pericardium/Pleural There is no pericardial effusion. Aorta The aortic root at the sinus of Valsalva is normal in size. The ascending aorta is normal in size. Measurements Left Ventricular Outflow Tract Name Value Normal LVOT 2D LVOT Diameter 1.7 cm LVOT Area 2.3 cm2 LVOT Doppler LVOT Peak Velocity 1.3 m/s LVOT Peak Gradient 6 mmHg LVOT Mean Velocity 98.50 cm/s LVOT Mean Gradient 4 mmHg LVOT VTI 26.5 cm LVOT VTI/AV VTI Ratio 0.9 LVOT Stroke Volume 60 ml LVOT Stroke Volume Index 36 ml/m2 35-58 Pulmonic Valve Name Value Normal PV Doppler PV Peak Velocity 1.0 m/s PV Peak Gradient 4 mmHg PV Accel Time 135.00 ms Mitral Valve Name Value Normal MV Doppler MV PHT 75 ms MV Area (PHT) 2.93 cm2 4.00-5.00 MV Diastolic Function MV E Peak Velocity 0.8 m/sec MV A Peak Velocity 1.2 m/sec MV E/A 0.7 MV Decel Time (PW) 257 ms MV Annular TDI MV Septal e' Velocity 6 cm/s >=8 MV E/e' (Septal) 13 <=8 MV Lateral e' Velocity 9 cm/s >=10 MV E/e' (Lateral) 9 <=8 MV e' Average 7 cm/s MV E/e' (Average) 11 Tricuspid Valve Name Value Normal TV Regurgitation Doppler TR Peak Velocity 2.2 m/s TR Peak Gradient 18 mmHg Estimated PAP/RSVP RA Pressure 3 mmHg <=5 PA Systolic Pressure 23 mmHg <35 RV Systolic Pressure 23 mmHg <36 TV Annular TDI TV Lateral Jeanette s' Velocity 12 cm/s 10-19 Aorta Name Value Normal Ascending Aorta Ao Root Diameter (2D) 3.4 cm Ao Root Diam Index (2D) 2.1 cm/m2 Venous Name Value Normal IVC/SVC IVC Diameter 1.5 cm <=2.1 Aortic Valve Name Value Normal AV Doppler AV Peak Velocity 1.44 m/s AV Peak Gradient 8 mmHg AV Mean Gradient 5 mmHg AV VTI 29 cm AV Area (Cont Eq VTI) 2.05 cm2 >=2.00 AV Area Index (Cont Eq VTI) 1.24 cm2/m2 AV Area (Cont Eq Tio) 2.00 cm2 AV Area Index (Cont Eq Tio) 1.21 cm2/m2 AV DI (Tio) 0.88 AV Regurgitation 2D LVOT Area 2.27 cm2 AV Regurgitation Doppler AR Peak Velocity 4.5 m/s AR Peak Gradient 73 mmHg AR PHT 377 ms Ventricles Name Value Normal LV Dimensions 2D/MM IVS Diastolic Thickness (2D) 1.0 cm 0.6-0.9 LVID Diastole (2D) 4.5 cm 3.8-5.2 LVPW Diastolic Thickness (2D) 1.0 cm 0.6-0.9 LVID Systole (2D) 3.1 cm 2.2-3.5 LV Mass (2D Cubed) 153 g 67-162 LV Mass Index (2D Cubed) 92 g/m2 43-95 Relative Wall Thickness (2D) 0.46 <=0.42 LV Fractional Shortening/Ejection Fraction 2D/MM LV Fractional Shortening (2D) 31 % 27-45 LV EF (2D Teicholz) 59 % 54-74 LV Diastolic Volume (4C MOD) 83 ml LV Systolic Volume (4C MOD) 36 ml LV EF (4C MOD) 57 % LV Diastolic Volume (2C MOD) 64 ml LV Systolic Volume (2C MOD) 19 ml LV EF (2C MOD) 71 % LV Diastolic Volume (BP MOD) 73 ml 46-106 LV Diastolic Volume Index (BP MOD) 44 ml/m2 29-61 LV Systolic Volume (BP MOD) 26 ml 14-42 LV Systolic Volume Index (BP MOD) 16 ml/m2 8-24 LV EF (BP MOD) 64 % 54-74 LV Diastolic Length (4C) 7.6 cm LV Systolic Length (4C) 6.5 cm LV Stroke Volume (4C MOD) 48 ml LV Global Longitudinal Strain -16 % RV Dimensions 2D/MM TAPSE 2.0 cm >=1.7 Atria Name Value Normal LA Dimensions LA Dimension (2D) 3.0 cm 2.7-3.8 LA Dimen Index (2D) 1.8 cm/m2 LA Area (4C) 17 cm2 LA Length (4C) 5.1 cm LA Area (2C) 19 cm2 LA Length (2C) 5.1 cm LA Volume (4C MOD) 46 ml LA Volume (2C MOD) 55 ml LA Volume (4C A-L) 50 ml LA Volume (2C A-L) 57 ml LA Volume (BP A-L) 53 ml LA Volume Index (BP A-L) 32 ml/m2 16-34 LA Volume (BP MOD) 50 ml LA Volume Index (BP MOD) 30 ml/m2 16-34 Report Signatures Finalized by Valeria Byrd on 09/09/2023 05:03 PM Procedure Note Valeria Byrd, DO - 09/09/2023 Summary * The left ventricle is normal in size. * Left ventricular systolic function is normal with an estimatedejection fraction of 64% by biplane method of disks. * Left ventricular segmental wall motion is normal. * The left ventricular diastolic function is consistent with grade I diastolic dysfunction. * Left ventricular wall thickness is borderline increased. * Global longitudinal strain of the left ventricle is -15.9% (normal >18%). Mildly reduced global strain, but no significant pattern. * The right ventricle is normal in size. * Right ventricular systolic function is normal. * There is mild and mild to moderate aortic valve regurgitation. * There is mild mitral valve regurgitation. * There is mild tricuspid valve regurgitation. * The pulmonary artery systolic pressure is normal, 23 mmHg. Patient Info Name: Zaida Flores Age: 73 years : 1950 Gender: Female Ht: 62 in Wt: 136 lb BSA: 1.65 m2 HR: 74 bpm BP: 132 / 73 mmHg Exam Date: 09/09/2023 2:50 PM Patient Status: O/P Study Site: [facility] Primary Location: [facility] EStudy Info Technical Quality: Fair Exam Type: ECHO COMPLETE W CONTRAST Indications C50.112 - Malignant neoplasm of central portion of left femalebreast, unspecified estrogen receptor status (HCC) Z79.811 - Aromatase inhibitor use Z92.29 - Hx of high risk medication treatment Procedure(s) * A complete 2D, color Doppler, spectral Doppler and M-Modetransthoracic echocardiogram was performed with an Ultrasound Enhancing Agent (UEA)and Strain. * Strain imaging performed per cardiology department protocol toevaluate and/or monitor myocardial function. Staff Referring Physician: Lori Rodríguez Ordering Provider: Lori Rodríguez Attending Physician: Raymon Juarez Chiropractic Physician: Rahel Hoyt Left Ventricle The left ventricle is normal in size. Left ventricular systolic functionis normal with an estimated ejection fraction of 64% by biplane method ofdisks. Left ventricular segmental wall motion is normal. The left ventricular diastolic function is consistent with grade I diastolic dysfunction.Left ventricular wall thickness is borderline increased. Global longitudinalstrain of the left ventricle is -15.9% (normal > 18%). Mildly reduced globalstrain, but no significant pattern. Right Ventricle The right ventricle is normal in size. Right ventricular systolicfunction is normal. Left Atrium The left atrium is normal in size with a left atrial volume index of30 ml/m2 by BP MOD. Right Atrium The right atrium is normal in size. Aortic Valve The aortic valve is trileaflet. There is no aortic valve stenosis. Thereis mild and mild to moderate aortic valve regurgitation. Pulmonic Valve The pulmonic valve is normal. There is no pulmonic valve stenosis. Thereis no pulmonic regurgitation. Mitral Valve The mitral valve is normal. There is no mitral valve stenosis. There ismild mitral valve regurgitation. Tricuspid Valve The tricuspid valve is normal. There is mild tricuspid valveregurgitation. The pulmonary artery systolic pressure is normal, 23 mmHg. Inferior Vena Cava The inferior vena cava is normal in size (< 2.1 cm). There is > 50%collapse of the IVC upon inspiration with an estimated right atrial pressure of 3mmHg. Pericardium/Pleural There is no pericardial effusion. Aorta The aortic root at the sinus of Valsalva is normal in size. Theascending aorta is normal in size. Measurements Left Ventricular Outflow Tract Name Value Normal LVOT 2D LVOT Diameter 1.7 cm LVOT Area 2.3 cm2 LVOT Doppler LVOT Peak Velocity 1.3 m/s LVOT Peak Gradient 6 mmHg LVOT Mean Velocity 98.50 cm/s LVOT Mean Gradient 4 mmHg LVOT VTI 26.5 cm LVOT VTI/AV VTI Ratio 0.9 LVOT Stroke Volume 60 ml LVOT Stroke Volume Index 36 ml/m2 35-58 Pulmonic Valve Name Value Normal PV Doppler PV Peak Velocity 1.0 m/s PV Peak Gradient 4 mmHg PV Accel Time 135.00 ms Mitral Valve Name Value Normal MV Doppler MV PHT 75 ms MV Area (PHT) 2.93 cm2 4.00-5.00 MV Diastolic Function MV E Peak Velocity 0.8 m/sec MV A Peak Velocity 1.2 m/sec MV E/A 0.7 MV Decel Time (PW) 257 ms MV Annular TDI MV Septal e' Velocity 6 cm/s >=8 MV E/e' (Septal) 13 <=8 MV Lateral e' Velocity 9 cm/s >=10 MV E/e' (Lateral) 9 <=8 MV e' Average 7 cm/s MV E/e' (Average) 11 Tricuspid Valve Name Value Normal TV Regurgitation Doppler TR Peak Velocity 2.2 m/s TR Peak Gradient 18 mmHg Estimated PAP/RSVP RA Pressure 3 mmHg <=5 PA Systolic Pressure 23 mmHg <35 RV Systolic Pressure 23 mmHg <36 TV Annular TDI TV Lateral Jeanette s' Velocity 12 cm/s 10-19 Aorta Name Value Normal Ascending Aorta Ao Root Diameter (2D) 3.4 cm Ao Root Diam Index (2D) 2.1 cm/m2 Venous Name Value Normal IVC/SVC IVC Diameter 1.5 cm <=2.1 Aortic Valve Name Value Normal AV Doppler AV Peak Velocity 1.44 m/s AV Peak Gradient 8 mmHg AV Mean Gradient 5 mmHg AV VTI 29 cm AV Area (Cont Eq VTI) 2.05 cm2 >=2.00 AV Area Index (Cont Eq VTI) 1.24 cm2/m2 AV Area (Cont Eq Tio) 2.00 cm2 AV Area Index (Cont Eq Tio) 1.21 cm2/m2 AV DI (Tio) 0.88 AV Regurgitation 2D LVOT Area 2.27 cm2 AV Regurgitation Doppler AR Peak Velocity 4.5 m/s AR Peak Gradient 73 mmHg AR PHT 377 ms Ventricles Name Value Normal LV Dimensions 2D/MM IVS Diastolic Thickness (2D) 1.0 cm 0.6-0.9 LVID Diastole (2D) 4.5 cm 3.8-5.2 LVPW Diastolic Thickness (2D) 1.0 cm 0.6-0.9 LVID Systole (2D) 3.1 cm 2.2-3.5 LV Mass (2D Cubed) 153 g 67-162 LV Mass Index (2D Cubed) 92 g/m2 43-95 Relative Wall Thickness (2D) 0.46 <=0.42 LV Fractional Shortening/Ejection Fraction 2D/MM LV Fractional Shortening (2D) 31 % 27-45 LV EF (2D Teicholz) 59 % 54-74 LV Diastolic Volume (4C MOD) 83 ml LV Systolic Volume (4C MOD) 36 ml LV EF (4C MOD) 57 % LV Diastolic Volume (2C MOD) 64 ml LV Systolic Volume (2C MOD) 19 ml LV EF (2C MOD) 71 % LV Diastolic Volume (BP MOD) 73 ml 46-106 LV Diastolic Volume Index (BP MOD) 44 ml/m2 29-61 LV Systolic Volume (BP MOD) 26 ml 14-42 LV Systolic Volume Index (BP MOD) 16 ml/m2 8-24 LV EF (BP MOD) 64 % 54-74 LV Diastolic Length (4C) 7.6 cm LV Systolic Length (4C) 6.5 cm LV Stroke Volume (4C MOD) 48 ml LV Global Longitudinal Strain -16 % RV Dimensions 2D/MM TAPSE 2.0 cm >=1.7 Atria Name Value Normal LA Dimensions LA Dimension (2D) 3.0 cm 2.7-3.8 LA Dimen Index (2D) 1.8 cm/m2 LA Area (4C) 17 cm2 LA Length (4C) 5.1 cm LA Area (2C) 19 cm2 LA Length (2C) 5.1 cm LA Volume (4C MOD) 46 ml LA Volume (2C MOD) 55 ml LA Volume (4C A-L) 50 ml LA Volume (2C A-L) 57 ml LA Volume (BP A-L) 53 ml LA Volume Index (BP A-L) 32 ml/m2 16-34 LA Volume (BP MOD) 50 ml LA Volume Index (BP MOD) 30 ml/m2 16-34 Report Signatures Finalized by Valeria Byrd on 09/09/2023 05:03 PM Lori Rodríguez APRN-HEAD START TEACHER ECHO CUPID * (ABNORMAL) LIPID PROFILE (LIPID PANEL) (08/25/2023 [...] Resulting Agency Comment Lab Testing performed at: [address] [phone] Lori CLEMENSHEAD START TEACHER LAB - CHEM ISTRY ORDERABLES [facility] INSURANCE BILL [address] [place] [address] * MAMMO BILAT DIAGNOSTIC W KENYA (08/17/2023 10:26 AM CDT) Only the most recent of2 resultswithin the time period is included. Anatomical Region Laterality Modality Breast Bilateral Mammography [...] breast. Valeria Chu MD MAMMO ORDERABLES * HEMOGLOBIN A1C (08/04/2023 1:58 PM CDT) Hemoglobin A1c 5.3 <5.7 % [facility] INSURANCE BILL Comment: AVERAGE GLUCOSE MG/DL BLOOD 105 mg/dL HbA1c Interpretation: Normal: < 5.7% Pre-diabetes: 5.7-6.4% Diabetes: Equal to or greater than 6.5% Test results diagnostic of diabetes should be repeated for c onfirmation. Treatment target values recommended by ADA and other clinica l organizations should be used to evaluate metabolic control in patients. This test should not replace glucose testing for patients wi th Type 1 diabetes, pediatric patients, or women. Falsely low HbA1c results may be observed in patients with c linical conditions that shorten erythrocyte life span or dec rease mean erythrocyte age such as the presence of unstable hemoglobin variants, elevated hemoglobin F level or other ca uses of hemolytic anemia. HbA1c may not accurately reflect glycemic control when clinical conditions that affect erythr ocyte survival are present. Severe Iron deficiency anemia m ay yield falsely high results. Hemoglobin A1c assay should not be used to diagnose or monitor diabetes in patients with malignancy, recent blood transfusion, chronic kidney or felipe er disease. This method may yield falsely low results when hemoglobin (HbF) exceeds 5% in the specimen. The [employer] assay for the measurement of HbA1c is a [facility] Glycohemoglobin Standardization Program (NGSP) certi fied method. Blood BLOOD SPECIMEN / Unknown 08/04/2023 1:58 PM CDT 08/04/2023 Narrative Resulting Agency Comment Lab Testing performed at: [facility] [address] [facility] [phone] Taj Childers MD LAB - CHEMISTRY TREMAINE FIORE [facility] INSURANCE BILL [address] [place] [address] * Rad Onc Aria Session Summary (04/09/2023 10:27 AM 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) Course ID C1 DIBH L Breast RAD ONC TREATMENT Course First Treatment Date 02/17/2023 9:22 AM RAD ONC TREATMENT Plan ID Lt Breast Bst RAD ONC TREATMENT Plan Fractions Treated to Date 8 RAD ONC TREATMENT Plan Total Fractions Prescribed 8 RAD ONC TREATMENT Plan Total Prescribed Dose 1600 cGy RAD ONC TREATMENT 04/09/2023 10:2 7 AM 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 Provider Unknown RADIATION ONCOLOGY O RDERABLES RAD ONC TREATMENT * Rad Onc Aria Session Summary (04/08/2023 10:35 AM 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) Course ID C1 DIBH L Breast RAD ONC TREATMENT Course First Treatment Date 02/17/2023 9:22 AM RAD ONC TREATMENT Plan ID Lt Breast Bst RAD ONC TREATMENT Plan Fractions Treated to Date 7 RAD ONC TREATMENT Plan Total Fractions Prescribed 8 RAD ONC TREATMENT Plan Total Prescribed Dose 1600 cGy RAD ONC TREATMENT 04/08/2023 10:3 5 AM 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 Provider Unknown RADIATION ONCOLOGY O RDERABLES RAD ONC TREATMENT * Rad Onc Aria Session Summary (04/07/2023 10:03 AM 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) Course ID C1 DIBH L Breast RAD ONC TREATMENT Course First Treatment Date 02/17/2023 9:22 AM RAD ONC TREATMENT Plan ID Lt Breast Bst RAD ONC TREATMENT Plan Fractions Treated to Date 6 RAD ONC TREATMENT Plan Total Fractions Prescribed 8 RAD ONC TREATMENT Plan Total Prescribed Dose 1600 cGy RAD ONC TREATMENT 04/07/2023 10:0 3 AM 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 Provider Unknown RADIATION ONCOLOGY O RDERABLES Performing Organization Address [facility]/ZIP Co de Phone Number RAD ONC TREATMENT * Rad Onc Aria Session Summary (04/06/2023 10:25 AM 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) Course ID C1 DIBH L Breast RAD ONC TREATMENT Course First Treatment Date 02/17/2023 9:22 AM RAD ONC TREATMENT Plan ID Lt Breast Bst RAD ONC TREATMENT Plan Fractions Treated to Date 5 RAD ONC TREATMENT Plan Total Fractions Prescribed 8 RAD ONC TREATMENT Plan Total Prescribed Dose 1600 cGy RAD ONC TREATMENT 04/06/2023 10:2 5 AM 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 Provider Unknown RADIATION ONCOLOGY O RDERABLES Performing Organization Address [facility] Co de Phone Number RAD ONC TREATMENT * Rad Onc Aria Session Summary (04/05/2023 10:26 AM 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) Course ID C1 DIBH L Breast RAD ONC TREATMENT Course First Treatment Date 02/17/2023 9:22 AM RAD ONC TREATMENT Plan ID Lt Breast Bst RAD ONC TREATMENT Plan Fractions Treated to Date 4 RAD ONC TREATMENT Plan Total Fractions Prescribed 8 RAD ONC TREATMENT Plan Total Prescribed Dose 1600 cGy RAD ONC TREATMENT 04/05/2023 10:2 6 AM 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 Provider Unknown RADIATION ONCOLOGY O RDERABLES RAD ONC TREATMENT * Rad Onc Aria Session Summary (04/02/2023 10:41 AM 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) Course ID C1 DIBH L Breast RAD ONC TREATMENT Course First Treatment Date 02/17/2023 9:22 AM RAD ONC TREATMENT Plan ID Lt Breast Bst RAD ONC TREATMENT Plan Fractions Treated to Date 3 RAD ONC TREATMENT Plan Total Fractions Prescribed 8 RAD ONC TREATMENT Plan Total Prescribed Dose 1600 cGy RAD ONC TREATMENT 04/02/2023 10:4 1 AM 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 Provider Unknown RADIATION ONCOLOGY O RDERABLES RAD ONC TREATMENT * Rad Onc Aria Session Summary (04/01/2023 10:33 AM 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) Course ID C1 DIBH L Breast RAD ONC TREATMENT Course First Treatment Date 02/17/2023 9:22 AM RAD ONC TREATMENT Plan ID Lt Breast Bst RAD ONC TREATMENT Plan Fractions Treated to Date 2 RAD ONC TREATMENT Plan Total Fractions Prescribed 8 RAD ONC TREATMENT Plan Total Prescribed Dose 1600 cGy RAD ONC TREATMENT 04/01/2023 10:3 3 AM 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 Provider Unknown RADIATION ONCOLOGY O RDERABLES RAD ONC TREATMENT * Rad Onc Aria Session Summary (03/31/2023 12:54 PM 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) Course ID C1 DIBH L Breast RAD ONC TREATMENT Course First Treatment Date 02/17/2023 9:22 AM RAD ONC TREATMENT Plan ID Lt Breast Bst RAD ONC TREATMENT Plan Fractions Treated to Date 1 RAD ONC TREATMENT Plan Total Fractions Prescribed 8 RAD ONC TREATMENT Plan Total Prescribed Dose 1600 cGy RAD ONC TREATMENT 03/31/2023 12:5 4 PM 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 Provider Unknown RADIATION ONCOLOGY O RDERABLES RAD ONC TREATMENT * Rad Onc Aria Session Summary (03/30/2023 11:53 AM 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) Course ID C1 DIBH L Breast RAD ONC TREATMENT Course First Treatment Date 02/17/2023 9:22 AM RAD ONC TREATMENT Plan ID DIBH L Breast RAD ONC TREATMENT Plan Fractions Treated to Date 28 RAD ONC TREATMENT Plan Total Fractions Prescribed 28 RAD ONC TREATMENT Plan Total Prescribed Dose 5040 cGy RAD ONC TREATMENT 03/30/2023 11:5 3 AM 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 Provider Unknown RADIATION ONCOLOGY O RDERABLES RAD ONC TREATMENT * Rad Onc Aria Session Summary (03/26/2023 10:15 AM 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) Course ID C1 DIBH L Breast RAD ONC TREATMENT Course First Treatment Date 02/17/2023 9:22 AM RAD ONC TREATMENT Plan ID DIBH L Breast RAD ONC TREATMENT Plan Fractions Treated to Date 27 RAD ONC TREATMENT Plan Total Fractions Prescribed 28 RAD ONC TREATMENT Plan Total Prescribed Dose 5040 cGy RAD ONC TREATMENT 03/26/2023 10:1 5 AM 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 Provider Unknown RADIATION ONCOLOGY O RDERABLES RAD ONC TREATMENT * Rad Onc Aria Session Summary (03/25/2023 10:26 AM 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) Course ID C1 DIBH L Breast RAD ONC TREATMENT Course First Treatment Date 02/17/2023 9:22 AM RAD ONC TREATMENT Plan ID DIBH L Breast RAD ONC TREATMENT Plan Fractions Treated to Date 26 RAD ONC TREATMENT Plan Total Fractions Prescribed 28 RAD ONC TREATMENT Plan Total Prescribed Dose 5040 cGy RAD ONC TREATMENT 03/25/2023 10:2 6 AM 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 Provider Unknown RADIATION ONCOLOGY O RDERABLES RAD ONC TREATMENT * Rad Onc Aria Session Summary (03/24/2023 10:23 AM 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) Course ID C1 DIBH L Breast RAD ONC TREATMENT Course First Treatment Date 02/17/2023 9:22 AM RAD ONC TREATMENT Plan ID DIBH L Breast RAD ONC TREATMENT Plan Fractions Treated to Date 25 RAD ONC TREATMENT Plan Total Fractions Prescribed 28 RAD ONC TREATMENT Plan Total Prescribed Dose 5040 cGy RAD ONC TREATMENT 03/24/2023 10:2 3 AM 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 Provider Unknown RADIATION ONCOLOGY O RDERABLES RAD ONC TREATMENT * Rad Onc Aria Session Summary (03/23/2023 10:22 AM 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) Course ID C1 DIBH L Breast RAD ONC TREATMENT Course First Treatment Date 02/17/2023 9:22 AM RAD ONC TREATMENT Plan ID DIBH L Breast RAD ONC TREATMENT Plan Fractions Treated to Date 24 RAD ONC TREATMENT Plan Total Fractions Prescribed 28 RAD ONC TREATMENT Plan Total Prescribed Dose 5040 cGy RAD ONC TREATMENT 03/23/2023 10:2 2 AM 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 Provider Unknown RADIATION ONCOLOGY O RDERABLES RAD ONC TREATMENT * Rad Onc Aria Session Summary (03/22/2023 10:28 AM 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) Course ID C1 DIBH L Breast RAD ONC TREATMENT Course First Treatment Date 02/17/2023 9:22 AM RAD ONC TREATMENT Plan ID DIBH L Breast RAD ONC TREATMENT Plan Fractions Treated to Date 23 RAD ONC TREATMENT Plan Total Fractions Prescribed 28 RAD ONC TREATMENT Plan Total Prescribed Dose 5040 cGy RAD ONC TREATMENT 03/22/2023 10:2 8 AM 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 Provider Unknown RADIATION ONCOLOGY O RDERABLES RAD ONC TREATMENT * Rad Onc Aria Session Summary (03/19/2023 10:33 AM 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) Course ID C1 DIBH L Breast RAD ONC TREATMENT Course First Treatment Date 02/17/2023 9:22 AM RAD ONC TREATMENT Plan ID DIBH L Breast RAD ONC TREATMENT Plan Fractions Treated to Date 22 RAD ONC TREATMENT Plan Total Fractions Prescribed 28 RAD ONC TREATMENT Plan Total Prescribed Dose 5040 cGy RAD ONC TREATMENT 03/19/2023 10:3 3 AM 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 Provider Unknown RADIATION ONCOLOGY O RDERABLES RAD ONC TREATMENT * Rad Onc Aria Session Summary (03/18/2023 10:06 AM 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) Course ID C1 DIBH L Breast RAD ONC TREATMENT Course First Treatment Date 02/17/2023 9:22 AM RAD ONC TREATMENT Plan ID DIBH L Breast RAD ONC TREATMENT Plan Fractions Treated to Date 21 RAD ONC TREATMENT Plan Total Fractions Prescribed 28 RAD ONC TREATMENT Plan Total Prescribed Dose 5040 cGy RAD ONC TREATMENT 03/18/2023 10:0 6 AM 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 Provider Unknown RADIATION ONCOLOGY O RDERABLES Performing Organization Address City/State/[facility] Co de Phone Number RAD ONC TREATMENT * Rad Onc Aria Session Summary (03/17/2023 10:35 AM 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) Course ID C1 DIBH L Breast RAD ONC TREATMENT Course First Treatment Date 02/17/2023 9:22 AM RAD ONC TREATMENT Plan ID DIBH L Breast RAD ONC TREATMENT Plan Fractions Treated to Date 20 RAD ONC TREATMENT Plan Total Fractions Prescribed 28 RAD ONC TREATMENT Plan Total Prescribed Dose 5040 cGy RAD ONC TREATMENT 03/17/2023 10:3 5 AM 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 Provider Unknown RADIATION ONCOLOGY O RDERABLES Performing Organization Address [facility] Co de Phone Number RAD ONC TREATMENT * Rad Onc Aria Session Summary (03/16/2023 10:28 AM 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) Course ID C1 DIBH L Breast RAD ONC TREATMENT Course First Treatment Date 02/17/2023 9:22 AM RAD ONC TREATMENT Plan ID DIBH L Breast RAD ONC TREATMENT Plan Fractions Treated to Date 19 RAD ONC TREATMENT Plan Total Fractions Prescribed 28 RAD ONC TREATMENT Plan Total Prescribed Dose 5040 cGy RAD ONC TREATMENT 03/16/2023 10:2 8 AM 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 Provider Unknown RADIATION ONCOLOGY O RDERABLES Performing Organization Address City/State/[facility] de Phone Number RAD ONC TREATMENT * Rad Onc Aria Session Summary (03/15/2023 10:23 AM 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) Course ID C1 DIBH L Breast RAD ONC TREATMENT Course First Treatment Date 02/17/2023 9:22 AM RAD ONC TREATMENT Plan ID DIBH L Breast RAD ONC TREATMENT Plan Fractions Treated to Date 18 RAD ONC TREATMENT Plan Total Fractions Prescribed 28 RAD ONC TREATMENT Plan Total Prescribed Dose 5040 cGy RAD ONC TREATMENT 03/15/2023 10:2 3 AM 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 Provider Unknown RADIATION ONCOLOGY O RDERABLES RAD ONC TREATMENT * Rad Onc Aria Session Summary (03/12/2023 10:52 AM 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) Course ID C1 DIBH L Breast RAD ONC TREATMENT Course First Treatment Date 02/17/2023 9:22 AM RAD ONC TREATMENT Plan ID DIBH L Breast RAD ONC TREATMENT Plan Fractions Treated to Date 17 RAD ONC TREATMENT Plan Total Fractions Prescribed 28 RAD ONC TREATMENT Plan Total Prescribed Dose 5040 cGy RAD ONC TREATMENT 03/12/2023 10:5 2 AM 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 Provider Unknown RADIATION ONCOLOGY O RDERABLES RAD ONC TREATMENT * Rad Onc Aria Session Summary (03/11/2023 10:51 AM 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) Course ID C1 DIBH L Breast RAD ONC TREATMENT Course First Treatment Date 02/17/2023 9:22 AM RAD ONC TREATMENT Plan ID DIBH L Breast RAD ONC TREATMENT Plan Fractions Treated to Date 16 RAD ONC TREATMENT Plan Total Fractions Prescribed 28 RAD ONC TREATMENT Plan Total Prescribed Dose 5040 cGy RAD ONC TREATMENT 03/11/2023 10:5 1 AM 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 Provider Unknown RADIATION ONCOLOGY O RDERABLES RAD ONC TREATMENT * Rad Onc Aria Session Summary (03/10/2023 8:51 AM 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) Course ID C1 DIBH L Breast RAD ONC TREATMENT Course First Treatment Date 02/17/2023 9:22 AM RAD ONC TREATMENT Plan ID DIBH L Breast RAD ONC TREATMENT Plan Fractions Treated to Date 15 RAD ONC TREATMENT Plan Total Fractions Prescribed 28 RAD ONC TREATMENT Plan Total Prescribed Dose 5040 cGy RAD ONC TREATMENT 03/10/2023 8:51 AM 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 Provider Unknown RADIATION ONCOLOGY O RDERABLES RAD ONC TREATMENT * Rad Onc Aria Session Summary (03/09/2023 10:18 AM 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) Course ID C1 DIBH L Breast RAD ONC TREATMENT Course First Treatment Date 02/17/2023 9:22 AM RAD ONC TREATMENT Plan ID DIBH L Breast RAD ONC TREATMENT Plan Fractions Treated to Date 14 RAD ONC TREATMENT Plan Total Fractions Prescribed 28 RAD ONC TREATMENT Plan Total Prescribed Dose 5040 cGy RAD ONC TREATMENT 03/09/2023 10:1 8 AM 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 Provider Unknown RADIATION ONCOLOGY O RDERABLES RAD ONC TREATMENT * Rad Onc Aria Session Summary (03/08/2023 10:34 AM 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) Course ID C1 DIBH L Breast RAD ONC TREATMENT Course First Treatment Date 02/17/2023 9:22 AM RAD ONC TREATMENT Plan ID DIBH L Breast RAD ONC TREATMENT Plan Fractions Treated to Date 13 RAD ONC TREATMENT Plan Total Fractions Prescribed 28 RAD ONC TREATMENT Plan Total Prescribed Dose 5040 cGy RAD ONC TREATMENT 03/08/2023 10:3 4 AM 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 Provider Unknown RADIATION ONCOLOGY O RDERABLES RAD ONC TREATMENT * Rad Onc Aria Session Summary (03/05/2023 10:28 AM 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) Course ID C1 DIBH L Breast RAD ONC TREATMENT Course First Treatment Date 02/17/2023 9:22 AM RAD ONC TREATMENT Plan ID DIBH L Breast RAD ONC TREATMENT Plan Fractions Treated to Date 12 RAD ONC TREATMENT Plan Total Fractions Prescribed 28 RAD ONC TREATMENT Plan Total Prescribed Dose 5040 cGy RAD ONC TREATMENT 03/05/2023 10:2 8 AM 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 Provider Unknown RADIATION ONCOLOGY O RDERABLES RAD ONC TREATMENT * Rad Onc Aria Session Summary (03/04/2023 10:34 AM 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) Course ID C1 DIBH L Breast RAD ONC TREATMENT Course First Treatment Date 02/17/2023 9:22 AM RAD ONC TREATMENT Plan ID DIBH L Breast RAD ONC TREATMENT Plan Fractions Treated to Date 11 RAD ONC TREATMENT Plan Total Fractions Prescribed 28 RAD ONC TREATMENT Plan Total Prescribed Dose 5040 cGy RAD ONC TREATMENT 03/04/2023 10:3 4 AM 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 Provider Unknown RADIATION ONCOLOGY O RDERABLES RAD ONC TREATMENT * Rad Onc Aria Session Summary (03/03/2023 10:55 AM 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) Course ID C1 DIBH L Breast RAD ONC TREATMENT Course First Treatment Date 02/17/2023 9:22 AM RAD ONC TREATMENT Plan ID DIBH L Breast RAD ONC TREATMENT Plan Fractions Treated to Date 10 RAD ONC TREATMENT Plan Total Fractions Prescribed 28 RAD ONC TREATMENT Plan Total Prescribed Dose 5040 cGy RAD ONC TREATMENT 03/03/2023 10:5 5 AM 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 Provider Unknown RADIATION ONCOLOGY O RDERABLES Performing Organization Address City/[facility] Co de Phone Number RAD ONC TREATMENT * Rad Onc Aria Session Summary (03/02/2023 10:52 AM 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) Course ID C1 DIBH L Breast RAD ONC TREATMENT Course First Treatment Date 02/17/2023 9:22 AM RAD ONC TREATMENT Plan ID DIBH L Breast RAD ONC TREATMENT Plan Fractions Treated to Date 9 RAD ONC TREATMENT Plan Total Fractions Prescribed 28 RAD ONC TREATMENT Plan Total Prescribed Dose 5040 cGy RAD ONC TREATMENT 03/02/2023 10:5 2 AM 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 Provider Unknown RADIATION ONCOLOGY O RDERABLES RAD ONC TREATMENT * Rad Onc Aria Session Summary (02/26/2023 10:12 AM 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) Course ID C1 DIBH L Breast RAD ONC TREATMENT Course First Treatment Date 02/17/2023 9:22 AM RAD ONC TREATMENT Plan ID DIBH L Breast RAD ONC TREATMENT Plan Fractions Treated to Date 8 RAD ONC TREATMENT Plan Total Fractions Prescribed 28 RAD ONC TREATMENT Plan Total Prescribed Dose 5040 cGy RAD ONC TREATMENT 02/26/2023 10:1 2 AM 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 Provider Unknown RADIATION ONCOLOGY O RDERABLES RAD ONC TREATMENT * Rad Onc Aria Session Summary (02/25/2023 10:13 AM 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) Course ID C1 DIBH L Breast RAD ONC TREATMENT Course First Treatment Date 02/17/2023 9:22 AM RAD ONC TREATMENT Plan ID DIBH L Breast RAD ONC TREATMENT Plan Fractions Treated to Date 7 RAD ONC TREATMENT Plan Total Fractions Prescribed 28 RAD ONC TREATMENT Plan Total Prescribed Dose 5040 cGy RAD ONC TREATMENT 02/25/2023 10:1 3 AM 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 Provider Unknown RADIATION ONCOLOGY O RDERABLES Performing Organization Address [facility] Co de Phone Number RAD ONC TREATMENT * Rad Onc Aria Session Summary (02/24/2023 10:20 AM 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) Course ID C1 DIBH L Breast RAD ONC TREATMENT Course First Treatment Date 02/17/2023 9:22 AM RAD ONC TREATMENT Plan ID DIBH L Breast RAD ONC TREATMENT Plan Fractions Treated to Date 6 RAD ONC TREATMENT Plan Total Fractions Prescribed 28 RAD ONC TREATMENT Plan Total Prescribed Dose 5040 cGy RAD ONC TREATMENT 02/24/2023 10:2 0 AM 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 Provider Unknown RADIATION ONCOLOGY O RDERABLES Performing Organization Address City/[facility]/ZIP Co de Phone Number RAD ONC TREATMENT * Rad Onc Aria Session Summary (02/23/2023 10:33 AM 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) Course ID C1 DIBH L Breast RAD ONC TREATMENT Course First Treatment Date 02/17/2023 9:22 AM RAD ONC TREATMENT Plan ID DIBH L Breast RAD ONC TREATMENT Plan Fractions Treated to Date 5 RAD ONC TREATMENT Plan Total Fractions Prescribed 28 RAD ONC TREATMENT Plan Total Prescribed Dose 5040 cGy RAD ONC TREATMENT 02/23/2023 10:3 3 AM 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 Provider Unknown RADIATION ONCOLOGY O RDERABLES RAD ONC TREATMENT * Rad Onc Aria Session Summary (02/22/2023 10:21 AM 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) Course ID C1 DIBH L Breast RAD ONC TREATMENT Course First Treatment Date 02/17/2023 9:22 AM RAD ONC TREATMENT Plan ID DIBH L Breast RAD ONC TREATMENT Plan Fractions Treated to Date 4 RAD ONC TREATMENT Plan Total Fractions Prescribed 28 RAD ONC TREATMENT Plan Total Prescribed Dose 5040 cGy RAD ONC TREATMENT 02/22/2023 10:2 1 AM 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 Provider Unknown RADIATION ONCOLOGY O RDERABLES RAD ONC TREATMENT * Rad Onc Aria Session Summary (02/19/2023 10:10 AM 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) Course ID C1 DIBH L Breast RAD ONC TREATMENT Course First Treatment Date 02/17/2023 9:22 AM RAD ONC TREATMENT Plan ID DIBH L Breast RAD ONC TREATMENT Plan Fractions Treated to Date 3 RAD ONC TREATMENT Plan Total Fractions Prescribed 28 RAD ONC TREATMENT Plan Total Prescribed Dose 5040 cGy RAD ONC TREATMENT 02/19/2023 10:1 0 AM 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 Provider Unknown RADIATION ONCOLOGY O RDERABLES RAD ONC TREATMENT * Rad Onc Aria Session Summary (02/18/2023 10:46 AM 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) Course ID C1 DIBH L Breast RAD ONC TREATMENT Course First Treatment Date 02/17/2023 9:22 AM RAD ONC TREATMENT Plan ID DIBH L Breast RAD ONC TREATMENT Plan Fractions Treated to Date 2 RAD ONC TREATMENT Plan Total Fractions Prescribed 28 RAD ONC TREATMENT Plan Total Prescribed Dose 5040 cGy RAD ONC TREATMENT 02/18/2023 10:4 6 AM 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 Provider Unknown RADIATION ONCOLOGY O RDERABLES RAD ONC TREATMENT * Rad Onc Aria Session Summary (02/17/2023 9:27 AM 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) Course ID C1 DIBH L Breast RAD ONC TREATMENT Course First Treatment Date 02/17/2023 9:22 AM RAD ONC TREATMENT Plan ID DIBH L Breast RAD ONC TREATMENT Plan Fractions Treated to Date 1 RAD ONC TREATMENT Plan Total Fractions Prescribed 28 RAD ONC TREATMENT Plan Total Prescribed Dose 5040 cGy RAD ONC TREATMENT 02/17/2023 9:27 AM 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 Provider Unknown RADIATION ONCOLOGY O RDERABECKY RAD ONC TREATMENT * (ABNORMAL) IRON + TIBC + FERRITIN (02/10/2023 1:45 PM 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) Only the most recent of2 resultswithin the time period is included. TIBC 224(L) 250 - 450 ug/dL [facility] INSURANCE BILL UIBC 172 118 - 369 ug/dL [facility] INSURANCE BILL Iron 52 27 - 139 ug/dL [facility] INSURANCE BILL Iron Saturation 23 15 - 55 % [facility] INSURANCE BILL Ferritin 188(H) 15 - 150 ng/mL [facility] INSURANCE BILL Blood BLOOD SPECIMEN / Unknown 02/10/2023 1:45 PM 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 02/10/2023 Narrative Resulting Agency Comment Lab Testing performed at: [facility] [address] [facility] [phone] Taj Childers MD LAB - CHEMISTRY TREMAINE FIORE [facility] INSURANCE BILL [address] [place] [address] * (ABNORMAL) VITAMIN B12 FOLATE PANEL (02/10/2023 1:45 PM 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) Vitamin B12 >2000(H) 213 - 816 pg/mL [facility] INSURANCE BILL Folate 9.0 7.0 - 31.4 ng/mL [facility] INSURANCE BILL Blood BLOOD SPECIMEN / Unknown 02/10/2023 1:45 PM 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 02/10/2023 Narrative Resulting Agency Comment Lab Testing performed at: [facility] [address] [facility] [phone] Taj Childers MD LAB - CHEMISTRY TREMAINE FIORE [facility] INSURANCE BILL [address] [place] [address] * B-TYPE NATRIURETIC PEPTIDE (02/10/2023 1:44 PM 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) BNP 17.7 0.0 - 100.0 pg/mL [facility] INSURANCE BILL Comment:[employer] XP methodology Blood BLOOD SPECIMEN / Unknown 02/10/2023 1:44 PM 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 02/10/2023 Narrative Resulting Agency Comment Lab Testing performed at: [facility] [phone] Taj Childers MD LAB - CHEMISTRY TREMAINE FIORE Performing Organization Address City/[facility]/ZIP Co de Phone Number [facility] INSURANCE BILL [address] [place] [address] * XR CHEST 2VW (02/10/2023 11:11 AM 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) Anatomical Region Laterality Modality Chest Radiographic Alexsandra ging 02/10/2023 11:1 5 AM 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 Impressions 02/10/2023 11:16 AM 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 IMPRESSION: No change, lungs clear > Interpreting Provider: Femi Polo MD on 02/10/2023 11:16 AM Narrative 02/10/2023 11:16 AM 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 PROCEDURE: XR CHEST 2VW DATE/TIME OF EXAM: 02/10/2023 11:11 AM CLINICAL INFORMATION: None relevant/not provided if blank. Indication: C50.112: Malignant neoplasm of central portion of left female breast (CMS-HCC) Z17.0: Estrogen receptor positive status (ER+) R06.09: Other forms of dyspnea R05.9: Cough, unspecified Additional History: COMPARISON: Chest from 10/02/2022 FINDINGS: The lungs remain clear and free of effusion. The heart size is normal. A right subclavian implanted venous access port still ends in the superior vena cava. The mediastinum is unremarkable. Chronic tendon anchors in both humeral heads. Procedure Note Femi Polo MD - 02/10/2023 PROCEDURE: XR CHEST 2VW DATE/TIME OF EXAM: 02/10/2023 11:11 AM CLINICAL INFORMATION: None relevant/not provided if blank. Indication: C50.112: Malignant neoplasm of central portion of leftfemale breast (CMS-HCC) Z17.0: Estrogen receptor positive status (ER+) R06.09: Other forms of dyspnea R05.9: Cough, unspecified Additional History: COMPARISON: Chest from 10/02/2022 FINDINGS: The lungs remain clear and free of effusion. The heart size is normal.A right subclavian implanted venous access port still ends in the superior vena cava. The mediastinum is unremarkable. Chronic tendon anchors in both humeral heads. IMPRESSION: No change, lungs clear > Interpreting Provider: Femi Polo MD on 02/10/2023 11:16 AM Taj Childers MD DIAGNOSTIC IMAGING O RDERABLES * DEXA BONE DENSITY AXIAL SKELETON (02/10/2023 11:11 AM 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) Anatomical Region Laterality Modality Nuclear Medicine 02/10/2023 11:2 2 AM 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 Impressions 02/10/2023 11:22 AM 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 IMPRESSION: WHO category: Osteopenia WORLD HEALTH ORGANIZATION DEFINITIONS NORMAL= T-Score at or above -1.0 SD OSTEOPENIA = T-Score between -1 and -2.5 SD OSTEOPOROSIS = T-Score at or below -2.5 SD > Interpreting Provider: Dharmesh Harris DO on 02/10/2023 11:22 AM Narrative 02/10/2023 11:22 AM 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 PROCEDURE: DEXA BONE DENSITY AXIAL SKELETON DATE/TIME [...] Harris DO on 02/10/2023 11:22 AM Taj MILLS ORDERABLES * LIPASE BLOOD (10/14/2022 1:37 PM CDT) Lipase 17 <60 U/L [facility] INSURANCE BILL 10/14/2022 1:37 PM CDT 10/14/2022 Narrative Resulting Agency Comment Lab Testing performed at: [facility] [address] [facility] [phone] Dennise Johns [employer] LAB - CHEMISTRY ORDERABLES [facility] INSURANCE BILL [address] [place] [address] * GGT (10/14/2022 1:37 PM CDT) GGT 30 0 - 60 IU/L [facility] INSURANCE BILL 10/14/2022 1:37 PM CDT 10/14/2022 Narrative Resulting Agency Comment Lab Testing performed at: [facility] [address] [facility] [phone] Dennise Johns [employer] LAB - CHEMISTRY ORDERABLES Performing Organization Address City/[facility]/ZIP Co de Phone Number [facility] INSURANCE BILL [address] [place] [address] * AMYLASE BLOOD (10/14/2022 1:37 PM CDT) Amylase 53 25 - 125 U/L [facility] INSURANCE BILL 10/14/2022 1:37 PM CDT 10/14/2022 Narrative Resulting Agency Comment Lab Testing performed at: [facility] [address] [place] [address] [phone] Dennise Johns [employer] TE[employer] LAB - CHEMISTRY ORDERABLES Performing Organization Address City/[facility]/ZIP Co de Phone Number [facility] INSURANCE BILL [address] [place] [address] * CARDIAC RHYTHM STRIP ORDER (10/06/2022 5:38 PM CDT) Only the most recent of2 resultswithin the time period is included. Narrative 10/06/2022 5:38 PM CDT Ordered by an unspecified provider. Scanned Document CARDIAC SERVICES ORD ERABLES * XR CHEST POST CENTRAL LINE (10/02/2022 11:30 AM CDT) Anatomical Region Laterality Modality Chest Radiographic Alexsandra ging 10/02/2022 11:4 1 AM CDT Narrative 10/02/2022 11:42 AM CDT Procedure: XR CHEST 1VW PORTABLE Exam Date: 10/02/2022 11:30 AM Location: [facility] Indication: C50.112: Malignant neoplasm of central portion of left female breast (CMS/HCC) Findings/impression: No old studies are available for comparison purposes. There is a right-sided port with tip at the cavoatrial junction. There is no pneumothorax. The lungs are clear. There is no pleural effusion. The heart size is normal. > Interpreting Provider: Ayo Silva MD on 10/02/2022 11:42 AM Procedure Note Ayo Silva MD - 10/05/2022 Procedure: XR CHEST 1VW PORTABLE Exam Date: 10/02/2022 11:30 AM Location: [facility] Indication: C50.112: Malignant neoplasm of central portion of leftfemale breast (CMS/HCC) Findings/impression: No old studies are available for comparison purposes. There is a right-sided port with tip at the cavoatrial junction. There is no pneumothorax. The lungs are clear. There is no pleural effusion. Theheart size is normal. > Interpreting Provider: Ayo Silva MD on 10/02/2022 11:42 AM Valeria Chu MD DIAGNOSTIC IMAGING ORDERABLES * FL CENTRAL VENOUS ACCESS DEVICE (10/02/2022 11:25 AM CDT) Narrative [facility] - 10/02/2022 11:26 AM CDT For details of this study, please see the providers note. Valeria Chu MD FLUOROSCOPY ORDERAB LES [facility] [address] [place] [address] * MAMMO BREAST LEFT SPECIMEN (09/09/2022 2:00 PM CDT) Anatomical Region Laterality Modality Breast Left Mammography 09/09/2022 2:26 PM CDT Impressions 09/09/2022 2:29 PM CDT : A surgical specimen was imaged using digital radiography. A biopsy clip is included within the surgical specimen. > Interpreting Provider: Sharon Olivas MD on 09/09/2022 2:29 PM Narrative 09/09/2022 2:29 PM CDT EXAMINATION: RADIOLOGIC EXAMINATION OF A LEFT BREAST SURGICAL SPECIMEN HISTORY: 72-year-old with a reported biopsy proven left breast malignancy. Intraoperative specimen radiography left breast lumpectomy was performed. No preoperative localization was performed. FINDINGS/ Valeria Chu MD MAMMO ORDERABLES * PATHOLOGY TISSUE EXAM (STL) (09/09/2022 12:07 PM CDT) Only the most recent of2 resultswithin the time period is included. Case Report Surgical Pathology Report Case: [id number] Authorizing Provider: Valeria Chu MD Collected: 09/09/2022 12:07 PM Ordering Location: [facility] Received: 09/09/2022 12:19 PM Pathologist: Aleah Gaitan MD Specimens: A) - Carroll Lymph Node, Left Axillary Sentinal Lymph Nodes B) - Breast Mass, Left Lumpectomy ink marked as on sticker C) - Breast Mass, Left lumpectomy superior margin, red ink on new margin 09/14/2022 10:15 AM CDT [facility] Final Diagnosis Lymph nodes, left axillary, sentinel lymph node dissection (A) - Isolated tumor cells in one of two lymph nodes (1i+/2) Breast, left, lumpectomy (B) - Invasive ductal carcinoma, grade 2, 16 mm (measured from slide), with direct extension into epidermis and with focal cutaneous ulceration, with perineural and lymphvascular space invasion, including invasion of dermal lymphatics - Ductal carcinoma in situ, intermediate grade, extending to 1 mm from medial margin - Margins uninvolved by invasive carcinoma - Biopsy site changes Breast, left, superior margin, excision (C) - No evidence of malignancy 09/14/2022 10:[address] [facility] Clinical History The patient is a 72-year-old woman with a subareolar mass. Prior biopsy showed invasive ductal carcinoma, ER positive, AZ negative, and HER2 positive (score equals 3+). Operative procedure: lumpectomy, sentinel lymph node dissection. 09/14/2022 10:[address] [facility] Gross Description The requisition and specimen (s) are identified with the patient's name, Zaida Flores. Received fresh, specimen A, left axillary sentin+ consists of multiple fragments of yellow to gayle soft tissues measuring 3.5 x 2.5 x 0.5 cm in aggregate. Sectioning shows 2 potential lymph nodes measuring 1.0 and 2.0 cm in greatest dimension, entirely submitted as follows: A1-1 lymph node, bisected A2-1 lymph node, bisected Specimen processing times are as follows: Specimen taken out: 09/09/2022 12:07 PM Specimen placed in formalin: 09/09/2022 12:25 PM Total cold ischemia time: 18 minutes Total formalin fixation time: 30 hours 35 minutes Received fresh, specimen B left lumpectomy ink+ is a 30 g, 4.5 cm superior to inferior, 3.5 cm medial to lateral and 2.5 cm anterior to posterior lumpectomy specimen with gayle skin (4.2 x 3.0 cm) anteriorly with flat/inverted nipple (1 x 1 cm). The specimen is received inked as follows: Anterior green, posterior black, superior red, inferior blue, medial yellow and lateral orange. The specimen is serially sectioned from medial to lateral revealing a spiculated subareolar, gayle, firm and fibrotic lesion measuring 2.0 x 1.0 by 0.8 cm. The lesion abuts superior red margin and anterior skin, is located 0.5 cm from inferior blue margin, 1.5 cm from posterior black margin, 0.9 cm from medial yellow margin and 1.5 cm from the lateral orange margin. Rest of the parenchyma is yellow to fibrotic with cystic changes. Hose Tester sections are submitted as follows: G3-I9-vjdpsn margin, perpendicular sections B 3-lateral margin perpendicular sections B4-mass closest to superior margin B5-B6-mass closest to superior and posterior margin (1 cross-section) B7-mass closest to inferior margin B 4-S92-zmdxmjl section adjacent to the mass (1 cross-section) Q90-55-qdvtpxodf mass, entirely submitted [id number]-jamcycp normal skin and parenchyma Specimen processing times are as follows: Specimen taken out: 09/09/2022 12:28 PM Specimen placed in formalin: 09-09 12:51 PM Total cold ischemia time: 23 minutes Total formalin fixation time: 30 hours 9 minutes Received fresh, specimen C left lumpectomy supe+ is a single fragment of yellow-gayle soft tissue with attached gayle skin measuring 4.8 x 2 x 0.4 cm with red ink on one surface. The specimen is serially sectioned perpendicular to the ink and entirely submitted in cassettes C1-C5. Specimen processing times are as follows: Specimen taken out: 09/09/2021 12:30 PM Specimen placed in formalin: 09/09/2022 12:51 PM Total cold ischemia time: 21 minutes Total formalin fixation time: 30 hours 9 minutes AR 09/14/2022 10:[address] [facility] Microscopic Description Microscopic examination substantiates the above diagnosis. Multiple H&E levels and a pankeratin immunostain (controls adequate) were evaluated on part A, per sentinel lymph node protocol. Focal isolated tumor cells are present on the pankeratin immunostained section and confirmed with GATA3 and ER stains on the adjacent unstained sections. The cells also are identified on the H&E sections in an area of artifactual tissue disruption. Histologic sections of the lumpectomy specimen (part B) show invasive ductal carcinoma, which directly invades into the overlying epidermis. D240 and CD31 immunostains (controls adequate) confirm the presence of lymphvascular space invasion, including in superficial dermal lymphatics. CK7 is non-contributory due to tissue loss. 09/14/2022 10:[address] [facility] Pathologist Location at [facility] 09/14/2022 10:[address] [facility] Disclaimer All histochemical and/or immunohistochemical results are interpreted with controls that demonstrate appropriate staining reactions before reporting results. Note on use of immunocytochemistry reagents: This test was developed and its performance characteristic determined by [facility], Department of Laboratory Medicine. It has not been cleared or approved by the U.S. Food and Drug Administration (FDA). The FDA has determined that such clearance or approval is not necessary. The test is used for clinical purpose. It should not be regarded as investigational or for research. This laboratory is certified to perform high complexity testing. The performance characteristics of the IHC/BK assays have been validated on formalin-fixed paraffin embedded tissues only. The assays have not been validated on decalcified tissues. Results should be interpreted with caution. 09/14/2022 10:15 AM T [facility] Synoptic Report INVASIVE CARCINOMA OF THE BREAST: Resection INVASIVE CARCINOMA OF THE BREAST: COMPLETE EXCISION - All Specimens 8th Edition - Protocol posted: 04/29/2022 SPECIMEN Procedure: Excision (less than total mastectomy) Specimen Laterality: Left TUMOR Histologic Type: Invasive carcinoma of no special type (ductal) Histologic Grade (Allie Histologic Score): Glandular (Acinar) / Tubular Differentiation: Score 3 Nuclear Pleomorphism: Score 2 Mitotic Rate: Score 2 Overall Grade: Grade 2 (scores of 6 or 7) Tumor Size: Greatest dimension of largest invasive focus (Millimeters): 16 mm Tumor Focality: Single focus of invasive carcinoma Ductal Carcinoma In Situ (DCIS): Present Tumor Extent: Skin is present and involved Skin Invasion: Carcinoma directly invades into the dermis or epidermis with skin ulceration (classified as T4b) Skin Satellite Foci: Satellite foci not identified Lymphatic and / or Vascular Invasion: Present Dermal Lymphatic and / or Vascular Invasion: Present Treatment Effect in the Breast: No known presurgical therapy MARGINS Margin Status for Invasive Carcinoma: All margins negative for invasive carcinoma Distance from Invasive Carcinoma to Closest Margin: Greater than: 5 mm Closest Margin(s) to Invasive Carcinoma: Superior Margin Status for DCIS: All margins negative for DCIS Distance from DCIS to Closest Margin: 1 mm Closest Margin(s) to DCIS: Medial REGIONAL LYMPH NODES Regional Lymph Node Status: : Tumor present in regional lymph node(s) Number of Lymph Nodes with Macrometastases: 0 Number of Lymph Nodes with Micrometastases: 0 Number of Lymph Nodes with Isolated Tumor Cells: 1 Size of Largest Sloane Metastatic Deposit: 0.09 mm Extranodal Extension: Not identified Total Number of Lymph Nodes Examined (sentinel and non-sentinel): 2 Number of Carroll Nodes Examined: 2 pTNM CLASSIFICATION (AJCC 8th Edition) Reporting of pT, pN, and (when applicable) pM categories is based on information available to the pathologist at the time the report is issued. As per the AJCC (Chapter 1, 8th Ed.) it is the managing physician s responsibility to establish the final pathologic stage based upon all pertinent information, including but potentially not limited to this pathology report. pT Category: pT4b pN Category: pN0 (i+) N Suffix: (sn) 09/14/2022 10:15 AM CDT [facility] Embedded Images 09/14/2022 10:15 AM CDT [facility] Pathology/Cytology SPECIMEN FROM SENTINEL LYMPH NODE / Unknown 09/09/2022 12:07 PM CDT 09/09/2022 12:19 PM CDT Comment:Pre-op diagnosis: Malignant neoplasm of central portion of left female breast, unspecified estrogen receptor status (CMS/HCC) [C50.112] Miscellaneous samples (specimen) SPECIMEN FROM BREAST OBTAINED BY INCISIONAL BIOPSY OF BREAST MASS / Unknown 09/09/2022 12:28 PM CDT 09/09/2022 12:41 PM CDT Comment:Pre-op diagnosis: Malignant neoplasm of central portion of left female breast, unspecified estrogen receptor status (CMS/HCC) [C50.112] Miscellaneous samples (specimen) SPECIMEN FROM BREAST OBTAINED BY INCISIONAL BIOPSY OF BREAST MASS / Unknown 09/09/2022 12:30 PM CDT 09/09/2022 12:41 PM CDT Comment:Pre-op diagnosis: Malignant neoplasm of central portion of left female breast, unspecified estrogen receptor status (CMS/HCC) [C50.112] Valeria Chu MD LAB - PATHOLOGY/CYT OLOGY ORDERABLES Performing Organization Address City/State/[facility] Co de Phone Number [facility] [address] [place] [address] * LARYNGEAL MASK AIRWAY (09/09/2022 11:46 AM CDT) Narrative Jethro Barrientos APRN-CRNA - 09/09/2022 11:46 AM CDT Jethro Barrientos APRN-CRNA 09/09/2022 11:46 AM LMA Placement Procedure/LDA Note: Patient Location: OR. LMA Insertion Date/Time: 09/09/2022 11:41 AM Procedure: LMA. Pretreatment: 100% O2 Induction: standard IV Patient position: sniffing. Mask Ventilation: not attempted Type: LMA Size: 4 Number of Attempts: 1. Placement verified by: bilateral breath sounds and CO2 monitor Dentition unchanged? Yes Procedure Start Time: 09/09/2022 11:41 AM. Staff Section Anesthesia Provider: Jethro Barrientos APRN-LAKEISHA, Performed the procedure Valeria Chu MD GENERAL ANESTHESIA ORDERABLES * NM SENTINEL NODE INJECTION (09/09/2022 9:32 AM CDT) Anatomical Region Laterality Modality Breast, Upper Extremity, Other N [facility] Medicine 09/09/2022 11:1 5 AM CDT Impressions 09/09/2022 11:16 AM CDT IMPRESSION: Successful placement of 4 periareolar injections in the left breast. > Interpreting Provider: Dharmesh Harris DO on 09/09/2022 11:16 AM Narrative 09/09/2022 11:16 AM CDT PROCEDURE: NM SENTINEL NODE INJECTION, DATE/TIME OF EXAM: 09/09/2022 9:32 AM, LOCATION [facility] INDICATION: C50.112: Malignant neoplasm of central portion of left female breast (CMS/HCC) COMPARISON: Mammogram dated 08/13/2022 HISTORY: 72-year-old with breast cancer. TECHNIQUE: The patient was injected with 4 separate periareolar interdermal injections in the left breast with a total of 635 uCi technetium-99m tilmanocept (Lymphoseek). FINDINGS: The risks and benefits of the lymphoscintigraphy injection were discussed with the patient and informed consent was obtained. The skin of the left breast was cleansed with ChloraPrep. 4 periareolar injections were performed. The patient tolerated the injections well without immediate complication. The skin was covered with a bandage. Procedure Note Dharmesh Harris DO - 09/09/2022 PROCEDURE: NM SENTINEL NODE INJECTION, DATE/TIME OF EXAM: 39:32 AM, LOCATION [facility] INDICATION: C50.112: Malignant neoplasm of central portion of left female breast (CMS/HCC) COMPARISON: Mammogram dated 08/13/2022 HISTORY: 72-year-old with breast cancer. TECHNIQUE: The patient was injected with 4 separate periareolarinterdermal injections in the left breast with a total of 635 uCi technetium-99m tilmanocept (Lymphoseek). FINDINGS: The risks and benefits of the lymphoscintigraphy injectionwere discussed with the patient and informed consent was obtained. The skinof the left breast was cleansed with ChloraPrep. 4 periareolar injectionswere performed. The patient tolerated the injections well without immediate complication. The skin was covered with a bandage. IMPRESSION: Successful placement of 4 periareolar injections in the left breast. > Interpreting Provider: Dharmesh Harris DO on 09/09/2022 11:16 AM Valeria Chu MD NM ORDERABLES * MRI ABDOMEN WWO CONTRAST (09/05/2022 3:48 PM CDT) Anatomical Region Laterality Modality Abdomen Magnetic Resonan ce 09/05/2022 4:00 PM CDT Impressions 09/06/2022 9:21 AM CDT IMPRESSION: MULTIPLE LESIONS WITHIN THE LIVER ARE CONSISTENT WITH HEPATIC CYSTS. NO EVIDENCE OF A SUSPICIOUS MASS OR ADENOPATHY. SMALL BILATERAL RENAL CYSTS. Edited by Jeanette Schroeder on 09/06/2022 9:19 AM > Interpreting Provider: Ingrid Jaeger MD on 09/06/2022 9:21 AM Narrative 09/06/2022 9:21 AM CDT PROCEDURE: MRI ABDOMEN WWO CONTRAST DATE/TIME OF EXAM: 09/05/2022 3:50 PM CLINICAL INDICATION: C50.112: Malignant neoplasm of central portion of left female breast (CMS/HCC) Z17.0: Estrogen receptor positive status (ER+) K76.9: Liver disease, unspecified. Indeterminate liver lesions on recent CT. COMPARISON: CT abdomen 08/24/2022. TECHNIQUE: Multiplanar multisequence MR imaging of the abdomen before and following uneventful administration of intravenous contrast according to standard contrast-enhanced protocol. CONTRAST: GADOXETATE DISODIUM 0.25 MOL/L IV SOLN:10 mL FINDINGS: As noted on prior CT, multiple circumscribed masses are identified within the liver. All lesions exhibit fluid signal in both T1 and T2-weighted sequences. No enhancement within the lesions following the administration of intravenous gadolinium. No diffusion restriction. These are consistent with hepatic cysts. No suspicious solid mass lesions identified within the liver. Liver normal in size. Hepatic vasculature widely patent. No bile duct dilatation. Signal and morphology of the gallbladder, adrenal glands, pancreas, and spleen are within normal limits. Tiny cortical cysts noted in both kidneys. No suspicious renal lesions. Visualized bowel loops normal in caliber. No pathologically enlarged lymph nodes. Procedure Note Ingrid Jaeger MD - 09/06/2022 PROCEDURE: MRI ABDOMEN WWO CONTRAST DATE/TIME OF EXAM: 09/05/2022 3:50 PM CLINICAL INDICATION: C50.112: Malignant neoplasm of central portion ofleft female breast (CMS/HCC) Z17.0: Estrogen receptor positive status (ER+) K76.9: Liver disease, unspecified. Indeterminate liver lesions on recent CT. COMPARISON: CT abdomen 08/24/2022. TECHNIQUE: Multiplanar multisequence MR imaging of the abdomen before and following uneventful administration of intravenous contrast according to standard contrast-enhanced protocol. CONTRAST: GADOXETATE DISODIUM 0.25 MOL/L IV SOLN:10 mL FINDINGS: As noted on prior CT, multiple circumscribed masses are identifiedwithin the liver. All lesions exhibit fluid signal in both T1 and T2-weighted sequences. No enhancement within the lesions following theadministration of intravenous gadolinium. No diffusion restriction. These areconsistent with hepatic cysts. No suspicious solid mass lesions identified within the liver. Livernormal in size. Hepatic vasculature widely patent. No bile duct dilatation. Signal and morphology of the gallbladder, adrenal glands, pancreas, and spleen are within normal limits. Tiny cortical cysts noted in both kidneys. No suspicious renal lesions. Visualized bowel loops normal in caliber. No pathologically enlarged lymph nodes. IMPRESSION: MULTIPLE LESIONS WITHIN THE LIVER ARE CONSISTENT WITH HEPATIC CYSTS. NO EVIDENCE OF A SUSPICIOUS MASS OR ADENOPATHY. SMALL BILATERAL RENAL CYSTS. Edited by Jeanette Schroeder on 09/06/2022 9:19 AM > Interpreting Provider: Ingrid Jaeger MD on 09/06/2022 9:21 AM Taj Childers MD MR ORDERABLES * US BREAST BILATERAL COMPLETE (08/13/2022 11:49 AM CDT) Anatomical Region Laterality Modality Breast Bilateral Ultrasound 08/13/2022 11:5 5 AM CDT Narrative 08/13/2022 12:04 PM CDT EXAMINATION: Digital bilateral diagnostic mammogram and bilateral whole breast ultrasound on08/13/2022 11:55 AM. Low-dose digital breast tomosynthesis examination was performed with synthetic 2D and 3D acquisitions. Computer assisted detection was utilized. PRIOR: Prior imaging most recently 07/30/2022 left breast post clip mammogram [facility] and dating back to 2019 [facility]. Her last bilateral screening mammogram was performed 08/05/2021 HISTORY: 72-year-old female who presented with left nipple tenderness in February 2022 and recently underwent ultrasound-guided biopsy of the palpable subareolar left breast mass performed by Dr. Chu with pathology of invasive ductal carcinoma Supplemental whole breast screening ultrasound was requested as the patient is unable to tolerate preoperative MRI BREAST PARENCHYMAL DENSITY: The breasts are heterogeneously dense, which may obscure small masses. FINDINGS: There is a tissue marker deep to the left nipple. No suspicious masses, areas of architectural distortion or microcalcifications are evident on synthetic 2D or tomosynthesis images. Ultrasound was performed in all four quadrants and subareolar regions of both breasts and both axilla by the physician credentialing specialist. There is postbiopsy change in the subareolar left breast. There is a 5 mm anechoic mass in the 2:00 position of the left breast 7 cm from the nipple consistent with a benign cyst. There is no axillary adenopathy. OVERALL ASSESSMENT: BIRADS Category 6: Known biopsy-proven malignancy - appropriate action should be taken. RECOMMENDATION: Appropriate surgical management per Dr. Chu Findings and recommendation were discussed with the patient by Dr. Gleason. Thank you for allowing us to participate in the care of your patient. [facility] utilizes [employer] as a reminder system to notify patients of their next recommended mammogram. > Interpreting Provider: Molly Gleason MD on 08/13/2022 12:04 PM Valeria Chu MD US ORDERABLES * (ABNORMAL) LDH BLOOD (08/07/2022 1:16 PM CDT) LDH 291(H) 125 - 220 U/L [facility] INSURANCE BILL Blood BLOOD SPECIMEN / Unknown 08/07/2022 1:16 PM CDT 08/07/2022 Narrative Resulting Agency Comment Lab Testing performed at: [facility] [address] [facility] [id number] Taj Childers MD LAB - CHEMISTRY TREMAINE FIORE [facility] INSURANCE BILL [address] [place] [address] * MAMMO LEFT POST CLIP OR WIRE (07/30/2022 4:40 PM CDT) Anatomical Region Laterality Modality Breast Left Mammography 07/31/2022 4:09 PM CDT Impressions 07/31/2022 4:11 PM CDT : A two-view Left digital mammogram, including digital breast tomosynthesis (DBT), obtained post procedure demonstrates that the tissue marker clip is in expected position. Dr. Chu, performed the procedure. > Interpreting Provider: Criselda Mesa MD on 07/31/2022 4:11 PM Narrative 07/31/2022 4:11 PM CDT EXAMINATION: DIGITAL MAMMO LEFT POST CLIP OR WIRE INDICATION: N63.42: Unspecified lump in left breast, subareolar HISTORY: Left breastultrasound-guided biopsy. Valeria Chu MD MAMMO ORDERABLES Care Teams Nailing Machine Feeder Relationship Specialty Start Date End Date Raymon Juarez MD [address] [employer] [address] [place] [address] PCP - General Family Medicine 07/30/22
== END 2024-03-27 13:37 | disposition home or self-care (01) ==
LOC: ANHLAB 13:39
PROVIDERS: PCP Family Medicine; Visit Provider Physician Assistant Medical
DX: U07.1 COVID-19 (principal)
CPT/HCPCS: 87637